=== PATIENT | male | born 1960 | race Caucasian/White ===

== ENCOUNTER 2021-10-07 14:17 | Emergency (ER) | payer OTHER, SELFPAY ==
--- NOTE | ~2021-10-07 | CT_ITS ---
EXAMINATION: CT chest abdomen pelvis wo con DATE: 10/07/2021 16:18 INDICATION: Left chest and right arm pain after a large cabinet fell and pin the patient 3 days prior . TECHNIQUE: Computed tomography (CT) of the chest, abdomen, and pelvis was performed without intraveno us contrast. Automated exposure control and iterative reconstruction technique were employed. The dos e-length product was 500.90 mGy-cm. COMPARISON: None FINDINGS: CHEST CT: Mild emphysema. Linear atelectasis/scarring in the dependent aspect of the bilateral lower lobes. No pneumonia, pulmonary edema, pleural effusion or pneumothorax. Heart size is normal. No pericardial ef fusion. Thoracic aorta is normal in caliber with no periaortic stranding to suggest an acute traumati c aortic injury. No pathologically enlarged thoracic lymphadenopathy. Chronic appearing mild anterior wedging at T7 and T8. Mild thoracic spondylosis. No acute fractures identified. ABDOMEN/PELVIS CT: Liver, gallbladder, spleen, pancreas, bilateral adrenal glands and right kidney are normal. 2-3 mm no nobstructing stone at a lower pole calyx of the left kidney. There is moderate colonic diverticulosis with a sigmoid and descending colon predominance without adjacent inflammatory change to suggest div erticulitis. Small bowel and appendix are normal. Bladder is normal. Prostatomegaly measuring 4.6 x 3 .5 cm. No free intraperitoneal gas or fluid. There is calcified atherosclerosis of the normal calibe r abdominal aorta and bilateral iliac arteries. arteries. Additional chronic appearing mild anterior wedging at L1. No acute fractures identified. IMPRESSION: 1. No acute fracture or evident vascular or visceral organ injury in the chest, abdomen or pelvis. 2. Nonobstructing 2-3 mm left renal stone. 3. Diverticulosis. 4. Prostatomegaly. Reviewed, dictated and finalized at location B.
[2021-10-07 14:18] VITALS: BP 143/65; PULSE 76; RESP 18; TEMP 36.8; O2SAT 100
--- NOTE | 2021-10-07 14:21 | ECG_ITS ---
Measurements Intervals [place] Rate: 69 P: 72 [place]: 168 QRS: -68 QRSD: 138 T: 38 QT: 352 QTc: 377 Interpretive Statements SINUS RHYTHM RIGHT BUNDLE BRANCH BLOCK LEFT ANTERIOR FASCICULAR BLOCK BASELINE ARTIFACT- I, II, III, AVF, V3-V6 ABNORMAL ECG Electronically Signed On 10-07-2021 14:44:00 CDT by Chu Yo D.O.
--- NOTE | 2021-10-07 14:31 | ED.GENADULT ---
HPI - General Adult General Chief complaint: Unspecified Stated complaint: cabinet fell on pt. Time Seen by Provider: 10/07/21 14:31 Source: patient Mode of arrival: ambulatory Limitations: no limitations History of Present Illness HPI narrative: Patient drove himself to the emergency room complaining of diffuse chest pain across the chest and right upper quadrant started 4 days ago, after a wood cabinet about 100 pounds fell 4 feet height on his chest. He denies other injuries. Pain is getting worse. He denies any fever, chills, nausea, vomiting, shortness of breath, back pain or other injuries. Related Data Allergies Allergy/AdvReac Type Severity Reaction Status Date / Time amoxicillin Allergy Severe Swelling Verified 10/07/21 15:38 of Lip/Tongue/Throat Iodinated Contrast Media Allergy Swelling Verified 10/07/21 16:19 of Lip/Tongue/Throat Review of Systems Review of Systems: All systems reviewed & are unremarkable except as noted in HPI and below Exam Narrative: General appearance: Well-developed, well-nourished Skin: Normal color Head: Normocephalic, nontraumatic Eyes: Clear conjunctiva ENT: Oropharynx normal, ears normal, nose normal Neck: Supple, nontender Chest and respiratory: Airway patent, no respiratory distress, no accessory muscle use, bruises of left chest, diffuse tenderness Heart: Regular rate/rhythm Abdomen: Soft, nontender, no organomegaly, quiet bowel sounds Vascular: Normal peripheral pulses, normal capillary refill. 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, no gross motor deficit Course Vital Signs Vital signs: Vital Signs Temperature 36.8 C 10/07/21 14:18 Pulse Rate 76 10/07/21 14:18 Respiratory Rate 18 10/07/21 14:18 Blood Pressure 143/65 H 10/07/21 14:18 Pulse Oximetry 100 10/07/21 14:18 Oxygen Delivery Room Air 10/07/21 14:18 Temperature 36.8 C 10/07/21 14:18 Pulse Rate 76 10/07/21 14:18 Respiratory Rate 18 10/07/21 14:18 Blood Pressure 143/65 H 10/07/21 14:18 Pulse Oximetry 100 10/07/21 14:18 Oxygen Delivery Room Air 10/07/21 14:18 Medical Decision Making Differential Diagnosis Differential Diagnosis: rib fracture, pulmonary contusion, pneumothorax, hemothorax, liver injury. Vital Signs Vital Signs: Vital Signs Temperature 36.8 C 10/07/21 14:18 Pulse Rate 76 10/07/21 14:18 Respiratory Rate 18 10/07/21 14:18 Blood Pressure 143/65 H 10/07/21 14:18 Pulse Oximetry 100 10/07/21 14:18 Oxygen Delivery Room Air 10/07/21 14:18 Temperature 36.8 C 10/07/21 14:18 Pulse Rate 76 10/07/21 14:18 Respiratory Rate 18 10/07/21 14:18 Blood Pressure 143/65 H 10/07/21 14:18 Pulse Oximetry 100 10/07/21 14:18 Oxygen Delivery Room Air 10/07/21 14:18 Lab Data Result diagrams: 10/07/21 15:21 10/07/21 15:21 Labs: Lab Results 10/07/21 10/07/21 Range/Units 15:21 15:21 WBC 11.8 H (4.5-10.0) K/mm3 RBC 4.51 L (4.6-6.20) M/mm3 Hgb 14.9 (14.0-18.0) g/dL Hct 43.5 (42.0-52.0) % MCV 96.5 (80-100) fl MCH 33.0 (26-34) pg MCHC 34.3 (32-36) g/dl RDW 13.2 (11.5-14.5) % Plt Count 211 (150-375) k/mm3 MPV 9.7 (7.4-10.4) fl Immature Gran % (Auto) 0.3 (0-0.5) % Neut % (Auto) 78.2 H (45.5-73.1) % Lymph % (Auto) 13.8 L (18.3-44.2) % [place] % (Auto) 5.5 (2.6-8.5) % Eos % (Auto) 1.9 (0-4.4) % Baso % (Auto) 0.3 (0.2-1.2) % Lymph # (Auto) 1.63 (0.9-3.2) K/mm3 [place] # (Auto) 0.7 H (0.1-0.6) K/mm3 Eos # (Auto) 0.2 (0-0.3) K/mm3 Baso # (Auto) 0.0 (0.
[2021-10-07 14:46] VITALS: BP 122/72; PULSE 70; RESP 18; O2SAT 98
[2021-10-07 15:30] LABS: Basophils Percent Auto 0.3 % (0.2-1.2); Eosinophils Absolute Auto 0.2 K/mm3 (0-0.3); Eosinophils Percent Auto 1.9 % (0-4.4); Hematocrit 43.5 % (42.0-52.0); Hemoglobin 14.9 g/dL (14.0-18.0); Immature Granulocyte Absolute 0.04 K/mm3 (0.00-0.031); Immature Granulocyte Percent A 0.3 % (0-0.5); Lymphocytes Absolute Auto 1.63 K/mm3 (0.9-3.2); Lymphocytes Percent Auto 13.8 % (18.3-44.2); Mean Corpuscular HGB Conc 34.3 g/dl (32-36); Mean Corpuscular Volume 96.5 fl (80-100); Mean Platelet Volume 9.7 fl (7.4-10.4); Monocytes Absolute Auto 0.7 K/mm3 (0.1-0.6); Monocytes Percent Auto 5.5 % (2.6-8.5); Neutrophils Absolute Auto 9.2 K/mm3 (1.3-6.7); Neutrophils Percent Auto 78.2 % (45.5-73.1); Platelet Count Result 211 k/mm3 (150-375); Red Blood Count 4.51 M/mm3 (4.6-6.20); Red Cell Distribution Width 13.2 % (11.5-14.5); White Blood Count 11.8 K/mm3 (4.5-10.0)
[2021-10-07 15:38] LABS: Alanine Aminotransferase 20 U/L (6-50); Albumin Level 4.4 g/dL (3.5-5.1); Alkaline Phosphatase 70 U/L (38-126); Anion Gap 5 mmol/L (8-16); Aspartate Amino Transferase 24 U/L (17-59); Bilirubin,Total 0.3 mg/dL (0.2-1.3); Blood Urea Nitrogen 6 mg/dL (9-20); Carbon Dioxide 28 mmol/L (22-30); Chloride 107 mmol/L (98-107); Estimated CRCL calculation 90 ml/min; Estimated Glomerular Filt Rate > 60; Glucose 93 mg/dL (65-110); Lipase 344 U/L (23-300); Potassium 4.3 mmol/L (3.4-5.0); Sodium 140 mmol/L (137-145)
[2021-10-07] MEDS: HYDROcodone/acetaminophen (*CRX) 5-325 MG TABLET 1 TAB PO (15:43)
--- NOTE | 2021-10-07 15:43 | PC.NURSE ---
pt states that motrin and tylenol tears up his stomach. pt refusing motrin. states will take narcotic.
[2021-10-07 15:49] LABS: Troponin I < 0.012 ng/mL (0.000-0.034)
[2021-10-07 16:02] VITALS: BP 127/68; PULSE 65; RESP 17; O2SAT 98
--- NOTE | 2021-10-07 16:04 | PC.NURSE ---
at bedside for iv line placement and pt stating that he had dye one time that almost killed me . unsure of what dye or what test it was. when asked if he has an iodine allergy pt responds with a little
[2021-10-07 17:30] VITALS: BP 118/65; PULSE 67; RESP 18; O2SAT 100
== END 2021-10-07 17:31 | disposition home or self-care (01) ==
PROVIDERS: Emergency Provider Emergency Medicine; PCP Internal Medicine
DX: S20.212A Contusion of left front wall of thorax, initial encounter (principal); N20.0 Calculus of kidney; K57.90 Diverticulosis of intestine, part unspecified, without perforation or abscess without bleeding; N40.0 Benign prostatic hyperplasia without lower urinary tract symptoms; I45.2 Bifascicular block; W20.8XXA Other cause of strike by thrown, projected or falling object, initial encounter
CPT/HCPCS: 36415; 71250; 74176; 80053; 83690; 84484; 85025; 93005; 99284; A9270

== ENCOUNTER 2022-01-21 14:00 | Outpatient (CLI) | payer OTHER, SELFPAY ==
[2022-01-21 15:54] LABS: Basophils Percent Auto 0.5 % (0.2-1.2); Eosinophils Absolute Auto 0.2 K/mm3 (0-0.3); Eosinophils Percent Auto 2.4 % (0-4.4); Hemoglobin 14.4 g/dL (14.0-18.0); Immature Granulocyte Absolute 0.05 K/mm3 (0.00-0.031); Immature Granulocyte Percent A 0.6 % (0-0.5); Lymphocytes Absolute Auto 1.77 K/mm3 (0.9-3.2); Lymphocytes Percent Auto 21.6 % (18.3-44.2); Mean Corpuscular HGB Conc 33.5 g/dl (32-36); Mean Corpuscular Volume 98.6 fl (80-100); Mean Platelet Volume 10.7 fl (7.4-10.4); Monocytes Absolute Auto 0.6 K/mm3 (0.1-0.6); Monocytes Percent Auto 7.6 % (2.6-8.5); Neutrophils Absolute Auto 5.5 K/mm3 (1.3-6.7); Neutrophils Percent Auto 67.3 % (45.5-73.1); Platelet Count Result 180 k/mm3 (150-375); Red Blood Count 4.36 M/mm3 (4.6-6.20); Red Cell Distribution Width 13.7 % (11.5-14.5); White Blood Count 8.2 K/mm3 (4.5-10.0)
[2022-01-21 16:08] LABS: Add Urine Microscopic? NO; Appearance Urine Clear (Clear); Bilirubin Urine Negative (Negative); Blood Urine Negative (Negative); Color Urine Yellow (Yellow); Glucose Urine UA Negative (Negative); Ketones Urine Negative (Negative); Leukocyte Esterase Ur Negative LEU/UL (NEGATIVE); Nitrate Urine Negative (Negative); Protein Urine Negative (Negative); Specific Grav Ur <= 1.005 (1.001-1.035); Urobilinogen Urine 0.2 mg/dL (<2.0)
[2022-01-21 16:24] LABS: Vitamin D 25 Hydroxy 18.2 ng/mL
[2022-01-21 16:53] LABS: Alanine Aminotransferase 19 U/L (6-50); Albumin Level 4.5 g/dL (3.5-5.1); Alkaline Phosphatase 70 U/L (38-126); Anion Gap 9 mmol/L (8-16); Aspartate Amino Transferase 24 U/L (17-59); Bilirubin,Total 0.5 mg/dL (0.2-1.3); Blood Urea Nitrogen 8 mg/dL (9-20); Calcium 9.1 mg/dL (8.4-10.2); Carbon Dioxide 21 mmol/L (22-30); Chloride 107 mmol/L (98-107); Cholesterol 214 mg/dL (0-200); Estimated Glomerular Filt Rate > 60; Glucose 116 mg/dL (65-110); HDL Direct 38 mg/dL; Potassium 3.8 mmol/L (3.4-5.0); Sodium 137 mmol/L (137-145); Triglycerides 180 mg/dL (<150); Uric Acid 5.6 mg/dL (3.5-8.5)
[2022-01-21 17:13] LABS: LDL Cholesterol Direct 126 mg/dL
[2022-01-21 17:27] LABS: Prostate Specific Antigen 0.3 ng/mL (< OR = 4.0)
== END 2022-01-21 14:01 | disposition home or self-care (01) ==
PROVIDERS: PCP Internal Medicine; Visit Provider Internal Medicine
DX: Z00.00 Encounter for general adult medical examination without abnormal findings (principal); K21.9 Gastro-esophageal reflux disease without esophagitis; E11.9 Type 2 diabetes mellitus without complications
CPT/HCPCS: 36415; 80053; 80061; 81003; 82306; 82607; 84153; 84443; 84550; 85025

== ENCOUNTER 2024-02-13 09:13 | Observation (INO) | payer OTHER, SELFPAY ==
[2024-02-13] VITALS (24 sets, daily range): BP systolic 107–140; BP diastolic 57–98; PULSE 54–175; RESP 12–28; TEMP 36.4–36.7; O2SAT 91–98; BMI 23.6
--- NOTE | ~2024-02-13 | XR_ITS ---
EXAMINATION: XR chest 2V 02/13/2024 10:02 INDICATION: Chest pain and shortness of breath PROCEDURE: 2 view chest COMPARISON: No prior studies for comparison. FINDINGS: The lungs are clear. The lungs are hyperinflated which is consistent with, but not diagnost ic of chronic obstructive pulmonary disease. The cardiomediastinal silhouette is within normal limit s. There are no pleural effusions. There is no pneumothorax suspected. IMPRESSION: 1: NO ACUTE CARDIOPULMONARY DISEASE. Reviewed, dictated and finalized at location B.
--- NOTE | 2024-02-13 09:14 | ECG_ITS ---
Test Date: 2024-02-13 09:21:32 Measurements Intervals [place] Rate: 151 P: 0 [place]: 0 QRS: -77 QRSD: 137 T: 87 QT: 309 QTc: 491 Interpretive Statements ATRIAL FIBRILLATION WITH RAPID VENTRICULAR RESPONSE RIGHT BUNDLE BRANCH BLOCK LEFT ANTERIOR FASCICULAR BLOCK LEFT VENTRICULAR HYPERTROPHY WITH ST-T CHANGE BASELINE ARTIFACT- I, II, AVR ABNORMAL ECG No previous ECG available for comparison Electronically Signed On 02-13-2024 15:32:11 CDT by Chu Yo D.O.
--- NOTE | 2024-02-13 09:23 | ED.CHESTPAIN ---
HPI - Chest Pain General Chief Complaint: Chest Pain Stated Complaint: I think I'm having a heart attack Time Seen by Provider: 02/13/24 09:23 Source: patient Limitations: no limitations History of Present Illness HPI narrative: 63 YEARS OLD WHITE MALE DROVE HIMSELF TO THE EMERGENCY ROOM COMPLAINING OF INTERMITTENT SHORTNESS OF BREATH, DIZZINESS, HEADACHE, POUNDING HEARTBEAT FOR OVER 1 MONTH. GETTING WORSE LATELY AND MORE PROLONGED THAN BEFORE. PATIENT HAVE TREMENDOUS AMOUNT OF STRESS LATELY, ABOUT TO LOSE HIS HOUSE AND BE HOMELESS. HE SMOKES MORE THAN 2 PACKS OF CIGARETTES A DAY, DENIES ALCOHOL OR DRUG USE. PATIENT IS HEALTHY OTHERWISE, DOES NOT TAKE MEDICINE AT HOME. Related Data Allergies Allergy/AdvReac Type Severity Reaction Status Date / Time amoxicillin Allergy Severe Swelling Verified 02/13/24 09:18 of Lip/Tongue/Throat Iodinated Contrast Media Allergy Swelling Verified 02/13/24 09:18 of Lip/Tongue/Throat Review of Systems Review of Systems: All systems reviewed & are unremarkable except as noted in HPI and below Exam Narrative: GENERAL APPEARANCE: WELL-DEVELOPED, WELL-NOURISHED, RESTLESS, ANXIOUS SKIN: NORMAL COLOR HEAD: NORMOCEPHALIC, NONTRAUMATIC EYES: CLEAR CONJUNCTIVA ENT: OROPHARYNX NORMAL, EARS NORMAL, NOSE NORMAL NECK: SUPPLE, NONTENDER CHEST AND RESPIRATORY: AIRWAY PATENT, NO RESPIRATORY DISTRESS, NO ACCESSORY MUSCLE USE HEART: TACHYCARDIA, IRREGULAR IRREGULARITY ABDOMEN: SOFT, NONTENDER, NO ORGANOMEGALY, QUIET BOWEL SOUNDS VASCULAR: NORMAL PERIPHERAL PULSES, NORMAL CAPILLARY REFILL. MUSCULOSKELETAL: NORMAL RANGE OF MOTION, NONTENDER BACK NEUROLOGIC: ALERT AND ORIENTED ?3, CONE MARKER IS NORMAL TESTED, NO GROSS MOTOR DEFICIT Course Consultations Consultation #1: DR COSTELLO TEXT EKG, AGREED THE EKG SHOWING FINDING SECONDARY TO RIGHT BUNDLE-BRANCH BLOCK. PATIENT DENIED ANY CHEST PAIN. ADMIT TO HOSPITALIST, ACCEPTED CONSULT. Date: 02/13/24 Time: 11:49 Vital Signs Vital signs: Vital Signs Temperature 36.7 C 02/13/24 09:16 Pulse Rate 161 H 02/13/24 09:16 Respiratory Rate 27 H 02/13/24 09:16 Blood Pressure 112/98 H 02/13/24 09:16 Pulse Oximetry 98 02/13/24 09:16 Oxygen Delivery Room Air 02/13/24 09:16 Temperature 36.7 C 02/13/24 09:16 Pulse Rate 137 H 02/13/24 10:31 Respiratory Rate 18 02/13/24 10:31 Blood Pressure 109/69 02/13/24 10:31 Pulse Oximetry 95 02/13/24 10:31 Oxygen Delivery Room Air 02/13/24 09:26 MDM - Chest Pain MDM Narrative Medical decision making narrative: PATIENT PRESENTS WITH INTERMITTENT SHORTNESS OF BREATH, BOUNDING HER BEATS AND A LOT OF STRESS VITAL SIGNS SHOWED HEART RATE OF 161 BEATS PER MINUTE, IRREGULAR IRREGULARITY, RESPIRATIONS 27 PER MINUTE PHYSICAL EXAMINATION SHOWED ANXIOUS, RESTLESS PATIENT WITH TACHYCARDIA, IRREGULAR IRREGULARITY, MONITOR SHOWING AFIB WITH RVR DIFFERENTIAL DIAGNOSE AFIB WITH RVR SECONDARY TO STRESS, LACK OF SLEEP, HYPERTHYROIDISM, CORONARY ARTERY DISEASE, CARDIAC VALVE ABNORMALITIES. BLOOD WORKUP TODAY SHOWED CARBON DIOXIDE OF 20, CHLORIDE OF 108, PATIENT WAS HYPERVENTILATING ON ARRIVAL TO THE ED CHEST X-RAY SHOWED NO ACUTE ABNORMALITIES EKG ON ARRIVAL SHOWED AFIB WITH RVR CARDIZEM BOLUS AND DRIP STARTED, IV ATIVAN GIVEN PATIENT HEART RATE IS IMPROVING CURRENTLY LESS THAN 100 BEATS PER MINUTE, STILL AFIB. ADMIT TO HOSPITALIST, WITH NEW ONSET OF AFIB WITH RVR, ANXIETY LIKE SYMPTOMS. REPEATED EKG SHOWED THAT THE PATIENT HAVE NORMAL SINUS RHYTHM AT 65 BEATS PER MINUTE, ST ELEVATION IN V2 AND POSSIBLE V3 HIGH LIKELY SECONDARY TO RIGHT BUNDLE-BRANCH BLOCK, CURRENTLY PATIENT FEELING MUCH BETTER, DENYING ANY SYMPT
[2024-02-13] MEDS: dilTIAZem HCl INJ 25 MG/5 ML VIAL 10 MG IV PUSH (09:31)
[2024-02-13] MEDS: dilTIAZem 100 MG/100 ML 100 MG/100 ML BAG IV CONT (09:32)
[2024-02-13] MEDS: ENOXAPARIN 80 MG/0.8 ML SYRINGE SUB-Q (09:34)
[2024-02-13] MEDS: LORazepam INJ (*CRX) 2 MG/ML VIAL 1 MG IV PUSH ×2 (09:35→10:40)
[2024-02-13 09:38] LABS: Basophils Percent Auto 0.2 % (0.2-1.2); Eosinophils Absolute Auto 0.1 K/mm3 (0-0.3); Eosinophils Percent Auto 1.4 % (0-4.4); Hemoglobin 16.2 g/dL (14.0-18.0); Immature Granulocyte Absolute 0.04 K/mm3 (0.00-0.031); Immature Granulocyte Percent A 0.4 % (0-0.5); Lymphocytes Absolute Auto 1.64 K/mm3 (0.9-3.2); Lymphocytes Percent Auto 17.6 % (18.3-44.2); Mean Corpuscular HGB Conc 34.5 g/dl (32-36); Mean Corpuscular Hemoglobin 32.7 pg (26-34); Mean Corpuscular Volume 94.8 fl (80-100); Mean Platelet Volume 9.6 fl (7.4-10.4); Monocytes Absolute Auto 0.8 K/mm3 (0.1-0.6); Monocytes Percent Auto 8.9 % (2.6-8.5); Neutrophils Absolute Auto 6.7 K/mm3 (1.3-6.7); Neutrophils Percent Auto 71.5 % (45.5-73.1); Platelet Count Result 211 k/mm3 (150-375); Red Blood Count 4.96 M/mm3 (4.6-6.20); Red Cell Distribution Width 13.2 % (11.5-14.5); White Blood Count 9.3 K/mm3 (4.5-10.0)
[2024-02-13 09:48] LABS: Alanine Aminotransferase 17 U/L (6-50); Albumin Level 4.6 g/dL (3.5-5.1); Alkaline Phosphatase 105 U/L (38-126); Anion Gap 11 mmol/L (4-12); Aspartate Amino Transferase 23 U/L (17-59); Bilirubin,Total 0.6 mg/dL (0.2-1.3); Blood Urea Nitrogen 5 mg/dL (9-20); Calcium 9.1 mg/dL (8.4-10.2); Carbon Dioxide 20 mmol/L (22-30); Chloride 108 mmol/L (98-107); Estimated CRCL calculation 78 ml/min; Estimated Glomerular Filt Rate > 60; Glucose 113 mg/dL (65-110); Lipase 61 U/L (23-300); Potassium 3.7 mmol/L (3.4-5.0); Sodium 139 mmol/L (137-145)
[2024-02-13 09:54] LABS: INR 0.9; Prothrombin Time 13.1 Seconds (11.1-14.7)
[2024-02-13 10:00] LABS: Troponin I < 0.012 ng/mL (0.000-0.034)
--- NOTE | 2024-02-13 10:35 | PC.NURSE ---
pt requesting more Ativan due to anxiety. pt on monitor with VS stable. Verbal order by
--- NOTE | 2024-02-13 10:55 | ECG_ITS ---
Test Date: 2024-02-13 11:12:56 Measurements Intervals [place] Rate: 68 P: 163 [place]: 260 QRS: -80 QRSD: 130 T: 120 QT: 402 QTc: 430 Interpretive Statements SINUS RHYTHM RIGHT BUNDLE BRANCH BLOCK LEFT ANTERIOR FASCICULAR BLOCK LEFT VENTRICULAR HYPERTROPHY WITH ST-T CHANGE T WAVE ABNORMALITY IN ANTEROLATERAL LEADS- CONSIDER ISCHEMIA BASELINE ARTIFACT- I, III, AVR, AVL, AVF, V1-V6 ABNORMAL ECG Compared to ECG 02/13/2024 09:21:32 Atrial fibrillation no longer present T WAVE ABNORMALITY, CONSIDER ISCHEMIA NOW PRESENT Electronically Signed On 02-13-2024 15:34:48 CDT by Chu Yo D.O.
--- NOTE | 2024-02-13 11:24 | ECG_ITS ---
Test Date: 2024-02-13 11:26:18 Measurements Intervals [place] Rate: 65 P: 58 [place]: 171 QRS: -73 QRSD: 140 T: 95 QT: 414 QTc: 430 Interpretive Statements SINUS RHYTHM RIGHT BUNDLE BRANCH BLOCK LEFT ANTERIOR FASCICULAR BLOCK LEFT VENTRICULAR HYPERTROPHY AND ST-T CHANGE T WAVE ABNORMALITY IN ANTEROLATERAL LEADS- CONSIDER ISCHEMIA BASELINE ARTIFACT- I, III, AVL ABNORMAL ECG Compared to ECG 02/13/2024 11:12:56 NO SIGNIFICANT CHANGE Electronically Signed On 02-13-2024 15:35:53 CDT by Chu Yo D.O.
[2024-02-13 12:51] LABS: Troponin I 0.014 ng/mL (0.000-0.034)
--- NOTE | 2024-02-13 13:15 | ADMGEN ---
This patient, Terrance Chauhan, was admitted to IMU Room 206-01. Patient/family oriented to hospital policies and general routines including ID bracelet, bed and alarms, visiting hours, pain management, procedures, bathroom and other care routines, personal items, smoking policy, room service/diet, and visiting hours. Information on how to activate the Rapid Response Team has been discussed. Patient/Family are encouraged to report perceived risks to care and to ask questions if they do not understand what they are told or what they should do.
--- NOTE | 2024-02-13 13:15 | PM.IMHP ---
H&P: HPI History of Present Illness Date/Time: 02/13/24 14:00 Chief Complaint: Chest pain and shortness of breath. Narrative: This is a 63-year-old male smoker with anxiety who presented to the emergency department via private vehicle for evaluation of chest pain and shortness of breath. The patient provides the following history. He has had intermittent chest chest pain, shortness of breath, and dizziness over the past month or so. With further questioning he denies overt chest pain and instead reports that his heart feels as though it is pounding. He does not see a pattern as to when these symptoms occur but they are becoming increasingly more frequent. Additionally the patient states he has had a lot of stressors lately and is to the point where he is probably going to lose his home. This of course is causing him a lot of anxiety. He denies syncope, near syncope, pleuritic pain, orthopnea, paroxysmal nocturnal dyspnea, lower extremity edema, calf pain, nausea, vomiting, and sweats. In the ED: Pulse was as high as 175 on arrival with stable blood pressures. EKG showed rapid atrial fibrillation with right bundle-branch block; no significant ST segment depressions or elevations. CMP and CBC were without significant findings. Troponins have been negative x2. Chest x-ray showed no acute cardiopulmonary findings but did note hyperinflated lungs. He was given diltiazem 10 mg IV push and was started on a diltiazem drip. He was also given aspirin 324 mg and lorazepam 1 mg IV. Is being admitted in this setting for further treatment and evaluation. Review of Systems Review of Systems: 12 systems were reviewed and are negative except for as per HPI. [facility] Past Medical History Medical History (Updated 02/13/24 @ 13:24 by Hali Gonzalez PA-C) Tobacco abuse Family History Family History Father Cerebrovascular accident Acute myocardial infarction Mother Diabetes mellitus Hypertension Congestive heart failure History of blood clots Cerebrovascular accident Other Acute myocardial infarction Afib Social History Social History (Updated 02/13/24 @ 13:20 by Hali Gonzalez PA-C) Social History: Surrogate medical decision maker: Hannah Chauhan, mother. Code status: Full code. Smoking packs per day: 1 Smoking cigarettes per day: 20.0 Years smoked: 50 Smoking pack-years: 50.00 Smoking status: Current every day smoker Tobacco type: cigarettes Alcohol intake: never Substance use: never Do You Feel Safe in your Home?: Yes Lack of Transportation: No Lack of Food: Never True Current Housing: I Have Housing Concerned About Future Housing: YES Difficulty Paying Gas/Electric Bills: YES Difficulty Paying for Meds: No Currently Unemployed: No Education: Grade School Difficulty w/ Childcare or Family Care: No Spiritual care concerns: No Meds Home Medications and Allergies Home Medications Medication Instructions Recorded Confirmed Type No Home Medications 02/13/24 02/13/24 History Allergies Allergy/AdvReac Type Severity Reaction Status Date / Time amoxicillin Allergy Severe Swelling Verified 02/13/24 09:18 of Lip/Tongue/Throat Iodinated Contrast Media Allergy Swelling Verified 02/13/24 09:18 of Lip/Tongue/Throat Vital Signs Vital Signs - 24 hr 02/13/24 09:16 02/13/24 09:24 02/13/24 09:26 Temperature 98.0 F Pulse Rate 161 H 159 H Respiratory Rate 27 H Blood Pressure 112/98 H Pulse Oximetry 98 98 Oxygen Delivery Room Air Room Air 02/13/24 09:32 02/13/24 09:40 02/13/24 09:41 Temperature Pulse Rate 175 H 103 H 152 H Respiratory Rate 12 Blood Pressure 112/98 H 140/81 140/81 Pulse Oximetry 98 Oxygen Delivery 02/13/24 09:50 02/13/24 10:17 02/13/24 10:29 Temperature Pulse Rate 90 66 144 H Respiratory Rate 16 14 Blood Pressure 140/81 127/92 H 127
[2024-02-13] MEDS: METOPROLOL TARTRATE 12.5 MG TABLET PO (13:59)
--- NOTE | 2024-02-13 14:25 | ECG_ITS ---
Test Date: 2024-02-13 12:09:42 Measurements Intervals [place] Rate: 65 P: 50 [place]: 172 QRS: -74 QRSD: 140 T: 109 QT: 417 QTc: 434 Interpretive Statements SINUS RHYTHM RIGHT BUNDLE BRANCH BLOCK LEFT ANTERIOR FASCICULAR BLOCK LEFT VENTRICULAR HYPERTROPHY WITH ST-T CHANGE T WAVE ABNORMALITY IN ANTEROLATERAL LEADS- CONSIDER ISCHEMIA BASELINE ARTIFACT- I, III ABNORMAL ECG Compared to ECG 02/13/2024 11:26:18 NO SIGNIFICANT CHANGE Electronically Signed On 02-13-2024 15:38:05 CDT by Chu Yo D.O.
--- NOTE | 2024-02-13 15:40 | PC.NURSE ---
Reviewed and acknowledge charting Leonora Veliz [facility]
[2024-02-13 15:44] LABS: Troponin I 0.013 ng/mL (0.000-0.034)
--- NOTE | 2024-02-13 15:44 | ECG_ITS ---
Test Date: 2024-02-13 16:26:20 Measurements Intervals [place] Rate: 56 P: 62 SD: 166 QRS: -62 QRSD: 142 T: 111 QT: 446 QTc: 433 Interpretive Statements SINUS BRADYCARDIA RIGHT BUNDLE BRANCH BLOCK LEFT ANTERIOR FASCICULAR BLOCK LEFT VENTRICULAR HYPERTROPHY AND ST-T CHANGE T WAVE ABNORMALITY IN ANTEROLATERAL LEADS- CONSIDER ISCHEMIA ABNORMAL ECG Compared to ECG 02/13/2024 12:09:42 HEART RATE HAS DECREASED Electronically Signed On 02-13-2024 20:16:38 CDT by Chu Yo D.O.
[2024-02-13] MEDS: MIRTAZAPINE 15 MG TABLET 45 MG PO (20:59)
[2024-02-14] VITALS (10 sets, daily range): BP systolic 117–155; BP diastolic 64–82; PULSE 53–86; RESP 16–20; TEMP 36.2–36.8; O2SAT 93–98
--- NOTE | 2024-02-14 | ECHO_ITS ---
Patient Info Name: Terrance Chauhan Age: 63 years : 1960 Gender: Male Ht: 72 in Wt: 189 lbs BSA: 2.10 m2 Exam Date: 02/14/2024 9:37 AM Exam Location: Echo Lab Patient Status: Outpatient Admit Date: 02/13/2024 Staff Ordering Physician: Hali Gonzalez PA-C Attending Provider: Tarik Ch MD Referring Physician: Carlos BLAIR; Exam Type: CA echo doppler color flow Summary 1. The left ventricle size and systolic function is normal. 2. LVEF visually appears 60-65%. Left Ventricle The left ventricle size and systolic function is normal. LVEF visually appears 60-65%. Right Ventricle The right ventricle size and systolic function is. Left Atria The left atrium is normal size. Right Atria The right atrium is normal size. Aortic Valve Aortic valve is trileaflet. It opens well. There is no aortic regurgitation. Pulmonic Valve The pulmonic valve is not well visualized. There is no color Doppler evidence of pulmonary regurgitation. Mitral Valve The mitral valve leaflets are thin and pliable. There is no mitral regurgitation. Tricuspid Valve The tricuspid valve leaflets are thin and pliable. There is trivial tricuspid regurgitation. Inferior Vena Cava Normal inferior vena cava with >50% collapse upon inspiration consistent with normal right atrial pressure, 3 mmHg. Normal inferior vena cava with >50% collapse upon inspiration consistent with normal right atrial pressure, 3 mmHg. Aorta The aortic root at the level of the sinus of Valsalva is normal in diameter measuring 3.2 cm. Left Ventricular Outflow Tract Name Value Normal LVOT 2D LVOT Diameter 1.9 cm LVOT Doppler LVOT Peak Gradient 7 mmHg LVOT Mean Gradient 4 mmHg LVOT VTI 32 cm LVOT VTI/AV VTI Ratio 0.9 LVOT Stroke Volume 90 ml LVOT CO 5.0 l/min LVOT CI 2.4 l/min/m2 Pulmonic Valve Name Value Normal PV Doppler PV Peak Gradient 2 mmHg Mitral Valve Name Value Normal MV Doppler MV Decel [place] 284 cm/s2 MV PHT 70 ms MV Area (PHT) 3.1 cm2 4.0-5.0 MV Diastolic Function MV E Peak Velocity 69 cm/s MV A Peak Velocity 65 cm/s MV E/A 1.1 MV Decel Time 242 ms MV Annular TDI
[2024-02-14 08:08] LABS: Anion Gap 3 mmol/L (4-12); Blood Urea Nitrogen 7 mg/dL (9-20); Calcium 8.7 mg/dL (8.4-10.2); Carbon Dioxide 30 mmol/L (22-30); Chloride 106 mmol/L (98-107); Cholesterol 183 mg/dL (0-200); Estimated CRCL calculation 86 ml/min; Estimated Glomerular Filt Rate > 60; Glucose 87 mg/dL (65-110); HDL Direct 36 mg/dL; Potassium 3.8 mmol/L (3.4-5.0); Sodium 139 mmol/L (137-145); Triglycerides 104 mg/dL (<150)
[2024-02-14 08:21] LABS: LDL Cholesterol Direct 119 mg/dL
[2024-02-14] MEDS: SERTRALINE HCL 50 MG TABLET 200 MG PO (09:19)
[2024-02-14] MEDS: METOPROLOL TARTRATE 12.5 MG TABLET PO (09:21)
--- NOTE | 2024-02-14 14:41 | PM.CNCAR ---
Assessment and Plan Assessment and plan (1) Atrial fibrillation with rapid ventricular response: Code(s): I48.91 - Unspecified atrial fibrillation Status: Acute Plan 63 yo man with HTN, active smoker, and anxiety presented with palpitations found to have atrial fibrillation with rapid ventricular rate. pAF - has since converted to sinus - CHADsVASc score of 1 - continue metoprolol at home dose - can follow up outpatient History of Present Illness History of Present Illness Consult date/time: 02/14/24 14:41 Requesting physician: Hali Gonzalez PA-C Consult reason: atrial fibrillation Reason For Visit: New Onset Afib w RVR/Anxiety Like Symptoms Narrative: 63 yo man with HTN, active smoker, and anxiety presented with palpitations. Associated sharp substernal chest pain and shortness of breath. Denies syncope. Typically physically active and can walk up to 1/2 mi and carry heavy materials. Have not noticed any decline in functional status. However he does endorse feeling significant stress. He states that this happened 1 other time last year. Review of Systems Review of Systems: All systems reviewed & are unremarkable except as noted in HPI and below PMFSH Past Medical History Medical History (Updated 02/13/24 @ 13:24 by Hali Gonzalez PA-C) Tobacco abuse Family History Family History Father Cerebrovascular accident Acute myocardial infarction Mother Diabetes mellitus Hypertension Congestive heart failure History of blood clots Cerebrovascular accident Other Acute myocardial infarction Afib Social History Social History (Updated 02/13/24 @ 13:20 by Hali Gonzalez PA-C) Social History: Surrogate medical decision maker: Hannah Perezley, mother. Code status: Full code. Smoking packs per day: 1 Smoking cigarettes per day: 20.0 Years smoked: 50 Smoking pack-years: 50.00 Smoking status: Current every day smoker Tobacco type: cigarettes Alcohol intake: never Substance use: never Do You Feel Safe in your Home?: Yes Lack of Transportation: No Lack of Food: Never True Current Housing: I Have Housing Concerned About Future Housing: YES Difficulty Paying Gas/Electric Bills: YES Difficulty Paying for Meds: No Currently Unemployed: No Education: Grade School Difficulty w/ Childcare or Family Care: No Spiritual care concerns: No Meds Home Medications and Allergies Home Medications Medication Instructions Recorded Confirmed Type No Home Medications 02/13/24 02/13/24 History Allergies Allergy/AdvReac Type Severity Reaction Status Date / Time amoxicillin Allergy Severe Swelling Verified 02/13/24 09:18 of Lip/Tongue/Throat Iodinated Contrast Media Allergy Swelling Verified 02/13/24 09:18 of Lip/Tongue/Throat Vital Signs Vital Signs - 24 hr 02/13/24 16:00 02/13/24 16:00 02/13/24 18:00 Temperature Pulse Rate 60 62 Respiratory Rate Blood Pressure Pulse Oximetry Oxygen Delivery Room Air 02/13/24 16:00 02/13/24 20:00 02/13/24 20:00 Temperature 36.7 C 36.4 C Pulse Rate 54 L 71 59 L Respiratory Rate 28 H 20 Blood Pressure 110/57 L 126/59 L Pulse Oximetry 91 94 Oxygen Delivery 02/13/24 22:00 02/13/24 20:00 02/13/24 23:28 Temperature Pulse Rate 54 L Respiratory Rate 18 Blood Pressure Pulse Oximetry 97 Oxygen Delivery Room Air Room Air 02/14/24 00:00 02/14/24 00:00 02/14/24 00:00 Temperature 36.7 C Pulse Rate 64 57 L Respiratory Rate 18 Blood Pressure 117/69 Pulse Oximetry 94 Oxygen Delivery Room Air 02/14/24 02:00 02/14/24 04:00 02/14/24 04:00 Temperature Pulse Rate 53 L 63 Respiratory Rate Blood Pressure Pulse Oximetry Oxygen Delivery Room Air 02/14/24 04:00 02/14/24 06:00 02/14/24 08:00 Temperature 36.2 C L 36.8 C Pulse Rate 55 L 54
--- NOTE | 2024-02-14 14:58 | PM.DS ---
DS: Admitting Diagnosis Discharge Date 02/14/24 Admitting Diagnosis Chest pain and shortness of breath DS: Discharge Diagnosis Discharge Diagnosis (1) Chest pain: Code(s): R07.9 - Chest pain, unspecified Status: Acute (2) Atrial fibrillation with rapid ventricular response: Code(s): I48.91 - Unspecified atrial fibrillation Status: Acute (3) Suspected chronic obstructive pulmonary disease based on initial evaluation: Code(s): J44.9 - Chronic obstructive pulmonary disease, unspecified Status: Acute (4) Tobacco abuse: Code(s): Z72.0 - Tobacco use Status: Acute (5) Anxiety: Code(s): F41.9 - Anxiety disorder, unspecified Status: Acute DS: Summary Hospital Course Reason for hospitalization: 63yo male smoker with anxiety who presented to the emergency department via private vehicle for evaluation of chest pain and shortness of breath. Please see H&P for details. Hospital Course: In the ED, patient had a pulse rate was as high as 175 with stable blood pressures. EKG showed rapid atrial fibrillation with right bundle-branch block; no significant ST segment depressions or elevations. CMP and CBC were without significant findings. Troponins were negative x3. Chest x-ray showed no acute cardiopulmonary findings but did note hyperinflated lungs. He was given diltiazem 10 mg IV push and was started on a diltiazem drip. He was also given aspirin 324 mg and lorazepam 1 mg IV. He converted to a sinus rhythm on a diltiazem drip. He was started on lower dose of metoprolol. He received enoxaparin 1 mg/kg in the ED though his [id number] is only 1 and so further anticoagulation was held. Echo showing EF 60-65% and overall normal appearing echocardiogram. Cardiology was consulted who recommended continuing metoprolol but no anticoagulation. He has been out of sertraline, hydroxyzine, and mirtazapine for nearly a month which was restarted here. Apnea link showed normal AHI and RI but 29minutes with SpO2<88%. He was educated about the benefits of smoking cessation. He overall did well and was able to be discharged home on 02/14/24. Noted to have low B12 level a few years ago so recommend he follow up with repeat testing by his PCP. Status at Discharge Cognitive/behavioral status at discharge: stable Time Spent with Patient Time attestation: Total time spent providing and/or coordinating discharge services: 35 minutes Time spent: Greater than 30 minutes Exam Narrative: AF 98.1 155/78 60 20 98% ra Gen - NARD Chest - CTA bilaterally, nml RR CV - RRR S1/S2. Tele showing PVCs Abd - Soft, NT/ND, Positive BS Ext - No pedal edema Neuro - Alert and oriented. Nonfocal exam. Psych - Nml mood and affect Skin - Warm and dry DS: Data Data Completed and Pending Labs on day of discharge: Labs from last 24 hours 02/14/24 02/13/24 07:51 14:55 Sodium 139 Potassium 3.8 Chloride 106 Carbon Dioxide 30 Anion Gap 3 L BUN 7 L Creatinine 0.80 Estim Creat Clear Calc 86 Estimated GFR > 60 Glucose 87 Calcium 8.7 Magnesium 2.0 Troponin I 0.013 Triglycerides 104 Cholesterol 183 LDL Cholesterol Direct 119 HDL Direct 36 Discharge Plan Discharge Attending physician on discharge: Leonel Ramírez Consulting providers: Jaret Boggs; Harshil Mireles Discharging Clinician: Leonel Ramírez Anticipated Discharge Date/Time: 02/14/24 15:13 Patient Disposition: Home, Self-Care Activity: as tolerated Diet: heart healthy Discharge Instructions: Stop using all products that contain tobacco or nicotine. Contact your doctor or call 911 and come to the Emergency Room if you have palpitations, lightheadedness with standing or other worrisome symptoms. Avoid NSAIDs (ibuprofen, naproxen, Aleve). Tylenol is safe to take. Follow-up with your primary care provider in 1-2 weeks. Please call for appointment. B-12
== END 2024-02-14 16:08 | disposition home or self-care (01) ==
LOC: ANHED 10:56 → ANHIMU 13:50 → ANH2MED 02-15 08:06 → ANHIMU 02-15 08:06
PROVIDERS: Physician Assistant; Admitting Provider General Practice; Emergency Provider Emergency Medicine; Visit Provider Internal Medicine
DX: I48.91 Unspecified atrial fibrillation (principal); R07.9 Chest pain, unspecified; R06.02 Shortness of breath; I45.10 Unspecified right bundle-branch block; R51.9 Headache, unspecified; J44.9 Chronic obstructive pulmonary disease, unspecified; F41.9 Anxiety disorder, unspecified; F17.210 Nicotine dependence, cigarettes, uncomplicated
CPT/HCPCS: 36415; 71046; 80048; 80053; 80061; 83690; 83735; 84443; 84484; 85025; 85610; 85730; 93005; 93306; 94762; 96365; 96366; 96372; 96375; 96376; 99285; A9270; G0378; J1650; J2060

== ENCOUNTER 2024-06-01 16:28 | Inpatient (IN) | payer OTHER, SELFPAY ==
[2024-06-01] VITALS (8 sets, daily range): BP systolic 111–131; BP diastolic 82–92; PULSE 70–81; RESP 12–20; TEMP 36.6–36.7; O2SAT 95–99; BMI 22.8
--- NOTE | ~2024-06-01 | XR_ITS ---
EXAMINATION: XR chest 1V 06/01/2024 18:01 INDICATION: Shortness of breath PROCEDURE: PA view of the chest COMPARISON: 02/13/2024 FINDINGS: The lungs are clear. The cardiomediastinal silhouette is within normal limits. There are no pleural effusions. There is no pneumothorax suspected. The lungs are hyperinflated which is consistent with, but not diagnostic of chronic obstructive pulmo nary disease. IMPRESSION: 1: NO ACUTE CARDIOPULMONARY DISEASE. Reviewed, dictated and finalized at location A. [employer]
--- NOTE | ~2024-06-01 | NM_ITS ---
EXAMINATION: NM lung vent and perfusion DATE: 06/02/2024 12:34 INDICATION: Shortness of breath. Elevated d-dimer. TECHNIQUE: 13.4 mCi xenon-133 by inhalation and 5.4 mCi Tc-99m MAA by intravenous route. Scintigraph ic images of the chest were obtained. COMPARISON: FINDINGS: There is homogeneous radiotracer activity throughout the lungs on the single breath ventilation seque nce. There are couple foci of intense activity in the right upper lobe and lingula on the perfusion i mages likely related to some clumping of the perfusion radiotracer. There is a small perfusion defect involving the mid left lower lung on the PASCUAL projection in the region of the caudal aspect of the fi ssure. There is otherwise relatively homogeneous perfusion throughout the lungs. No discrete ventila tion and perfusion mismatch is identified on the posterior scintigrams. IMPRESSION: 1. Low probability for pulmonary embolism. Reviewed, dictated and finalized at location B. [employer] MANAGER
--- NOTE | 2024-06-01 17:05 | ECG_ITS ---
Test Date: 2024-06-01 17:25:37 Measurements Intervals [place] Rate: 77 P: 76 NE: 152 QRS: -69 QRSD: 149 T: 81 QT: 424 QTc: 481 Interpretive Statements SINUS RHYTHM MARKED LEFT AXIS DEVIATION [QRS AXIS < -30] RIGHT BUNDLE BRANCH BLOCK [120+ ms QRS DURATION, UPRIGHT V1, 40+ ms S IN I/aVL/V4/V5/V6] MODERATE VOLTAGE CRITERIA FOR LVH, CONSIDER NORMAL VARIANT [MEETS CRITERIA IN ONE OF: R(aVL), S(V1), R(V5), R(V5/V6)+S(V1)] POSSIBLE SEPTAL MYOCARDIAL INFARCTION , OF INDETERMINATE AGE [30 ms Q WAVE IN V1/V2] Compared to ECG 02/13/2024 16:26:20 T-wave abnormality in the lateral leads no longer present Electronically Signed On 06-02-2024 14:28:24 CHIROPRACTIC NEUROLOGIST by Za Lopez M.D.
--- NOTE | 2024-06-01 17:07 | ED.SOB ---
HPI - SOB/Dyspnea General Chief Complaint: Shortness of Breath/Dyspnea <Elidia Laura APRN - Last Filed: 06/01/24 17:11> Stated Complaint: RESP SYMPTOMS FOR WEEKS <Elidia Laura APRN - Last Filed: 06/01/24 17:11> Time Seen by Provider: 06/01/24 17:00 <Elidia Laura APRN - Last Filed: 06/01/24 17:11> Focused HPI: Patient is a 63-year-old male who presents to the ER with shortness of breath, increased weakness, decreased appetite. He reports his symptoms started May 17, 2024. Patient reports he has a history of AFib, but does not take any medication to treat it. He reports he stays at home most of the time and has not been to the doctor in a while. Patient denies any recent fevers, chest pain, other signs/symptoms of infection. GENERAL: Ill-appearing, poorly-nourished, and in no acute distress. HEAD: Normocephalic, atraumatic. CHEST: Clear to auscultation (tight). ?Mild respiratory distress. HEART: Regular rate and rhythm.? NEURO: ?Alert and oriented x3. Patient screened in triage and initial orders placed.? ?Additional care and disposition to be based upon?diagnostic testing and treatment. <Elidia Laura APRN - Last Filed: 06/01/24 17:11> Source: patient <Josafat Jamison MD - Last Filed: 06/01/24 19:30> Mode of arrival: ambulatory <Josafat Jamison MD - Last Filed: 06/01/24 19:30> Limitations: no limitations <Josafat Jamison MD - Last Filed: 06/01/24 19:30> History of Present Illness HPI Narrative: 63-year-old with a history of COPD presents to the ER with a complains of 2 week history of shortness of breath, lack of energy. He states that he is unable to get good breath. He denies having any chest pain. Patient is states that he has not been using any inhalers for COPD. He denies any fever or chills. <Josafat Jamison MD - Last Filed: 06/01/24 19:30> MD elicited complaint: shortness of breath <Josafat Jamison MD - Last Filed: 06/01/24 19:30> Pertinent past history: COPD <Josafat Jamison MD - Last Filed: 06/01/24 19:30> Timing: intermittent <Josafat Jamison MD - Last Filed: 06/01/24 19:30> Severity: moderate <Josafat Jamison MD - Last Filed: 06/01/24 19:30> Exacerbating factors: exertion <Josafat Jamison MD - Last Filed: 06/01/24 19:30> Relieving factors: nothing <Josafat Jamison MD - Last Filed: 06/01/24 19:30> Known history of: COPD <Josafat Jamison MD - Last Filed: 06/01/24 19:30> Treatment prior to arrival: none <Josafat Jamison MD - Last Filed: 06/01/24 19:30> Related Data Allergies/Adverse Reactions: Allergies Allergy/AdvReac Type Severity Reaction Status Date / Time amoxicillin Allergy Severe Swelling Verified 06/01/24 16:29 of Lip/Tongue/Throat Iodinated Contrast Media Allergy Swelling Verified 06/01/24 16:29 of Lip/Tongue/Throat <Elidia Laura APRN - Last Filed: 06/01/24 17:11> Review of Systems Review of Systems: All systems reviewed & are unremarkable except as noted in HPI and below <Josafat Jamison MD - Last Filed: 06/01/24 19:30> Constitutional: Constitutional: Reports no additional constitutional complaints <Josafat Jamison MD - Last Filed: 06/01/24 19:30> Eyes: Eyes: Reports no additional eye complaints <Josafat Jamison MD - Last Filed: 06/01/24 19:30> ENT: Reports system reviewed and no additional complaints, except as documented <Josafat Jamison MD - Last Filed: 06/01/24 19:30> Cardiovascular: Cardiovascular: Reports no additional cardiovascular complaints <Josafat Jamison MD - Last Filed: 06/01/24 19:30> Respiratory: Respiratory: Reports as per HPI <Josafat Jamison MD - Last Filed: 06/01/24 19:30> Musculoskeletal: Musculoskeletal: Reports no additional musculoskeletal complaints <Josafat Jamison MD - Last Filed: 06/01/24 19:30> Neurologic: Reports system reviewed and no additional complaints, except as documented <Josafat Jamison MD - Last Filed: 06/01/24 19:30> PMFSH Past Medical History Medical History: Medical History Tobacco abuse <Elidia Laura APRN - Last Filed: 06/01/24 17:11> Family History Family History: Family History Father Cerebrovascular accident Acute myocardial infarction Mother Diabetes mellitus Hypertension Congestive heart failure History of blood clots Cerebrovascular accident Other Acute myocardial infarction Afib <Elidia Laura APRN - Last Filed: 06/01/24 17:11> Social History Social History: Social History Social History: Surrogate medical decision maker: Hannah Chauhan, mother. Code status: Full code. Smoking packs per day: 1 Smoking cigarettes per day: 20.0 Years smoked: 50 Smoking pack-years: 50.00 Smoking status: Current every day smoker Tobacco type: cigarettes Alcohol intake: never Substance use: never Do You Feel Safe in your Home?: Yes Lack of Transportation: No Lack of Food: Never True Current Housing: I Have Housing Concerned About Future Housing: YES Difficulty Paying Gas/Electric Bills: YES Difficulty Paying for Meds: No Currently Unemployed: No Education: Grade School Difficulty w/ Childcare or Family Care: No Spiritual care concerns: No <Elidia Laura APRN - Last Filed: 06/01/24 17:11> Exam Narrative: GENERAL: Well-appearing, well-nourished, and in no acute distress. HEAD: Normocephalic, atraumatic. EYES: PERRLA and EOMI. ENT: Nares clear, no rhinorrhea or epistaxis. Mucous membranes moist. NECK: Supple. CHEST: Clear to auscultation. No respiratory distress. HEART: Regular rate and rhythm. No murmur heard. Normal peripheral pulses. ABDOMEN: Soft, nontender, nondistended, normal active bowel sounds. EXTREMITIES: Normal range of motion. No edema. SKIN: Warm, dry, no rash. NEURO: No focal deficits. Alert and oriented x3. PSYCH: Normal mood and affect. <Josafat Jamison MD - Last Filed: 06/01/24 19:30> Course Course Emergency Course: Patient comfortably resting his SpO2 on room air is 98% I did inform him about his lab work and chest x-ray findings. Will admit him to the hospital for V/Q scan in the morning as is D-dimer is 3.86. Discussed with the hospitalist accepted the patient <Josafat Jamison MD - Last Filed: 06/01/24 19:30> Vital Signs Vital signs: Vital Signs Temperature 36.6 C 06/01/24 16:46 Pulse Rate 81 06/01/24 16:46 Respiratory Rate 20 06/01/24 16:46 Blood Pressure 131/82 06/01/24 16:46 Pulse Oximetry 97 06/01/24 16:46 Oxygen Delivery Room Air 06/01/24 16:46 Temperature 36.6 C 06/01/24 16:46 Pulse Rate 71 06/01/24 18:35 Respiratory Rate 20 06/01/24 18:35 Blood Pressure 131/82 06/01/24 16:46 Pulse Oximetry 97 06/01/24 16:46 Oxygen Delivery Room Air 06/01/24 16:46 <Elidia Laura, EDY - Last Filed: 06/01/24 17:11> Vital Signs Temperature 36.6 C 06/01/24 16:46 Pulse Rate 81 06/01/24 16:46 Respiratory Rate 20 06/01/24 16:46 Blood Pressure 131/82 06/01/24 16:46 Pulse Oximetry 97 06/01/24 16:46 Oxygen Delivery Room Air 06/01/24 16:46 Temperature 36.6 C 06/01/24 16:46 Pulse Rate 71 06/01/24 18:35 Respiratory Rate 20 06/01/24 18:35 Blood Pressure 131/82 06/01/24 16:46 Pulse Oximetry 97 06/01/24 16:46 Oxygen Delivery Room Air 06/01/24 16:46 <Josafat Jamison MD - Last Filed: 06/01/24 19:30> MDM - SOB/Dyspnea Differential Diagnosis Differential diagnosis: Likely acute exacerbation of chronic obstructive airways disease, community acquired pneumonia and pulmonary embolism <Josafat Jamison MD - Last Filed: 06/01/24 19:30> Medical Records Attestation: I reviewed the patient's medical records. <Josafat Jamison MD - Last Filed: 06/01/24 19:30> Lab Data Attestation: I reviewed the patient's lab results. <Josafat Jamison MD - Last Filed: 06/01/24 19:30> Result diagrams: 06/01/24 17:19 06/01/24 17:19 <Elidia Laura APRN - Last Filed: 06/01/24 17:11> Labs: Lab Results 06/01/24 06/01/24 Range/Units 17:19 18:02 WBC 5.6 (4.5-10.0) K/mm3 RBC 4.49 L (4.6-6.20) M/mm3 Hgb 14.4 (14.0-18.0) g/dL Hct 41.1 L (42.0-52.0) % MCV 91.5 (80-100) fl MCH 32.1 (26-34) pg MCHC 35.0 (32-36) g/dl RDW 12.6 (11.5-14.5) % Plt Count 253 (150-375) k/mm3 MPV 10.3 (7.4-10.4) fl Immature Gran % (Auto) 0.5 (0-0.5) % Neut % (Auto) 70.3 (45.5-73.1) % Lymph % (Auto) 21.7 (18.3-44.2) % [place] % (Auto) 6.9 (2.6-8.5) % Eos % (Auto) 0.4 (0-4.4) % Baso % (Auto) 0.2 (0.2-1.2) % Lymph # (Auto) 1.22 (0.9-3.2) K/mm3 [place] # (Auto) 0.4 (0.1-0.6) K/mm3 Eos # (Auto) 0.0 (0-0.3) K/mm3 Baso # (Auto) 0.0 (0.0-0.1) K/mm3 Abs Immat Gran (auto) 0.03 (0.00-0.031) K/mm3 Absolute Neuts (auto) 4.0 (1.3-6.7) K/mm3 Absolute Nucleated RBC 0.000 (0.0-0.012) K/mm3 Nucleated RBC % 0.0 (0.0-0.2) % PT 14.2 (11.1-14.7) Seconds INR 1.1 APTT 34.2 (22.3-36.8) Seconds D-Dimer 3.86 H (<0.48) ug/mL Sodium 134 L (137-145) mmol/L Potassium 3.7 (3.4-5.0) mmol/L Chloride 103 (98-107) mmol/L Carbon Dioxide 23 (22-30) mmol/L Anion Gap 8 (4-12) mmol/L BUN 12 D (9-20) mg/dL Creatinine 0.63 L (0.7-1.3) mg/dL Estim Creat Clear Calc 108 ml/min Estimated GFR > 60 (59 - ) Glucose 130 H (65-110) mg/dL Calcium 8.7 (8.4-10.2) mg/dL Total Bilirubin 1.0 (0.2-1.3) mg/dL AST 27 (17-59) U/L ALT 19 (6-50) U/L Alkaline Phosphatase 64 (38-126) U/L Troponin I < 0.012 (0.000-0.034) ng/mL NT-Pro-B Natriuret Pep 187 H (19.9-100) pg/mL Total Protein 7.0 (6.3-8.2) g/dL Albumin 3.8 (3.5-5.1) g/dL Urine Color Dark yellow (Yellow) Urine Appearance Clear (Clear) Urine pH 6.0 (5.0-9.0) Ur Specific [place] 1.017 (1.001-1.035) Urine Protein Trace (Negative) mg/dL Urine Glucose (UA) Negative (Negative) mg/dL Urine Ketones Negative (Negative) mg/dL Ur Blood (Man) Negative (Negative) Urine Nitrate Negative (Negative) Urine Bilirubin 1+ H (Negative) Urine Urobilinogen 2.0 H (<2.0) mg/dL Leukocyte Esterase Rfl Negative (Negative) LADI/UL Urine RBC 0-2 (0-2) /hpf Urine WBC 0-5 (0-3) /hpf Ur Squamous Epith Cells None seen (Few) /hpf Urine Bacteria None seen /hpf Urine Casts 0-2 <Elidia Laura, GARAGE SUPERVISOR - Last Filed: 06/01/24 17:11> Lab Results 06/01/24 06/01/24 Range/Units 17:19 18:02 WBC 5.6 (4.5-10.0) K/mm3 RBC 4.49 L (4.6-6.20) M/mm3 Hgb 14.4 (14.0-18.0) g/dL Hct 41.1 L (42.0-52.0) % MCV 91.5 (80-100) fl MCH 32.1 (26-34) pg MCHC 35.0 (32-36) g/dl RDW 12.6 (11.5-14.5) % Plt Count 253 (150-375) k/mm3 MPV 10.3 (7.4-10.4) fl Immature Gran % (Auto) 0.5 (0-0.5) % Neut % (Auto) 70.3 (45.5-73.1) % Lymph % (Auto) 21.7 (18.3-44.2) % [place] % (Auto) 6.9 (2.6-8.5) % Eos % (Auto) 0.4 (0-4.4) % Baso % (Auto) 0.2 (0.2-1.2) % Lymph # (Auto) 1.22 (0.9-3.2) K/mm3 [place] # (Auto) 0.4 (0.1-0.6) K/mm3 Eos # (Auto) 0.0 (0-0.3) K/mm3 Baso # (Auto) 0.0 (0.0-0.1) K/mm3 Abs Immat Gran (auto) 0.03 (0.00-0.031) K/mm3 Absolute Neuts (auto) 4.0 (1.3-6.7) K/mm3 Absolute Nucleated RBC 0.000 (0.0-0.012) K/mm3 Nucleated RBC % 0.0 (0.0-0.2) % PT 14.2 (11.1-14.7) Seconds INR 1.1 APTT 34.2 (22.3-36.8) Seconds D-Dimer 3.86 H (<0.48) ug/mL Sodium 134 L (137-145) mmol/L Potassium 3.7 (3.4-5.0) mmol/L Chloride 103 (98-107) mmol/L Carbon Dioxide 23 (22-30) mmol/L Anion Gap 8 (4-12) mmol/L BUN 12 D (9-20) mg/dL Creatinine 0.63 L (0.7-1.3) mg/dL Estim Creat Clear Calc 108 ml/min Estimated GFR > 60 (59 - ) Glucose 130 H (65-110) mg/dL Calcium 8.7 (8.4-10.2) mg/dL Total Bilirubin 1.0 (0.2-1.3) mg/dL AST 27 (17-59) U/L ALT 19 (6-50) U/L Alkaline Phosphatase 64 (38-126) U/L Troponin I < 0.012 (0.000-0.034) ng/mL NT-Pro-B Natriuret Pep 187 H (19.9-100) pg/mL Total Protein 7.0 (6.3-8.2) g/dL Albumin 3.8 (3.5-5.1) g/dL Urine Color Dark yellow (Yellow) Urine Appearance Clear (Clear) Urine pH 6.0 (5.0-9.0) Ur Specific [place] 1.017 (1.001-1.035) Urine Protein Trace (Negative) mg/dL Urine Glucose (UA) Negative (Negative) mg/dL Urine Ketones Negative (Negative) mg/dL Ur Blood (Man) Negative (Negative) Urine Nitrate Negative (Negative) Urine Bilirubin 1+ H (Negative) Urine Urobilinogen 2.0 H (<2.0) mg/dL Leukocyte Esterase Rfl Negative (Negative) LADI/UL Urine RBC 0-2 (0-2) /hpf Urine WBC 0-5 (0-3) /hpf Ur Squamous Epith Cells None seen (Few) /hpf Urine Bacteria None seen /hpf Urine Casts 0-2 <Josafat Jamison MD - Last Filed: 06/01/24 19:30> Imaging Data Radiologist's impression: ITS Impressions Chest X-Ray 06/01/24 18:06 IMPRESSION: 1: NO ACUTE CARDIOPULMONARY DISEASE. <Josafat Jamison MD - Last Filed: 06/01/24 19:30> ECG Data EKG #1: ECG completion date: 06/01/24 <Josafat Jamison MD - Last Filed: 06/01/24 19:30> ECG completion time: 17:25 <Josafat Jamison MD - Last Filed: 06/01/24 19:30> EKG Interpretation: normal rate (77), sinus rhythm, no ectopy, normal QT and NL axis <Josafat Jamison MD - Last Filed: 06/01/24 19:30> Discharge Plan Discharge Clinical Impression: COPD exacerbation, Elevated d-dimer <Elidia Laura APRN - Last Filed: 06/01/24 17:11> Patient Disposition: Still a Patient <Elidia Laura APRN - Last Filed: 06/01/24 17:11> Condition: Stable <Elidia Laura APRN - Last Filed: 06/01/24 17:11> Instructions: Antibiotic Form <Elidia Laura APRN - Last Filed: 06/01/24 17:11> Patient Language: Telugu <Elidia Laura APRN - Last Filed: 06/01/24 17:11> Prescriptions: No Action mirtazapine [Remeron] 15 mg Tablet 30 mg PO HS Qty: 60 0RF sertraline [Zoloft] 50 mg Tablet 100 mg PO QAM Qty: 60 0RF metoprolol succinate 25 mg tablet extended release 24 hr 25 mg PO DAILY Qty: 30 1RF <Elidia Laura APRN - Last Filed: 06/01/24 17:11> Follow-up/Referrals: UNKNOWN,DOCTOR [Primary Care Provider] - <Elidia Laura APRN - Last Filed: 06/01/24 17:11> Time of Disposition: 19:30 <Elidia Laura APRN - Last Filed: 06/01/24 17:11> 19:30 <Josafat Jamison MD - Last Filed: 06/01/24 19:30>
[2024-06-01 17:27] LABS: Basophils Percent Auto 0.2 % (0.2-1.2); Eosinophils Percent Auto 0.4 % (0-4.4); Hematocrit 41.1 % (42.0-52.0); Hemoglobin 14.4 g/dL (14.0-18.0); Immature Granulocyte Absolute 0.03 K/mm3 (0.00-0.031); Immature Granulocyte Percent A 0.5 % (0-0.5); Lymphocytes Absolute Auto 1.22 K/mm3 (0.9-3.2); Lymphocytes Percent Auto 21.7 % (18.3-44.2); Mean Corpuscular Hemoglobin 32.1 pg (26-34); Mean Corpuscular Volume 91.5 fl (80-100); Mean Platelet Volume 10.3 fl (7.4-10.4); Monocytes Absolute Auto 0.4 K/mm3 (0.1-0.6); Monocytes Percent Auto 6.9 % (2.6-8.5); Neutrophils Percent Auto 70.3 % (45.5-73.1); Platelet Count Result 253 k/mm3 (150-375); Red Blood Count 4.49 M/mm3 (4.6-6.20); Red Cell Distribution Width 12.6 % (11.5-14.5); White Blood Count 5.6 K/mm3 (4.5-10.0)
[2024-06-01 17:37] LABS: Alanine Aminotransferase 19 U/L (6-50); Albumin Level 3.8 g/dL (3.5-5.1); Alkaline Phosphatase 64 U/L (38-126); Anion Gap 8 mmol/L (4-12); Aspartate Amino Transferase 27 U/L (17-59); Blood Urea Nitrogen 12 mg/dL (9-20); Calcium 8.7 mg/dL (8.4-10.2); Carbon Dioxide 23 mmol/L (22-30); Chloride 103 mmol/L (98-107); Estimated CRCL calculation 108 ml/min; Estimated Glomerular Filt Rate > 60; Glucose 130 mg/dL (65-110); Potassium 3.7 mmol/L (3.4-5.0); Sodium 134 mmol/L (137-145)
[2024-06-01 17:40] LABS: INR 1.1; Prothrombin Time 14.2 Seconds (11.1-14.7)
[2024-06-01 17:41] LABS: Partial Thromboplastin Time 34.2 Seconds (22.3-36.8)
[2024-06-01 17:46] LABS: D Dimer 3.86 ug/mL (<0.48)
[2024-06-01 17:49] LABS: NT Pro B Type Natriuretic Pept 187 pg/mL (19.9-100); Troponin I < 0.012 ng/mL (0.000-0.034)
[2024-06-01 18:15] LABS: Add Urine Microscopic? YES; Appearance Urine Clear (Clear); Bacteria Urine None Seen /hpf; Bilirubin Urine 1+ (Negative); Blood Urine Negative (Negative); Color Urine Dark Yellow (Yellow); Glucose Urine UA Negative (Negative); Ketones Urine Negative (Negative); Leukocyte Esterase Ur Negative LEU/UL (Negative); Nitrate Urine Negative (Negative); Non Pathogenic Casts 0-2; Protein Urine Trace mg/dL (Negative); RBC Urine 0-2 /hpf (0-2); Specific Grav Ur 1.017 (1.001-1.035); Squamous Epithelial Cell Urine None Seen /hpf (Few); WBC Urine 0-5 /hpf (0-3)
[2024-06-01] MEDS: IPRATROPIUM 0.5 MG/ALBUTEROL SULFATE 2.5 MG AMPUL.NEB 3 ML INHALATION (18:25)
[2024-06-01] MEDS: SODIUM CHLORIDE 0.9% IV 1,000 ML 999 ML IV CONT (19:24)
[2024-06-01] MEDS: ENOXAPARIN 80 MG/0.8 ML SYRINGE SUB-Q (20:45)
[2024-06-01] MEDS: SODIUM CHLORIDE 0.9% IV 1,000 ML 125 ML IV CONT (20:47)
--- NOTE | 2024-06-01 20:48 | P.HP_ITS ---
H&P: HPI History of Present Illness Date/Time: 06/01/24 20:48 Chief Complaint: sob Narrative: This is a 63-year-old male with past medical history significant for tobacco dependence, patient smokes 1 pack of cigarettes daily, presents to the emergency room with worsening shortness of breath, poor per orally intake, nighttime shortness of breath, patient has had some weight loss as well of roughly 20 lb, according to patient he had been placed on breathing treatments by his primary care physician however he felt that he was not benefitting from it and stopped taking them. Preliminary workup was significant for an elevated D-dimer however patient has contrast allergy has been placed on Lovenox awaiting V/Q scan in the morning. Patient has been placed in observation for further evaluation management and treatment. EXAMINATION: XR chest 1V 06/01/2024 18:01 INDICATION: Shortness of breath PROCEDURE: PA view of the chest COMPARISON: 02/13/2024 FINDINGS: The lungs are clear. The cardiomediastinal silhouette is within normal limits. There are no pleural effusions. There is no pneumothorax suspected. The lungs are hyperinflated which is consistent with, but not diagnostic of chronic obstructive pulmonary disease. IMPRESSION: 1: NO ACUTE CARDIOPULMONARY DISEASE. Review of Systems Review of Systems: Shortness of breath, weight loss, poor per orally intake. [facility] Past Medical History Medical History Tobacco abuse Family History Family History Father Cerebrovascular accident Acute myocardial infarction Mother Diabetes mellitus Hypertension Congestive heart failure History of blood clots Cerebrovascular accident Other Acute myocardial infarction Afib Social History Social History Social History: Surrogate medical decision maker: Hannah Chauhan, mother. Code status: Full code. Smoking packs per day: 1 Smoking cigarettes per day: 20.0 Years smoked: 50 Smoking pack-years: 50.00 Smoking status: Current every day smoker Tobacco type: cigarettes Alcohol intake: never Substance use: never Substance use type: does not use Do You Feel Safe in your Home?: Yes Lack of Transportation: No Lack of Food: Never True Current Housing: I Have Housing Concerned About Future Housing: No Difficulty Paying Gas/Electric Bills: No Difficulty Paying for Meds: No Currently Unemployed: No Education: Grade School Difficulty w/ Childcare or Family Care: No Spiritual care concerns: No Meds Home Medications and Allergies Home Medications ?Medication ?Instructions ?Recorded ?Confirmed ?Type metoprolol succinate 25 mg 25 mg PO DAILY #30 tabs 02/14/24 06/01/24 Rx tablet,extended release 24 hr hydroxyzine HCl 50 mg tablet 50 mg PO BID PRN anxiety 06/01/24 06/01/24 History mirtazapine 45 mg tablet 45 mg PO HS PRN sleep 06/01/24 06/01/24 History sertraline 100 mg tablet 200 mg PO DAILY 06/01/24 06/01/24 History Allergies Allergy/AdvReac Type Severity Reaction Status Date / Time amoxicillin Allergy Severe Swelling Verified 06/01/24 16:29 of Lip/Tongue/Throat Iodinated Contrast Media Allergy Swelling Verified 06/01/24 16:29 of Lip/Tongue/Throat Vital Signs Vital Signs - 24 hr 06/01/24 16:46 06/01/24 18:25 06/01/24 18:35 Temperature 97.9 F Pulse Rate 81 70 71 Respiratory Rate 20 20 20 Blood Pressure 131/82 Pulse Oximetry 97 Oxygen Delivery Room Air 06/01/24 19:10 06/01/24 19:45 Temperature Pulse Rate 73 Respiratory Rate 20 Blood Pressure 111/92 H Pulse Oximetry 95 95 Oxygen Delivery Room Air Exam Narrative: Laying in a stretcher Const: General: comfortable, no acute distress, well developed, alert, awake and thin Nutritional Appearance: thin Orientation/consciousness: patient oriented x3 HENMT: Head: normal to inspection, normocephalic and atraumatic Ears: hearing grossly normal bilaterally Face/Nose/Sinus: normal facial exam Face and sinus: normal facial exam Eyes: General: appearance normal, both eyes and all related structures Pupils: Equal, round and reactive pupils present EOM: EOMs intact bilaterally Neck: Neck: full ROM, no lymphadenopathy and no JVD Thyroid: thyroid normal Lymphatic: no lymphadenopathy noted Resp: Effort & Inspection: normal respiratory effort and able to speak in complete sentences Auscultation: clear to auscultation bilaterally, wheezes and diminished lung sounds Cardio: Jugular venous distension: no JVD Rate: regular rate Rhythm: regular rhythm Heart sounds: S1 normal heart sound present and S2 normal heart sound present GI: GI Palp: Yes Soft to palpation and Yes No hepatosplenomegaly present : General: Yes deferred Skin: Rashes: no rashes Wounds: no wounds Neuro: General: patient oriented x3 and CN's II-XI intact bilaterally Cranial nerves: Yes CN's II-XII intact bilaterally and Yes Equal, round and reactive pupils present Cognition (Neuro): normal cognition Speech: normal speech Gait exam (Neuro): Normal gait present Motor exam (neuro): 5/5 motor strength present throughout Extrem: General: normal to inspection, full ROM, no joint enlargement and no pedal edema H&P: Results Labs Labs: Short CBC 06/01/24 Range/Units 17:19 WBC 5.6 (4.5-10.0) K/mm3 Hgb 14.4 (14.0-18.0) g/dL Hct 41.1 L (42.0-52.0) % Plt Count 253 (150-375) k/mm3 BMP 06/01/24 17:19 Sodium 134 L Potassium 3.7 Chloride 103 Carbon Dioxide 23 BUN 12 D Creatinine 0.63 L Glucose 130 H Calcium 8.7 Cardiac Enzymes 06/01/24 Range/Units 17:19 Troponin I < 0.012 (0.000-0.034) ng/mL Liver Function 06/01/24 Range/Units 17:19 Total Bilirubin 1.0 (0.2-1.3) mg/dL AST 27 (17-59) U/L ALT 19 (6-50) U/L Alkaline Phosphatase 64 (38-126) U/L Albumin 3.8 (3.5-5.1) g/dL Urine 06/01/24 Range/Units 18:02 Urine Color Dark yellow (Yellow) Urine Appearance Clear (Clear) Urine pH 6.0 (5.0-9.0) Ur Specific [place] 1.017 (1.001-1.035) Urine Protein Trace (Negative) mg/dL Urine Glucose (UA) Negative (Negative) mg/dL Assessment and Plan Assessment and plan (1) COPD exacerbation: Code(s): J44.1 - Chronic obstructive pulmonary disease with (acute) exacerbation Status: Acute Assessment and Plan: Admit to regular medical floor Breathing treatments Patient started on levofloxacin (2) Tobacco dependence: Code(s): F17.200 - Nicotine dependence, unspecified, uncomplicated Status: Acute Assessment and Plan: Nicotine patch as needed Hospitalist MIPS Advance Care Plan I have confirmed that the patient's Advanced Care Plan is present, code status is documented, or surrogate decision maker is listed in patient medical record.: Yes Medication Reconciliation I have utilized all available resources to obtain, update and review the patients current medications (includes all prescriptions, OTC, herbals, cannabis, and nutritional supplements).: Yes
[2024-06-01] MEDS: IPRATROPIUM BR 0.02% INH SOLN 0.5 MG/2.5 ML VIAL INHALATION (21:30)
[2024-06-01] MEDS: ALBUTEROL SULFATE NEB 2.5 MG/3 ML INH INHALATION (21:30)
--- NOTE | 2024-06-01 22:25 | ADMGEN ---
This patient, Terrance Chauhan, was admitted to Medical Room 348-01. Patient/family oriented to hospital policies and general routines including ID bracelet, bed and alarms, visiting hours, pain management, procedures, bathroom and other care routines, personal items, smoking policy, room service/diet, and visiting hours. Information on how to activate the Rapid Response Team has been discussed. Patient/Family are encouraged to report perceived risks to care and to ask questions if they do not understand what they are told or what they should do.
[2024-06-02] VITALS (17 sets, daily range): BP systolic 121–132; BP diastolic 59–69; PULSE 51–90; RESP 16–18; TEMP 36.7–36.9; O2SAT 95–96; BMI 22.8
[2024-06-02] MEDS: ALBUTEROL SULFATE NEB 2.5 MG/3 ML INH INHALATION (01:07)
[2024-06-02] MEDS: IPRATROPIUM BR 0.02% INH SOLN 0.5 MG/2.5 ML VIAL INHALATION (01:07)
[2024-06-02] MEDS: levoFLOXacin 500 MG/D5W 100 ML 500 MG/100 ML BAG 100 MG IVPB (04:10)
[2024-06-02] MEDS: SODIUM CHLORIDE 0.9% IV 1,000 ML 125 ML IV CONT ×2 (04:15→16:26)
[2024-06-02] MEDS: IPRATROPIUM 0.5 MG/ALBUTEROL SULFATE 2.5 MG AMPUL.NEB 3 ML 2.5 ML INHALATION ×3 (08:45→20:19)
[2024-06-02] MEDS: ENOXAPARIN 80 MG/0.8 ML SYRINGE SUB-Q (09:11)
--- NOTE | 2024-06-02 14:02 | P.PNIM_ITS ---
Progress Note: A&P Assessment and Plan (1) Anxiety: Code(s): F41.9 - Anxiety disorder, unspecified Status: Acute (2) Chest pain: Code(s): R07.9 - Chest pain, unspecified Status: Acute (3) Atrial fibrillation with rapid ventricular response: Code(s): I48.91 - Unspecified atrial fibrillation Status: Acute (4) Elevated d-dimer: Code(s): R79.89 - Other specified abnormal findings of blood chemistry Status: Acute (5) Suspected chronic obstructive pulmonary disease based on initial evaluation: Code(s): J44.9 - Chronic obstructive pulmonary disease, unspecified Status: Acute (6) COPD exacerbation: Code(s): J44.1 - Chronic obstructive pulmonary disease with (acute) exacerbation Status: Acute (7) Tobacco abuse: Code(s): Z72.0 - Tobacco use Status: Acute Plan This is a 63-year-old male with past medical history significant for tobacco dependence, patient smokes 1 pack of cigarettes daily, presents to the emergency room with worsening shortness of breath, poor per orally intake, nighttime shortness of breath, patient has had some weight loss as well of roughly 20 lb, according to patient he had been placed on breathing treatments by his primary care physician however he felt that he was not benefitting from it and stopped taking them. Preliminary workup was significant for an elevated D-dimer however patient has contrast allergy has been placed on Lovenox awaiting V/Q scan in the morning. Patient has been placed in observation for further evaluation management and treatment. COPD exacerbation: Code(s): J44.1 - Chronic obstructive pulmonary disease with (acute) exacerbation Status: Acute Assessment and Plan: Admit to regular medical floor Breathing treatments Patient started on levofloxacin V/Q scan: Low probability for pulmonary embolism. Continue DuoNeb scheduled, albuterol nebulizer p.r.n., Switch from therapeutic dose of Lovenox to 40 mg subQ for DVT prophylaxis Pending respiratory pathogen test Acute bacterial bronchitis Patient has been having worsening cough with phlegm. Patient started on levofloxacin Tobacco dependence: Code(s): F17.200 - Nicotine dependence, unspecified, uncomplicated Status: Acute Assessment and Plan: Nicotine patch as needed Subjective Date/time seen: 06/02/24 14:02 Interval history: I saw and examined patient today, patient is afebrile, blood pressure stable, pulse ox 96 on room air. Patient still has cough, shortness of breath Exam Narrative: GENERAL: Pleasant, in no acute distress. Well-nourished. - EYES: EOMI. Anicteric. - HENT: Moist mucous membranes. - LUNGS: Clear to auscultation bilateral ly, no wheezing, rhonchi, or rales. - CARDIOVASCULAR: Regular rate and rhyth m. No murmur. No JVD. - ABDOMEN: Soft, non-tender and non-dist ended. No palpable masses. - EXTREMITIES: No edema. Peripheral puls es 2+. Non-tender. - NEUROLOGIC: No focal neurological defi cits. CN II-XII grossly intact. - PSYCHIATRIC: Awake, Alert and oriented x 3. Appropriate mood and affect. - SKIN: No rashes or lesions. Warm. - LYMPH: No cervical lymphadenopathy. Objective Data Vital Signs Vital Signs: Vital Signs - 24 hr 06/01/24 16:46 06/01/24 18:25 06/01/24 18:35 Temperature 97.9 F Pulse Rate 81 70 71 Respiratory Rate 20 20 20 Blood Pressure 131/82 Pulse Oximetry 97 Oxygen Delivery Room Air Fraction of Inspired Oxygen 06/01/24 19:10 06/01/24 19:45 06/01/24 21:31 Temperature Pulse Rate 73 70 Respiratory Rate 20 15 Blood Pressure 111/92 H Pulse Oximetry 95 95 Oxygen Delivery Room Air Fraction of Inspired Oxygen 06/01/24 21:37 06/01/24 22:30 06/02/24 00:00 Temperature 98.1 F Pulse Rate 78 81 76 Respiratory Rate 12 16 Blood Pressure 124/87 Pulse Oximetry 99 Oxygen Delivery Fraction of Inspired Oxygen 06/02/24 01:07 06/02/24 01:07 06/02/24 01:15 Temperature Pulse Rate 76 73 Respiratory Rate 16 16 Blood Pressure Pulse Oximetry 96 Oxygen Delivery Autopap Fraction of Inspired Oxygen 21 06/02/24 04:00 06/02/24 05:13 06/02/24 08:45 Temperature 98.4 F Pulse Rate 61 73 Respiratory Rate 16 Blood Pressure 121/61 Pulse Oximetry 95 96 Oxygen Delivery Room Air Fraction of Inspired Oxygen 06/02/24 08:45 06/02/24 08:51 06/02/24 09:11 Temperature Pulse Rate 55 L 60 Respiratory Rate 16 16 Blood Pressure Pulse Oximetry Oxygen Delivery Room Air Fraction of Inspired Oxygen Intake/Output Intake/Output: Intake & Output 05/30/24 05/31/24 06/01/24 06/02/24 23:59 23:59 23:59 23:59 Intake Total 1000 1033.3 Balance 1000 1033.3 Meds/Results Medications: Active Medications Generic Name Dose Route Start Last Admin Trade Name Freq PRN Reason Stop Dose Admin Acetaminophen 650 mg 06/01/24 19:39 Acetaminophen 325 Mg Tablet PO Q4H PRN Mild Pain (1-3) or Fever Al Hydrox/Mg Hydrox/Simethicone 30 ml 06/02/24 00:43 Mag Hydrox/Al Hydrox/Simeth 30 Ml Udc PO Q6H PRN Indigestion Albuterol/Ipratropium 2.5 ml 06/02/24 08:00 06/02/24 08:45 Ipratropium 0.5 Mg/Albuterol Sulfate 2.5 Mg Ampul.Neb 3 Ml INHALATION 2.5 ml Q6HRT KATTY Administration Enoxaparin Sodium 80 mg 06/02/24 09:00 06/02/24 09:11 Enoxaparin 80 Mg/0.8 Ml Syringe SUB-Q 80 mg Q12H KATTY Administration Hydroxyzine HCl 50 mg 06/02/24 00:40 Hydroxyzine Hcl 25 Mg Tablet PO BID PRN anxiety Sodium Chloride 1,000 mls @ 125 mls/hr 06/01/24 19:40 06/02/24 04:15 Normal Saline Iv IV CONT 125 mls/hr .Q8H AKTTY Administration Levofloxacin/Dextrose 500 mg in 100 mls @ 100 mls/hr 06/03/24 04:00 Levaquin 500 Mg/D5w 100 Ml IVPB Q24H KATTY Metoprolol Succinate 25 mg 06/02/24 09:00 06/02/24 09:12 Metoprolol Succinate Ext Rel 25 Mg Tabcr PO Not Given DAILY [facility] Mirtazapine 45 mg 06/02/24 00:40 Mirtazapine 15 Mg Tablet PO HS PRN sleep Ondansetron HCl 4 mg 06/02/24 00:43 Ondansetron Inj 4 Mg/2 Ml Vial IV PUSH Q4H PRN Nausea And Vomiting Polyethylene Glycol 17 gm 06/02/24 00:43 Polyethylene Glycol 3350 17 Gm Powd.Pack PO QAM PRN Constipation Sertraline HCl 200 mg 06/02/24 09:00 06/02/24 09:13 Sertraline Hcl 50 Mg Tablet PO Not Given DAILY [facility] Radiology Results: ITS Impressions Chest X-Ray 06/01/24 18:06 IMPRESSION: 1: NO ACUTE CARDIOPULMONARY DISEASE. Pulmonary Perfusion Imaging 06/02/24 13:07 IMPRESSION: 1. Low probability for pulmonary embolism. Labs Labs: Laboratory Results - last 24 hr 06/01/24 06/01/24 17:19 18:02 WBC 5.6 RBC 4.49 L Hgb 14.4 Hct 41.1 L MCV 91.5 MCH 32.1 MCHC 35.0 RDW 12.6 Plt Count 253 MPV 10.3 Immature Gran % (Auto) 0.5 Neut % (Auto) 70.3 Lymph % (Auto) 21.7 [place] % (Auto) 6.9 Eos % (Auto) 0.4 Baso % (Auto) 0.2 Lymph # (Auto) 1.22 [place] # (Auto) 0.4 Eos # (Auto) 0.0 Baso # (Auto) 0.0 Abs Immat Gran (auto) 0.03 Absolute Neuts (auto) 4.0 Absolute Nucleated RBC 0.000 Nucleated RBC % 0.0 PT 14.2 INR 1.1 APTT 34.2 D-Dimer 3.86 H Sodium 134 L Potassium 3.7 Chloride 103 Carbon Dioxide 23 Anion Gap 8 BUN 12 D Creatinine 0.63 L Estim Creat Clear Calc 108 Estimated GFR > 60 Glucose 130 H Calcium 8.7 Total Bilirubin 1.0 AST 27 ALT 19 Alkaline Phosphatase 64 Troponin I < 0.012 NT-Pro-B Natriuret Pep 187 H Total Protein 7.0 Albumin 3.8 Urine Color Dark yellow Urine Appearance Clear Urine pH 6.0 Ur Specific [place] 1.017 Urine Protein Trace Urine Glucose (UA) Negative Urine Ketones Negative Ur Blood (Man) Negative Urine Nitrate Negative Urine Bilirubin 1+ H Urine Urobilinogen 2.0 H Leukocyte Esterase Rfl Negative Urine RBC 0-2 Urine WBC 0-5 Ur Squamous Epith Cells None seen Urine Bacteria None seen Urine Casts 0-2
[2024-06-02 17:53] LABS: Influenza A QL RT-PCR Negative (Negative); Influenza B QL RT-PCR Negative (Negative); RSV RNA, RT-PCR Negative (Negative); SARS-CoV-2 RNA PCR Positive (Negative)
[2024-06-03] VITALS (16 sets, daily range): BP systolic 130–145; BP diastolic 60–74; PULSE 56–80; RESP 16–18; TEMP 36.3–37; O2SAT 93–99
[2024-06-03] MEDS: SODIUM CHLORIDE 0.9% IV 1,000 ML 125 ML IV CONT ×3 (00:02→22:00)
[2024-06-03] MEDS: IPRATROPIUM 0.5 MG/ALBUTEROL SULFATE 2.5 MG AMPUL.NEB 3 ML 2.5 ML INHALATION ×4 (02:11→19:46)
[2024-06-03] MEDS: levoFLOXacin 500 MG/D5W 100 ML 500 MG/100 ML BAG 100 MG IVPB (04:25)
--- NOTE | 2024-06-03 09:42 | PM.IMPN ---
Progress Note: A&P Assessment and Plan (1) Anxiety: Code(s): F41.9 - Anxiety disorder, unspecified Status: Acute (2) Chest pain: Code(s): R07.9 - Chest pain, unspecified Status: Acute (3) Atrial fibrillation with rapid ventricular response: Code(s): I48.91 - Unspecified atrial fibrillation Status: Acute (4) Elevated d-dimer: Code(s): R79.89 - Other specified abnormal findings of blood chemistry Status: Acute (5) Suspected chronic obstructive pulmonary disease based on initial evaluation: Code(s): J44.9 - Chronic obstructive pulmonary disease, unspecified Status: Acute (6) COPD exacerbation: Code(s): J44.1 - Chronic obstructive pulmonary disease with (acute) exacerbation Status: Acute (7) Tobacco abuse: Code(s): Z72.0 - Tobacco use Status: Acute Plan This is a 63-year-old male with past medical history significant for tobacco dependence, patient smokes 1 pack of cigarettes daily, presents to the emergency room with worsening shortness of breath, poor per orally intake, nighttime shortness of breath, patient has had some weight loss as well of roughly 20 lb, according to patient he had been placed on breathing treatments by his primary care physician however he felt that he was not benefitting from it and stopped taking them. Preliminary workup was significant for an elevated D-dimer however patient has contrast allergy has been placed on Lovenox awaiting V/Q scan in the morning. Patient has been placed in observation for further evaluation management and treatment. COPD exacerbation: Code(s): J44.1 - Chronic obstructive pulmonary disease with (acute) exacerbation Status: Acute Assessment and Plan: Admit to regular medical floor Breathing treatments Patient started on levofloxacin V/Q scan: Low probability for pulmonary embolism. Continue DuoNeb scheduled, albuterol nebulizer p.r.n., Switch from therapeutic dose of Lovenox to 40 mg subQ for DVT prophylaxis COVID positive from respiratory pathogen test. has worse cough and sob start remdesivir and Symbicort Acute bacterial bronchitis Patient has been having worsening cough with phlegm. Patient started on levofloxacin Tobacco dependence: Code(s): F17.200 - Nicotine dependence, unspecified, uncomplicated Status: Acute Assessment and Plan: Nicotine patch as needed Subjective Date/time seen: 06/03/24 09:42 Interval history: Patient is afebrile, blood pressure stable, patient is on room air, pulse ox 93-96 patient still has shortness breath is getting worse today, patient also chest tightness bilateral breath with cough. Cough is worse today.. Patient also has scant phlegm. COVID positive, Exam Narrative: GENERAL: Pleasant, in no acute distress. Well-nourished. - EYES: EOMI. Anicteric. - HENT: Moist mucous membranes. - LUNGS: Distant breath sound bilateral, tachypnea scattered received - CARDIOVASCULAR: Regular rate and rhythm. No murmur. No JVD. - ABDOMEN: Soft, non-tender and non-distended. No palpable masses. - EXTREMITIES: No edema. Peripheral pulses 2+. Non-tender. - NEUROLOGIC: No focal neurological deficits. CN II-XII grossly intact. - PSYCHIATRIC: Awake, Alert and oriented x 3. Appropriate mood and affect. - SKIN: No rashes or lesions. Warm. - LYMPH: No cervical lymphadenopathy. Objective Data Vital Signs Vital Signs: Vital Signs - 24 hr 06/02/24 12:00 06/02/24 14:00 06/02/24 15:08 Temperature 98.2 F Pulse Rate 82 63 59 L Respiratory Rate 18 16 Blood Pressure 124/59 L Pulse Oximetry 96 Oxygen Delivery Fraction of Inspired Oxygen 06/02/24 15:15 06/02/24 16:00 06/02/24 20:00 Temperature Pulse Rate 60 90 70 Respiratory Rate 16 Blood Pressure Pulse Oximetry Oxygen Delivery Fraction of Inspired Oxygen 06/02/24 20:18 06/02/24 20:18 06/02/24 20:27 Temperature Pulse Rate 70 74 Respiratory Rate 18 18 Blood Pressure Pulse Oximetry 96 Oxygen Delivery Room Air Fraction of Inspired Oxygen 21 06/02/24 20:30 06/03/24 00:00 06/03/24 02:11 Temperature 98.1 F Pulse Rate 74 66 63 Respiratory Rate 18 18 Blood Pressure 132/69 Pulse Oximetry 96 Oxygen Delivery Fraction of Inspired Oxygen 06/03/24 02:20 06/03/24 04:00 06/03/24 06:00 Temperature 98.4 F Pulse Rate 71 64 68 Respiratory Rate 18 16 Blood Pressure 138/74 Pulse Oximetry 97 Oxygen Delivery Fraction of Inspired Oxygen 06/03/24 08:40 06/03/24 08:45 06/03/24 08:50 Temperature 97.3 F L Pulse Rate 56 L Respiratory Rate 18 Blood Pressure 139/69 Pulse Oximetry 96 93 Oxygen Delivery Room Air Room Air Fraction of Inspired Oxygen 06/03/24 08:50 06/03/24 08:58 Temperature Pulse Rate 68 70 Respiratory Rate 18 18 Blood Pressure Pulse Oximetry Oxygen Delivery Fraction of Inspired Oxygen Intake/Output Intake/Output: Intake & Output 05/31/24 06/01/24 06/02/24 06/03/24 23:59 23:59 23:59 23:59 Intake Total 1000 3268.3 1450 Balance 1000 3268.3 1450 Meds/Results Medications: Active Medications Generic Name Dose Route Start Last Admin Trade Name Freq PRN Reason Stop Dose Admin Acetaminophen 650 mg 06/01/24 19:39 Acetaminophen 325 Mg Tablet PO Q4H PRN Mild Pain (1-3) or Fever Al Hydrox/Mg Hydrox/Simethicone 30 ml 06/02/24 00:43 Mag Hydrox/Al Hydrox/Simeth 30 Ml Udc PO Q6H PRN Indigestion Albuterol/Ipratropium 2.5 ml 06/02/24 08:00 06/03/24 08:50 Ipratropium 0.5 Mg/Albuterol Sulfate 2.5 Mg Ampul.Neb 3 Ml INHALATION 2.5 ml Q6HRT COUNTS INCLUDE 234 BEDS AT THE [facility] Administration Enoxaparin Sodium 40 mg 06/03/24 09:00 06/03/24 08:37 Enoxaparin 40 Mg/0.4 Ml Syringe SUB-Q Not Given DAILY COUNTS INCLUDE 234 BEDS AT THE [facility] Hydroxyzine HCl 50 mg 06/02/24 00:40 Hydroxyzine Hcl 25 Mg Tablet PO BID PRN anxiety Sodium Chloride 1,000 mls @ 125 mls/hr 06/01/24 19:40 06/03/24 07:56 Normal Saline Iv IV CONT Not Given .Q8H COUNTS INCLUDE 234 BEDS AT THE [facility] Levofloxacin/Dextrose 500 mg in 100 mls @ 100 mls/hr 06/03/24 04:00 06/03/24 05:25 Levaquin 500 Mg/D5w 100 Ml IVPB Infused Q24H KATTY Infusion Metoprolol Succinate 25 mg 06/02/24 09:00 06/02/24 09:12 Metoprolol Succinate Ext Rel 25 Mg Tabcr PO Not Given DAILY COUNTS INCLUDE 234 BEDS AT [facility] Mirtazapine 45 mg 06/02/24 00:40 Mirtazapine 15 Mg Tablet PO HS PRN sleep Ondansetron HCl 4 mg 06/02/24 00:43 Ondansetron Inj 4 Mg/2 Ml Vial IV PUSH Q4H PRN Nausea And Vomiting Polyethylene Glycol 17 gm 06/02/24 00:43 Polyethylene Glycol 3350 17 Gm Powd.Pack PO QAM PRN Constipation Radiology Results: ITS Impressions Chest X-Ray 06/01/24 18:06 IMPRESSION: 1: NO ACUTE CARDIOPULMONARY DISEASE. Pulmonary Perfusion Imaging 06/02/24 13:07 IMPRESSION: 1. Low probability for pulmonary embolism. Labs Labs: Laboratory Results - last 24 hr 06/02/24 17:07 Influenza A (RT-PCR) Negative Influenza B (RT-PCR) Negative RSV (RT-PCR) Negative SARS-CoV-2 RNA (RT-PCR) Positive A
[2024-06-03 10:03] LABS: Basophils Percent Auto 0.2 % (0.2-1.2); Eosinophils Percent Auto 0.2 % (0-4.4); Hematocrit 34.8 % (42.0-52.0); Immature Granulocyte Absolute 0.03 K/mm3 (0.00-0.031); Immature Granulocyte Percent A 0.6 % (0-0.5); Lymphocytes Absolute Auto 1.23 K/mm3 (0.9-3.2); Lymphocytes Percent Auto 22.6 % (18.3-44.2); Mean Corpuscular HGB Conc 34.5 g/dl (32-36); Mean Corpuscular Hemoglobin 32.3 pg (26-34); Mean Corpuscular Volume 93.5 fl (80-100); Mean Platelet Volume 9.5 fl (7.4-10.4); Monocytes Absolute Auto 0.4 K/mm3 (0.1-0.6); Monocytes Percent Auto 8.1 % (2.6-8.5); Neutrophils Absolute Auto 3.7 K/mm3 (1.3-6.7); Neutrophils Percent Auto 68.3 % (45.5-73.1); Platelet Count Result 282 k/mm3 (150-375); Red Blood Count 3.72 M/mm3 (4.6-6.20); White Blood Count 5.5 K/mm3 (4.5-10.0)
[2024-06-03 10:22] LABS: Anion Gap 8 mmol/L (4-12); Blood Urea Nitrogen 3 mg/dL (9-20); Calcium 7.9 mg/dL (8.4-10.2); Carbon Dioxide 21 mmol/L (22-30); Chloride 109 mmol/L (98-107); Estimated CRCL calculation 115 ml/min; Estimated Glomerular Filt Rate > 60; Glucose 114 mg/dL (65-110); Potassium 3.1 mmol/L (3.4-5.0); Sodium 138 mmol/L (137-145)
[2024-06-03] MEDS: REMDESIVIR 200 MG/NS 250 ML 200 MG/250 ML BAG 250 MG IVPB (17:13)
[2024-06-03] MEDS: FLUTICASONE/SALMETEROL 45-21 MCG INHALER 1 PUFF 2 PUFF INHALATION (19:46)
[2024-06-04] VITALS (7 sets, daily range): BP systolic 109–134; BP diastolic 71–86; PULSE 54–95; RESP 16–20; TEMP 36.2–37; O2SAT 95–99
[2024-06-04] MEDS: IPRATROPIUM 0.5 MG/ALBUTEROL SULFATE 2.5 MG AMPUL.NEB 3 ML 2.5 ML INHALATION (01:36)
--- NOTE | 2024-06-04 04:41 | PC.NURSE ---
Patient request we do not wake up him up throughout the night. [employer] Operations Superintendent will cluster care and administer 0400 levaquin with morning vitals
[2024-06-04] MEDS: levoFLOXacin 500 MG/D5W 100 ML 500 MG/100 ML BAG 100 MG IVPB (05:36)
[2024-06-04 05:57] LABS: Basophils Percent Auto 0.5 % (0.2-1.2); Eosinophils Absolute Auto 0.1 K/mm3 (0-0.3); Eosinophils Percent Auto 2.1 % (0-4.4); Hematocrit 36.7 % (42.0-52.0); Hemoglobin 12.4 g/dL (14.0-18.0); Immature Granulocyte Absolute 0.04 K/mm3 (0.00-0.031); Immature Granulocyte Percent A 0.6 % (0-0.5); Lymphocytes Absolute Auto 1.67 K/mm3 (0.9-3.2); Lymphocytes Percent Auto 25.2 % (18.3-44.2); Mean Corpuscular HGB Conc 33.8 g/dl (32-36); Mean Corpuscular Hemoglobin 31.6 pg (26-34); Mean Corpuscular Volume 93.6 fl (80-100); Mean Platelet Volume 10.3 fl (7.4-10.4); Monocytes Absolute Auto 0.6 K/mm3 (0.1-0.6); Monocytes Percent Auto 9.3 % (2.6-8.5); Neutrophils Absolute Auto 4.1 K/mm3 (1.3-6.7); Neutrophils Percent Auto 62.3 % (45.5-73.1); Platelet Count Result 291 k/mm3 (150-375); Red Blood Count 3.92 M/mm3 (4.6-6.20); Red Cell Distribution Width 13.1 % (11.5-14.5); White Blood Count 6.6 K/mm3 (4.5-10.0)
[2024-06-04 06:06] LABS: Anion Gap 8 mmol/L (4-12); Blood Urea Nitrogen 4 mg/dL (9-20); Calcium 8.8 mg/dL (8.4-10.2); Carbon Dioxide 24 mmol/L (22-30); Chloride 108 mmol/L (98-107); Estimated CRCL calculation 122 ml/min; Estimated Glomerular Filt Rate > 60; Glucose 84 mg/dL (65-110); Potassium 3.3 mmol/L (3.4-5.0); Sodium 140 mmol/L (137-145)
[2024-06-04] MEDS: FLUTICASONE/SALMETEROL 45-21 MCG INHALER 1 PUFF 2 PUFF INHALATION ×2 (07:33→21:15)
[2024-06-04] MEDS: REMDESIVIR 100 MG/NS 250 ML 100 MG/250 ML BAG 250 MG IVPB (09:37)
--- NOTE | 2024-06-04 09:54 | P.PNIM_ITS ---
Progress Note: A&P Assessment and Plan (1) Anxiety: Code(s): F41.9 - Anxiety disorder, unspecified Status: Acute (2) Chest pain: Code(s): R07.9 - Chest pain, unspecified Status: Acute (3) Atrial fibrillation with rapid ventricular response: Code(s): I48.91 - Unspecified atrial fibrillation Status: Acute (4) Elevated d-dimer: Code(s): R79.89 - Other specified abnormal findings of blood chemistry Status: Acute (5) Suspected chronic obstructive pulmonary disease based on initial evaluation: Code(s): J44.9 - Chronic obstructive pulmonary disease, unspecified Status: Acute (6) COPD exacerbation: Code(s): J44.1 - Chronic obstructive pulmonary disease with (acute) exacerbation Status: Acute (7) Tobacco abuse: Code(s): Z72.0 - Tobacco use Status: Acute Plan This is a 63-year-old male with past medical history significant for tobacco dependence, patient smokes 1 pack of cigarettes daily, presents to the emergency room with worsening shortness of breath, poor per orally intake, nighttime shortness of breath, patient has had some weight loss as well of roughly 20 lb, according to patient he had been placed on breathing treatments by his primary care physician however he felt that he was not benefitting from it and stopped taking them. Preliminary workup was significant for an elevated D-dimer however patient has contrast allergy has been placed on Lovenox awaiting V/Q scan in the morning. Patient has been placed in observation for further evaluation management and treatment. COPD exacerbation: Code(s): J44.1 - Chronic obstructive pulmonary disease with (acute) exacerbation Status: Acute Assessment and Plan: Admit to regular medical floor Breathing treatments Patient started on levofloxacin V/Q scan: Low probability for pulmonary embolism. Continue DuoNeb scheduled, albuterol nebulizer p.r.n., Switch from therapeutic dose of Lovenox to 40 mg subQ for DVT prophylaxis COVID positive from respiratory pathogen test. has worse cough and sob start remdesivir and Symbicort Discontinue nebulizer, start albuterol inhaler p.r.n. Acute bacterial bronchitis Patient has been having worsening cough with phlegm. Patient started on levofloxacin COVID infection Start remdesivir because of COPD exacerbation Start Decadron 6 mg iv daily Tobacco dependence: Code(s): F17.200 - Nicotine dependence, unspecified, uncomplicated Status: Acute Assessment and Plan: Nicotine patch as needed Subjective Date/time seen: 06/04/24 09:54 Interval history: Patient is afebrile, blood pressure stable, patient is on room air, pulse ox 93-96 patient still has shortness breath that is improving today, patient feels nauseous after receiving nebulizer. Patient also has scant phlegm. COVID positive, Exam Narrative: GENERAL: Pleasant, in no acute distress. Well-nourished. - EYES: EOMI. Anicteric. - HENT: Moist mucous membranes. - LUNGS: Distant breath sound bilateral , tachypnea scattered received - CARDIOVASCULAR: Regular rate and rhyth m. No murmur. No JVD. - ABDOMEN: Soft, non-tender and non-dist ended. No palpable masses. - EXTREMITIES: No edema. Peripheral puls es 2+. Non-tender. - NEUROLOGIC: No focal neurological defi cits. CN II-XII grossly intact. - PSYCHIATRIC: Awake, Alert and oriented x 3. Appropriate mood and affect. - SKIN: No rashes or lesions. Warm. - LYMPH: No cervical lymphadenopathy. Objective Data Vital Signs Vital Signs: Vital Signs - 24 hr 06/03/24 13:46 06/03/24 14:22 06/03/24 14:35 Temperature 97.3 F L Pulse Rate 72 58 L 64 Respiratory Rate 16 18 18 Blood Pressure 132/60 Pulse Oximetry 98 Oxygen Delivery Fraction of Inspired Oxygen 06/03/24 16:55 06/03/24 19:46 06/03/24 19:46 Temperature 97.4 F L Pulse Rate 60 64 Respiratory Rate 16 18 Blood Pressure 130/73 Pulse Oximetry 97 94 Oxygen Delivery Room Air Fraction of Inspired Oxygen 06/03/24 19:58 06/03/24 20:49 06/04/24 01:38 Temperature 98.6 F Pulse Rate 71 80 66 Respiratory Rate 18 18 18 Blood Pressure 145/74 H Pulse Oximetry 99 Oxygen Delivery Fraction of Inspired Oxygen 06/04/24 01:44 06/04/24 05:34 06/04/24 07:33 Temperature 98.6 F Pulse Rate 68 76 Respiratory Rate 18 18 Blood Pressure 120/86 Pulse Oximetry 96 95 Oxygen Delivery Room Air Fraction of Inspired Oxygen 06/04/24 07:33 Temperature Pulse Rate 95 Respiratory Rate 16 Blood Pressure Pulse Oximetry Oxygen Delivery Fraction of Inspired Oxygen Intake/Output Intake/Output: Intake & Output 06/01/24 06/02/24 06/03/24 06/04/24 23:59 23:59 23:59 23:59 Intake Total 1000 3268.3 4730 670 Balance 1000 3268.3 4730 670 Meds/Results Medications: Active Medications Generic Name Dose Route Start Last Admin Trade Name Freq PRN Reason Stop Dose Admin Acetaminophen 650 mg 06/01/24 19:39 Acetaminophen 325 Mg Tablet PO Q4H PRN Mild Pain (1-3) or Fever Al Hydrox/Mg Hydrox/Simethicone 30 ml 06/02/24 00:43 Mag Hydrox/Al Hydrox/Simeth 30 Ml Udc PO Q6H PRN Indigestion Albuterol/Ipratropium 2.5 ml 06/02/24 08:00 06/04/24 07:33 Ipratropium 0.5 Mg/Albuterol Sulfate 2.5 Mg Ampul.Neb 3 Ml INHALATION Not Given Q6HRT KATTY Enoxaparin Sodium 40 mg 06/03/24 09:00 06/04/24 09:33 Enoxaparin 40 Mg/0.4 Ml Syringe SUB-Q Not Given DAILY KATTY Hydroxyzine HCl 50 mg 06/02/24 00:40 Hydroxyzine Hcl 25 Mg Tablet PO BID PRN anxiety Sodium Chloride 1,000 mls @ 125 mls/hr 06/01/24 19:40 06/03/24 22:00 Normal Saline Iv IV CONT 125 mls/hr .Q8H KATTY Administration Levofloxacin/Dextrose 500 mg in 100 mls @ 100 mls/hr 06/03/24 04:00 06/04/24 06:36 Levaquin 500 Mg/D5w 100 Ml IVPB Infused Q24H KATTY Infusion Remdesivir 100 mg in 250 mls @ 250 mls/hr 06/04/24 10:00 06/04/24 09:37 IVPB 06/07/24 10:59 250 mls/hr Q24H KATTY Administration Metoprolol Succinate 25 mg 06/02/24 09:00 06/02/24 09:12 Metoprolol Succinate Ext Rel 25 Mg Tabcr PO Not Given DAILY KATTY Mirtazapine 45 mg 06/02/24 00:40 Mirtazapine 15 Mg Tablet PO HS PRN sleep Ondansetron HCl 4 mg 06/02/24 00:43 Ondansetron Inj 4 Mg/2 Ml Vial IV PUSH Q4H PRN Nausea And Vomiting Polyethylene Glycol 17 gm 06/02/24 00:43 Polyethylene Glycol 3350 17 Gm Powd.Pack PO QAM PRN Constipation Fluticasone/Salmeterol 2 puff 06/03/24 20:00 06/04/24 07:33 Fluticasone/Salmeterol 45-21 Mcg Inhaler 1 Puff INHALATION 2 puff Q12HRT KATTY Administration Radiology Results: ITS Impressions Chest X-Ray 06/01/24 18:06 IMPRESSION: 1: NO ACUTE CARDIOPULMONARY DISEASE. Pulmonary Perfusion Imaging 06/02/24 13:07 IMPRESSION: 1. Low probability for pulmonary embolism. Labs Labs: Laboratory Results - last 24 hr 06/03/24 06/04/24 09:57 05:29 WBC 5.5 6.6 RBC 3.72 L 3.92 L Hgb 12.0 L 12.4 L Hct 34.8 L 36.7 L MCV 93.5 93.6 MCH 32.3 31.6 MCHC 34.5 33.8 RDW 13.0 13.1 Plt Count 282 291 MPV 9.5 10.3 Immature Gran % (Auto) 0.6 H 0.6 H Neut % (Auto) 68.3 62.3 Lymph % (Auto) 22.6 25.2 [place] % (Auto) 8.1 9.3 H Eos % (Auto) 0.2 2.1 Baso % (Auto) 0.2 0.5 Lymph # (Auto) 1.23 1.67 [place] # (Auto) 0.4 0.6 Eos # (Auto) 0.0 0.1 Baso # (Auto) 0.0 0.0 Abs Immat Gran (auto) 0.03 0.04 H Absolute Neuts (auto) 3.7 4.1 Absolute Nucleated RBC 0.000 0.000 Nucleated RBC % 0.0 0.0 Sodium 138 140 Potassium 3.1 L 3.3 L Chloride 109 H 108 H Carbon Dioxide 21 L 24 Anion Gap 8 8 BUN 3 L D 4 L Creatinine 0.58 L 0.54 L Estim Creat Clear Calc 115 122 Estimated GFR > 60 > 60 Glucose 114 H 84 Calcium 7.9 L 8.8
[2024-06-04] MEDS: dexAMETHasone SOD PHOS INJ 10 MG/ML 1 ML VIAL 6 MG IV PUSH (17:10)
--- NOTE | 2024-06-05 05:53 | PC.NURSE ---
Patient ask that care in the morning is bundle. Abx to be Administered with lab draw
[2024-06-05] MEDS: levoFLOXacin 500 MG/D5W 100 ML 500 MG/100 ML BAG 100 MG IVPB (05:58)
[2024-06-05 06:00] VITALS: BP 130/70; PULSE 60; RESP 20; TEMP 36.1; O2SAT 98
[2024-06-05 06:24] LABS: Basophils Percent Auto 0.2 % (0.2-1.2); Hematocrit 35.9 % (42.0-52.0); Hemoglobin 12.2 g/dL (14.0-18.0); Immature Granulocyte Absolute 0.05 K/mm3 (0.00-0.031); Immature Granulocyte Percent A 0.8 % (0-0.5); Lymphocytes Absolute Auto 1.15 K/mm3 (0.9-3.2); Lymphocytes Percent Auto 17.4 % (18.3-44.2); Mean Corpuscular Hemoglobin 31.8 pg (26-34); Mean Corpuscular Volume 93.5 fl (80-100); Mean Platelet Volume 9.9 fl (7.4-10.4); Monocytes Absolute Auto 0.5 K/mm3 (0.1-0.6); Monocytes Percent Auto 7.1 % (2.6-8.5); Neutrophils Absolute Auto 4.9 K/mm3 (1.3-6.7); Neutrophils Percent Auto 74.5 % (45.5-73.1); Platelet Count Result 288 k/mm3 (150-375); Red Blood Count 3.84 M/mm3 (4.6-6.20); White Blood Count 6.6 K/mm3 (4.5-10.0)
[2024-06-05 06:35] LABS: Chloride 105 mmol/L (98-107)
[2024-06-05 06:37] LABS: Anion Gap 9 mmol/L (4-12); Blood Urea Nitrogen 11 mg/dL (9-20); Calcium 8.6 mg/dL (8.4-10.2); Carbon Dioxide 23 mmol/L (22-30); Estimated CRCL calculation 122 ml/min; Estimated Glomerular Filt Rate > 60; Glucose 110 mg/dL (65-110); Potassium 3.9 mmol/L (3.4-5.0); Sodium 137 mmol/L (137-145)
[2024-06-05 06:38] LABS: Alanine Aminotransferase 30 U/L (6-50); Albumin Level 3.2 g/dL (3.5-5.1); Alkaline Phosphatase 83 U/L (38-126); Anion Gap 8 mmol/L (4-12); Aspartate Amino Transferase 33 U/L (17-59); Bilirubin,Total 0.6 mg/dL (0.2-1.3); Blood Urea Nitrogen 12 mg/dL (9-20); Calcium 8.5 mg/dL (8.4-10.2); Carbon Dioxide 24 mmol/L (22-30); Chloride 105 mmol/L (98-107); Estimated CRCL calculation 122 ml/min; Estimated Glomerular Filt Rate > 60; Glucose 111 mg/dL (65-110); Potassium 3.9 mmol/L (3.4-5.0); Sodium 137 mmol/L (137-145)
[2024-06-05] MEDS: FLUTICASONE/SALMETEROL 45-21 MCG INHALER 1 PUFF 2 PUFF INHALATION (07:34)
[2024-06-05 07:35] VITALS: PULSE 74; RESP 18; O2SAT 96
[2024-06-05] MEDS: IPRATROPIUM 0.5 MG/ALBUTEROL SULFATE 2.5 MG AMPUL.NEB 3 ML 2.5 ML INHALATION (07:36)
[2024-06-05 08:06] LABS: INR 1.1; Prothrombin Time 14.5 Seconds (11.1-14.7)
--- NOTE | 2024-06-05 09:15 | PM.IMPN ---
Progress Note: A&P Assessment and Plan (1) Anxiety: Code(s): F41.9 - Anxiety disorder, unspecified Status: Acute (2) Chest pain: Code(s): R07.9 - Chest pain, unspecified Status: Acute (3) Atrial fibrillation with rapid ventricular response: Code(s): I48.91 - Unspecified atrial fibrillation Status: Acute (4) Elevated d-dimer: Code(s): R79.89 - Other specified abnormal findings of blood chemistry Status: Acute (5) Suspected chronic obstructive pulmonary disease based on initial evaluation: Code(s): J44.9 - Chronic obstructive pulmonary disease, unspecified Status: Acute (6) COPD exacerbation: Code(s): J44.1 - Chronic obstructive pulmonary disease with (acute) exacerbation Status: Acute (7) Tobacco abuse: Code(s): Z72.0 - Tobacco use Status: Acute Plan This is a 63-year-old male with past medical history significant for tobacco dependence, patient smokes 1 pack of cigarettes daily, presents to the emergency room with worsening shortness of breath, poor per orally intake, nighttime shortness of breath, patient has had some weight loss as well of roughly 20 lb, according to patient he had been placed on breathing treatments by his primary care physician however he felt that he was not benefitting from it and stopped taking them. Preliminary workup was significant for an elevated D-dimer however patient has contrast allergy has been placed on Lovenox awaiting V/Q scan in the morning. Patient has been placed in observation for further evaluation management and treatment. COPD exacerbation: Code(s): J44.1 - Chronic obstructive pulmonary disease with (acute) exacerbation Status: Acute Assessment and Plan: Admit to regular medical floor Breathing treatments Patient started on levofloxacin V/Q scan: Low probability for pulmonary embolism. Continue DuoNeb scheduled, albuterol nebulizer p.r.n., Switch from therapeutic dose of Lovenox to 40 mg subQ for DVT prophylaxis COVID positive from respiratory pathogen test. has worse cough and sob start remdesivir and Symbicort Discontinue nebulizer, start albuterol inhaler p.r.n. 06/05: Resolved, dyspnea resolved, patient is on room air, continue dexamethasone 6 mg p.o. daily, continue Symbicort 2 puff b.i.d., albuterol nebulizer inhaler 2 puff Q 4 p.r.n. Acute bacterial bronchitis Patient has been having worsening cough with phlegm. Patient started on levofloxacin COVID infection Start remdesivir because of COPD exacerbation Start Decadron 6 mg iv daily, continue Decadron p.o. on discharge Tobacco dependence: Code(s): F17.200 - Nicotine dependence, unspecified, uncomplicated Status: Acute Assessment and Plan: Nicotine patch as needed Subjective Date/time seen: 06/05/24 09:15 Interval history: Patient is afebrile, blood pressure stable, patient is on room air, pulse ox 96-99% on room air patient denies shortness breath, still has a cough, denies chest pain abdomen pain nausea vomiting diarrhea. Exam Narrative: GENERAL: Pleasant, in no acute distress. Well-nourished. - EYES: EOMI. Anicteric. - HENT: Moist mucous membranes. - LUNGS: Clear to auscultation bilaterally, no wheezing, rhonchi, or rales. - CARDIOVASCULAR: Regular rate and rhythm. No murmur. No JVD. - ABDOMEN: Soft, non-tender and non-distended. No palpable masses. - EXTREMITIES: No edema. Peripheral pulses 2+. Non-tender. - NEUROLOGIC: No focal neurological deficits. CN II-XII grossly intact. - PSYCHIATRIC: Awake, Alert and oriented x 3. Appropriate mood and affect. - SKIN: No rashes or lesions. Warm. - LYMPH: No cervical lymphadenopathy. Objective Data Vital Signs Vital Signs: Vital Signs - 24 hr 06/04/24 09:30 06/04/24 13:45 06/04/24 21:34 Temperature 97.2 F L Pulse Rate 54 L Respiratory Rate 18 Blood Pressure 109/71 Pulse Oximetry 97 96 Oxygen Delivery Room Air Room Air Fraction of Inspired Oxygen 21 06/04/24 22:00 06/05/24 06:00 06/05/24 07:35 Temperature 97.1 F L 97.0 F L Pulse Rate 73 60 74 Respiratory Rate 20 20 18 Blood Pressure 134/76 130/70 Pulse Oximetry 99 98 96 Oxygen Delivery Room Air Fraction of Inspired Oxygen 06/05/24 07:35 Temperature Pulse Rate 74 Respiratory Rate 18 Blood Pressure Pulse Oximetry Oxygen Delivery Fraction of Inspired Oxygen Intake/Output Intake/Output: Intake & Output 06/02/24 06/03/24 06/04/2425 23:59 23:59 23:59 23:59 Intake Total 3268.3 4730 2550 400 Balance 3268.3 4730 2550 400 Meds/Results Medications: Active Medications Generic Name Dose Route Start Last Admin Trade Name Freq PRN Reason Stop Dose Admin Acetaminophen 650 mg 06/01/24 19:39 Acetaminophen 325 Mg Tablet PO Q4H PRN Mild Pain (1-3) or Fever Al Hydrox/Mg Hydrox/Simethicone 30 ml 06/02/24 00:43 Mag Hydrox/Al Hydrox/Simeth 30 Ml Udc PO Q6H PRN Indigestion Albuterol/Ipratropium 2.5 ml 06/02/24 08:00 06/05/24 07:36 Ipratropium 0.5 Mg/Albuterol Sulfate 2.5 Mg Ampul.Neb 3 Ml INHALATION 2.5 ml Q6HRT KATTY Administration Dexamethasone Sodium Phosphate 6 mg 06/04/24 14:55 06/04/24 17:10 Dexamethasone Sod Phos Inj 10 Mg/Ml 1 Ml Vial IV PUSH 06/13/24 09:01 6 mg DAILY KATTY Administration Enoxaparin Sodium 40 mg 06/03/24 09:00 06/04/24 09:33 Enoxaparin 40 Mg/0.4 Ml Syringe SUB-Q Not Given DAILY KATTY Hydroxyzine HCl 50 mg 06/02/24 00:40 Hydroxyzine Hcl 25 Mg Tablet PO BID PRN anxiety Levofloxacin/Dextrose 500 mg in 100 mls @ 100 mls/hr 06/03/24 04:00 06/05/24 05:58 Levaquin 500 Mg/D5w 100 Ml IVPB 100 mls/hr Q24H KATTY Administration Remdesivir 100 mg in 250 mls @ 250 mls/hr 06/04/24 10:00 06/04/24 10:37 IVPB 06/07/24 10:59 Infused Q24H KATTY Infusion Metoprolol Succinate 25 mg 06/02/24 09:00 06/02/24 09:12 Metoprolol Succinate Ext Rel 25 Mg Tabcr PO Not Given DAILY KATTY Mirtazapine 45 mg 06/02/24 00:40 Mirtazapine 15 Mg Tablet PO HS PRN sleep Ondansetron HCl 4 mg 06/02/24 00:43 Ondansetron Inj 4 Mg/2 Ml Vial IV PUSH Q4H PRN Nausea And Vomiting Polyethylene Glycol 17 gm 06/02/24 00:43 Polyethylene Glycol 3350 17 Gm Powd.Pack PO QAM PRN Constipation Fluticasone/Salmeterol 2 puff 06/03/24 20:00 06/05/24 07:34 Fluticasone/Salmeterol 45-21 Mcg Inhaler 1 Puff INHALATION 2 puff Q12HRT KATTY Administration Radiology Results: ITS Impressions Chest X-Ray 06/01/24 18:06 IMPRESSION: 1: NO ACUTE CARDIOPULMONARY DISEASE. Pulmonary Perfusion Imaging 06/02/24 13:07 IMPRESSION: 1. Low probability for pulmonary embolism. Labs Labs: Laboratory Results - last 24 hr 06/05/24 06/05/24 06/05/24 06:02 06:02 06:02 WBC 6.6 RBC 3.84 L Hgb 12.2 L Hct 35.9 L MCV 93.5 MCH 31.8 MCHC 34.0 RDW 13.0 Plt Count 288 MPV 9.9 Immature Gran % (Auto) 0.8 H Neut % (Auto) 74.5 H Lymph % (Auto) 17.4 L [place] % (Auto) 7.1 Eos % (Auto) 0.0 Baso % (Auto) 0.2 Lymph # (Auto) 1.15 [place] # (Auto) 0.5 Eos # (Auto) 0.0 Baso # (Auto) 0.0 Abs Immat Gran (auto) 0.05 H Absolute Neuts (auto) 4.9 Absolute Nucleated RBC 0.000 Nucleated RBC % 0.0 PT INR Sodium 137 137 Potassium 3.9 3.9 Chloride 105 Carbon Dioxide Anion Gap BUN Creatinine Estim Creat Clear Calc Estimated GFR Glucose Calcium Total Bilirubin AST ALT Alkaline Phosphatase Total Protein Albumin 06/05/24 06/05/24 06/05/24 06:02 06:02 06:02 WBC RBC Hgb Hct MCV MCH MCHC RDW Plt Count MPV Immature Gran % (Auto) Neut % (Auto) Lymph % (Auto) [place] % (Auto) Eos % (Auto) Baso % (Auto) Lymph # (Auto) [place] # (Auto) Eos # (Auto) Baso # (Auto) Abs Immat Gran (auto) Absolute Neuts (auto) Absolute Nucleated RBC Nucleated RBC % PT INR Sodium Potassium Chloride 105 Carbon Dioxide 24 23 Anion Gap 8 9 BUN 12 D Creatinine Estim Creat Clear Calc Estimated GFR Glucose Calcium Total Bilirubin AST ALT Alkaline Phosphatase Total Protein Albumin 06/05/24 06/05/24 06/05/24 06:02 06:02 06:02 WBC RBC Hgb Hct MCV MCH MCHC RDW Plt Count MPV Immature Gran % (Auto) Neut % (Auto) Lymph % (Auto) [place] % (Auto) Eos % (Auto) Baso % (Auto) Lymph # (Auto) [place] # (Auto) Eos # (Auto) Baso # (Auto) Abs Immat Gran (auto) Absolute Neuts (auto) Absolute Nucleated RBC Nucleated RBC % PT INR Sodium Potassium Chloride Carbon Dioxide Anion Gap BUN 11 Creatinine 0.54 L 0.54 L Estim Creat Clear Calc 122 122 Estimated GFR > 60 Glucose Calcium Total Bilirubin AST ALT Alkaline Phosphatase Total Protein Albumin 06/05/24 06/05/24 06/05/24 06:02 06:02 06:02 WBC RBC Hgb Hct MCV MCH MCHC RDW Plt Count MPV Immature Gran % (Auto) Neut % (Auto) Lymph % (Auto) [place] % (Auto) Eos % (Auto) Baso % (Auto) Lymph # (Auto) [place] # (Auto) Eos # (Auto) Baso # (Auto) Abs Immat Gran (auto) Absolute Neuts (auto) Absolute Nucleated RBC Nucleated RBC % PT INR Sodium Potassium Chloride Carbon Dioxide Anion Gap BUN Creatinine Estim Creat Clear Calc Estimated GFR > 60 Glucose 111 H 110 Calcium 8.5 8.6 Total Bilirubin 0.6 AST 33 ALT 30 Alkaline Phosphatase 83 Total Protein 6.0 L Albumin 3.2 L 06/05/24 07:49 WBC RBC Hgb Hct MCV MCH MCHC RDW Plt Count MPV Immature Gran % (Auto) Neut % (Auto) Lymph % (Auto) [place] % (Auto) Eos % (Auto) Baso % (Auto) Lymph # (Auto) [place] # (Auto) Eos # (Auto) Baso # (Auto) Abs Immat Gran (auto) Absolute Neuts (auto) Absolute Nucleated RBC Nucleated RBC % PT 14.5 INR 1.1 Sodium Potassium Chloride Carbon Dioxide Anion Gap BUN Creatinine Estim Creat Clear Calc Estimated GFR Glucose Calcium Total Bilirubin AST ALT Alkaline Phosphatase Total Protein Albumin
[2024-06-05] MEDS: REMDESIVIR 100 MG/NS 250 ML 100 MG/250 ML BAG 250 MG IVPB (10:05)
[2024-06-05] MEDS: dexAMETHasone SOD PHOS INJ 10 MG/ML 1 ML VIAL 6 MG IV PUSH (10:15)
--- NOTE | 2024-06-05 13:06 | P.DS_ITS ---
DS: Admitting Diagnosis Discharge Date 06/05/24 Admitting Diagnosis (1) Anxiety: Code(s): F41.9 - Anxiety disorder, unspecified Status: Acute (2) Chest pain: Code(s): R07.9 - Chest pain, unspecified Status: Acute (3) Atrial fibrillation with rapid ventricular response: Code(s): I48.91 - Unspecified atrial fibrillation Status: Acute (4) Elevated d-dimer: Code(s): R79.89 - Other specified abnormal findings of blood chemistry Status: Acute (5) Suspected chronic obstructive pulmonary disease based on initial evaluation: Code(s): J44.9 - Chronic obstructive pulmonary disease, unspecified Status: Acute (6) COPD exacerbation: Code(s): J44.1 - Chronic obstructive pulmonary disease with (acute) exacerbation Status: Acute (7) Tobacco abuse: Code(s): Z72.0 - Tobacco use Status: Acute DS: Discharge Diagnosis Discharge Diagnosis (1) Anxiety: Code(s): F41.9 - Anxiety disorder, unspecified Status: Acute (2) Chest pain: Code(s): R07.9 - Chest pain, unspecified Status: Acute (3) Atrial fibrillation with rapid ventricular response: Code(s): I48.91 - Unspecified atrial fibrillation Status: Acute (4) Elevated d-dimer: Code(s): R79.89 - Other specified abnormal findings of blood chemistry Status: Acute (5) Suspected chronic obstructive pulmonary disease based on initial evaluation: Code(s): J44.9 - Chronic obstructive pulmonary disease, unspecified Status: Acute (6) COPD exacerbation: Code(s): J44.1 - Chronic obstructive pulmonary disease with (acute) exacerbation Status: Acute (7) Tobacco abuse: Code(s): Z72.0 - Tobacco use Status: Acute DS: Summary Hospital Course Hospital Course: This is a 63-year-old male with past medical history significant for tobacco dependence, patient smokes 1 pack of cigarettes daily, presents to the emergency room with worsening shortness of breath, poor per orally intake, nighttime shortness of breath, patient has had some weight loss as well of roughly 20 lb, according to patient he had been placed on breathing treatments by his primary care physician however he felt that he was not benefitting from it and stopped taking them. Preliminary workup was significant for an elevated D-dimer however patient has contrast allergy has been placed on Lovenox awaiting V/Q scan in the morning. Patient has been placed in observation for further evaluation management and treatment. The following med issues have been addressed during hospitalization COPD exacerbation: Code(s): J44.1 - Chronic obstructive pulmonary disease with (acute) exacerbation Status: Acute Assessment and Plan: Admit to regular medical floor Breathing treatments Patient started on levofloxacin V/Q scan: Low probability for pulmonary embolism. Continue DuoNeb scheduled, albuterol nebulizer p.r.n., Switch from therapeutic dose of Lovenox to 40 mg subQ for DVT prophylaxis COVID positive from respiratory pathogen test. has worse cough and sob start remdesivir and Symbicort Discontinue nebulizer, start albuterol inhaler p.r.n. 06/05: Resolved, dyspnea resolved, patient is on room air, continue dexamethasone 6 mg p.o. daily, continue Symbicort 2 puff b.i.d., albuterol nebulizer inhaler 2 puff Q 4 p.r.n. Acute bacterial bronchitis Patient has been having worsening cough with phlegm. Patient started on levofloxacin COVID infection received remdesivir because of COPD exacerbation StartedDecadron 6 mg iv daily, continue Decadron p.o. on discharge Tobacco dependence: Code(s): F17.200 - Nicotine dependence, unspecified, uncomplicated Status: Acute Assessment and Plan: Nicotine patch as needed Patient declines nicotine patch Time Spent with Patient Time attestation: Total time spent providing and/or coordinating discharge services: Exam Narrative: GENERAL: Pleasant, in no acute distress. Well-nourished. - EYES: EOMI. Anicteric. - HENT: Moist mucous membranes. - LUNGS: Clear to auscultation bilateral ly, no wheezing, rhonchi, or rales. - CARDIOVASCULAR: Regular rate and rhyth m. No murmur. No JVD. - ABDOMEN: Soft, non-tender and non-dist ended. No palpable masses. - EXTREMITIES: No edema. Peripheral puls es 2+. Non-tender. - NEUROLOGIC: No focal neurological defi cits. CN II-XII grossly intact. - PSYCHIATRIC: Awake, Alert and oriented x 3. Appropriate mood and affect. - SKIN: No rashes or lesions. Warm. - LYMPH: No cervical lymphadenopathy. DS: Data Data Completed and Pending Labs on day of discharge: Labs from last 24 hours 06/05/24 06/05/24 06/05/24 07:49 06:02 06:02 WBC RBC Hgb Hct MCV MCH MCHC RDW Plt Count MPV Immature Gran % (Auto) Neut % (Auto) Lymph % (Auto) Mcmullen % (Auto) Eos % (Auto) Baso % (Auto) Lymph # (Auto) Mcmullen # (Auto) Eos # (Auto) Baso # (Auto) Abs Immat Gran (auto) Absolute Neuts (auto) Absolute Nucleated RBC Nucleated RBC % PT 14.5 INR 1.1 Sodium Potassium Chloride Carbon Dioxide Anion Gap BUN Creatinine Estim Creat Clear Calc Estimated GFR Glucose 110 Calcium 8.6 8.5 Total Bilirubin 0.6 AST 33 ALT 30 Alkaline Phosphatase 83 Total Protein 6.0 L Albumin 3.2 L 06/05/24 06/05/24 06/05/24 06:02 06:02 06:02 WBC RBC Hgb Hct MCV MCH MCHC RDW Plt Count MPV Immature Gran % (Auto) Neut % (Auto) Lymph % (Auto) Mcmullen % (Auto) Eos % (Auto) Baso % (Auto) Lymph # (Auto) Mcmullen # (Auto) Eos # (Auto) Baso # (Auto) Abs Immat Gran (auto) Absolute Neuts (auto) Absolute Nucleated RBC Nucleated RBC % PT INR Sodium Potassium Chloride Carbon Dioxide Anion Gap BUN Creatinine 0.54 L Estim Creat Clear Calc 122 122 Estimated GFR > 60 > 60 Glucose 111 H Calcium Total Bilirubin AST ALT Alkaline Phosphatase Total Protein Albumin 06/05/24 06/05/24 06/05/24 06:02 06:02 06:02 WBC RBC Hgb Hct MCV MCH MCHC RDW Plt Count MPV Immature Gran % (Auto) Neut % (Auto) Lymph % (Auto) Mcmullen % (Auto) Eos % (Auto) Baso % (Auto) Lymph # (Auto) Mcmullen # (Auto) Eos # (Auto) Baso # (Auto) Abs Immat Gran (auto) Absolute Neuts (auto) Absolute Nucleated RBC Nucleated RBC % PT INR Sodium Potassium Chloride Carbon Dioxide 23 Anion Gap 9 8 BUN 11 12 D Creatinine 0.54 L Estim Creat Clear Calc Estimated GFR Glucose Calcium Total Bilirubin AST ALT Alkaline Phosphatase Total Protein Albumin 06/05/24 06/05/24 06/05/24 06:02 06:02 06:02 WBC RBC Hgb Hct MCV MCH MCHC RDW Plt Count MPV Immature Gran % (Auto) Neut % (Auto) Lymph % (Auto) Mcmullen % (Auto) Eos % (Auto) Baso % (Auto) Lymph # (Auto) Mcmullen # (Auto) Eos # (Auto) Baso # (Auto) Abs Immat Gran (auto) Absolute Neuts (auto) Absolute Nucleated RBC Nucleated RBC % PT INR Sodium 137 Potassium 3.9 3.9 Chloride 105 105 Carbon Dioxide 24 Anion Gap BUN Creatinine Estim Creat Clear Calc Estimated GFR Glucose Calcium Total Bilirubin AST ALT Alkaline Phosphatase Total Protein Albumin 06/05/24 06:02 WBC 6.6 RBC 3.84 L Hgb 12.2 L Hct 35.9 L MCV 93.5 MCH 31.8 MCHC 34.0 RDW 13.0 Plt Count 288 MPV 9.9 Immature Gran % (Auto) 0.8 H Neut % (Auto) 74.5 H Lymph % (Auto) 17.4 L Mcmullen % (Auto) 7.1 Eos % (Auto) 0.0 Baso % (Auto) 0.2 Lymph # (Auto) 1.15 Mcmullen # (Auto) 0.5 Eos # (Auto) 0.0 Baso # (Auto) 0.0 Abs Immat Gran (auto) 0.05 H Absolute Neuts (auto) 4.9 Absolute Nucleated RBC 0.000 Nucleated RBC % 0.0 PT INR Sodium 137 Potassium Chloride Carbon Dioxide Anion Gap BUN Creatinine Estim Creat Clear Calc Estimated GFR Glucose Calcium Total Bilirubin AST ALT Alkaline Phosphatase Total Protein Albumin Discharge Plan Discharge Attending physician on discharge: Monica Trivedi Discharging Clinician: Monica Trivedi Anticipated Discharge Date/Time: 06/05/24 12:58 Activity: as tolerated Diet: as tolerated and heart healthy Patient Language: Slovak Follow-up/Referrals: UNKNOWN,DOCTOR [Primary Care Provider] - (Patient needs to see primary care doctor in 1 week) Discharge Medications: New fluticasone propion-salmeterol [Advair HFA] 45-21 mcg/actuation Hfa Aerosol Inhaler 2 puff inhalation Q12HRT Qty: 1 0RF albuterol sulfate [Ventolin HFA] 90 mcg/actuation HFA aerosol inhaler 2 puff inhalation QID PRN (Reason: shortness of breath or wheezing) Qty: 8.5 1RF levofloxacin 750 mg tablet 750 mg PO DAILY Qty: 2 0RF dexamethasone 6 mg tablet 6 mg PO DAILY Qty: 7 0RF Continued metoprolol succinate 25 mg tablet extended release 24 hr 25 mg PO DAILY Qty: 30 1RF mirtazapine 45 mg tablet 45 mg PO HS PRN (Reason: sleep) sertraline 100 mg tablet 200 mg PO DAILY Discontinued hydroxyzine HCl 50 mg tablet 50 mg PO BID PRN (Reason: anxiety) Date of admission: 06/03/24 16:18 Primary Care Provider: UNKNOWN,DOCTOR Admitting Provider: Louise Han V. Attending physician on admission: Louise Han V. Condition: Stable
--- OUTSIDE RECORDS SUMMARY | 2024-06-08 04:20 | XMS_ITS | Clinical Summary ---
Author Organization [facility] Address [address] [place] [id number] Care Team Providers Care Pediatric Lpn Name Role Phone Jian Iverson MD Primary Care Provider [phone] Allergies Active Allergy Reactions Criticality Noted Date Comments Amoxicillin Angioedema High 03/07/2015 legs draw up Iodine Palpitations Low 03/11/2015 HEART RACING Medications hydrOXYzine (ATARAX) 50 mg tablet Take 1 tablet (50 mg total) by mouth 2 (two) times a day as needed 07/19/2023 Active mirtazapine (REMERON) 45 mg tablet Take 1 tablet (45 mg total) by mouth nightly at bedtime. 07/19/2023 Active sertraline (ZOLOFT) 100 mg tablet TAKE 2 TABLETS BY MOUTH ONCE DAILY IN THE MORNING 07/20/2023 Active Active Problems Problem Noted Date Diagnosed Date Non-rheumatic tricuspid valve insufficiency 07/16 Precordial pain 08/10/2023 PANIAGUA (dyspnea on exertion) 08/10/2023 Palpitations 08/10/2023 Dizziness 08/10/2023 Abnormal EKG 08/10/2023 Family History Medical History Relation Name Comments Stroke Father Stroke Mother Relation Name Status Comments Father Mother Social History Tobacco Use Types Packs/Day Years Used Date Smoking Tobacco: Every Day Cigarettes 1 52.1 Started: 1972 Tobacco Cessation:Ready to Q uit: Not Asked; Counseling Given: Not Answered Personal Safety Answer Date Recorded Getting School Help Needed Not on file 04/30 Sex and Gender Information Value Date Recorded Sex Assigned at Not on file Legal Sex Male 2:25 AM CONTESTANT COORDINATOR Gender Identity Not on file Sexual Orientation Not on file Obstetrics History Last Filed Vital Signs Vital Sign Reading Time Taken Comments Blood Pressure 120/70 08/10/2023 10:52 AM CDT Pulse 60 08/10/2023 10:52 AM CDT Temperature 36.7 ??C (98 ??F) 08/28/2015 3:14 PM CDT Respiratory Rate - - Oxygen Saturation 97% 08/10/2023 10:52 AM CDT Inhaled Oxygen Concentration - - Weight 77.6 kg (171 lb) 08/10/2023 10:52 AM CDT Height 180.3 cm (5' 11 ) 08/28/2015 3:14 PM CDT Body Mass Index 23.85 08/28/2015 3:14 PM CDT Plan of Treatment Health Maintenance Due Date Last Done Comments Colon Cancer Screening-Colonoscopy 1959 Depression Screening 1960 Pneumococcal vaccine <65 (1 of 2 - PCV) 12/10/1965 DTaP/Tdap/Td Vaccine (1 - Tdap) 12/10/1970 Hepatitis B Screening 12/10/1977 Regular Well Visit/Exam 18-64 12/10/1977 Lung Cancer Screening 12/10/2009 Zoster Vaccine (1 of 2) 12/10/2009 Influenza Vaccine (#1) 2024 Prostate Cancer Screening-PSA 08/24/2024 08/24/2022, 06/18/2014 Hepatitis C Screening Completed 07/07/2018 , 05/25/2017, 05/25/2017, Additional history exists Procedures Procedure Name Priority Date/Time Associated Diagnosis Comments PSA, TOTAL AND FREE Routine 08/24/2022 1 1:41 AM CDT HEPATITIS C RNA, QUANTITATIVE, PCR Routine 07/07/2018 11:43 AM CONTESTANT COORDINATOR from Last 3 Months or Most Recently Relevant to Health Maintenance Results * PSA, total and free (08/24/2022 11:41 AM CDT) PSA-free 0.2 ng/mL [facility] PSA-Total 0.99 <=4.5 ng/mL BOB[facility] PSA-Free/Total Ratio See Footnote BOBBI Comment: Ratio not calculated because clinical usefulness is not ?? defined except in range of total PSA 4.0-10.0 ng/mL. ADDITIONAL INFORMATION The testing method is an electrochemiluminescence assay manufactured by [employer] and performed on the Modular or Howard system. Values obtained with different assay methods or kits may be different and cannot be used interchangeably. Test results cannot be interpreted as absolute evidence for the presence or absence of malignant disease. Test Performed by: [facility] [address] [id number] Loom Fixer Apprentice: Isidro Saxena M.D. Ph.D.; CLIA# [id number] Blood 08/24/2022 11:4 1 AM CDT 08/24/2022 11:55 AM CDT Jian Iverson MD LAB BLOOD ORDERABLES Final Resu lt [facility] [address] [facility] Department [place] [address] * Hepatitis C (HCV) RNA PCR, quantitative (07/07/2018 11:43 AM CONTESTANT COORDINATOR) HCV RNA IU/mL Not Detected IU/mL HCV RNA log IU/mL Not Detected log IU/mL HCV quant by NAAT interp Not Detected Not Detected Comment: INTERPRETIVE INFORMATION: HCV by Quantitative NAAT ?? Normal range for this assay is Not Detected . ?? The quantitative range of this assay is 10 - 100,000,000 ?? IU/mL (1.0 - 8.0 log IU/mL). ?? Lower limit of quantitation (LLoQ): ?? 10 IU/mL (1.0 log IU/mL) ?? LLoQ values do not apply to diluted specimens. ?? A result of Not Detected does not rule out the presence ?? of inhibitors in the patient specimen or hepatitis C virus ?? RNA concentrations below the level of detection of the ?? test. Care should be taken when interpreting any single ?? viral load determination. ?? This test should not be used for blood donor screening, ?? associated re-entry protocols, or for screening Human Cell, ?? Tissues and Cellular Tissue-Based Products (HCT/P). ?? Performed by [facility], ?? [address] [facility] [place] [address] ?? [email or web address], Kristian Farley MD, Lab. Director ?? 07/07/2018 11:4 3 AM CONTESTANT COORDINATOR 07/07/2018 12:24 PM CONTESTANT COORDINATOR us Nishant Evans MD LAB MICROBIOLOGY - GENERAL ORDERABLES Final Result [facility] HISTORICAL RESULTS from Last 3 Months or Most Recently Relevant to Health Maintenance Insurance [facility] Care Teams Pediatric Lpn Relationship Specialty Start Date End Date Jian Iverson MD PCP - General Family Medicine 08/24/22
--- OUTSIDE RECORDS SUMMARY | 2024-06-08 04:20 | XMS_ITS | Referral Summary ---
Author Organization [facility] Address [address] [place] [id number] Care Team Providers Care Clinical Psychiatrist Name Role Phone Jian Iverson MD Primary Care Provider [phone] Allergies Active Allergy Reactions Criticality Noted Date [...] Palpitations 08/10/2023 Dizziness 08/10/2023 Abnormal EKG 08/10/2023 Social History Tobacco Use Types Packs/Day Years Used Date Smoking Tobacco: Every Day Cigarettes 1 52.1 Started: 1972 Tobacco Cessation:Ready to Q uit: Not Asked; Counseling Given: Not Answered Personal Safety Answer Date Recorded Getting School Help Needed Not on file 04/30 Sex and Gender Information Value Date Recorded Sex Assigned at Not on file Legal Sex Male 2:25 AM PRIVATE WEALTH ADVISOR Gender Identity Not on file Sexual Orientation Not on file Last Filed Vital Signs Vital Sign Reading [...] 08/28/2015 3:14 PM CDT Plan of Treatment Not on file Procedures Procedure Name Priority Date/Time Associated Diagnosis Comments PSA, TOTAL AND FREE Routine 08/24/2022 1 1:41 AM CDT HEPATITIS C RNA, QUANTITATIVE, PCR Routine 07/07/2018 11:43 AM PRIVATE WEALTH ADVISOR from Last 3 Months or Most Recently Relevant to Health Maintenance Results * PSA, total and free (08/24/2022 11:41 AM CDT) Pathologist [facility] PSA-free 0.2 ng/mL [facility] PSA-Total 0.99 <=4.5 ng/mL O[facility] PSA-Free/Total Ratio See Footnote BOBBI Comment: Ratio [...] absence of malignant disease. Test Performed by: [address] [place] [address] Computer Operations Analyst: Isidro Saxena M.D. Ph.D.; CLIA# [id number] Blood 08/24/2022 11:4 1 AM CDT 08/24/2022 11:55 AM CDT us Jian Iverson MD LAB BLOOD ORDERABLES Final Resu lt Performing Organization Address [facility]/ZIP Co de Phone Number [facility] [address] [facility] Department [place] [address] * Hepatitis C (HCV) RNA PCR, quantitative (07/07/2018 11:43 AM PRIVATE WEALTH ADVISOR) Pathologist [facility] HCV RNA IU/mL Not Detected IU/mL 07/09/2018 4:08 PM PRIVATE WEALTH ADVISOR [facility] HISTORICAL RESULTS HCV RNA log IU/mL Not Detected log [...] Cellular Tissue-Based Products (HCT/P). ?? Performed by [facility], ?? [address] [place] [address] ?? [email or web address], Kristian Farley MD, Lab. Director ?? 07/07/2018 11:4 3 AM PRIVATE WEALTH ADVISOR 07/07/2018 12:24 PM PRIVATE WEALTH ADVISOR us Nishant Evans MD LAB MICROBIOLOGY - GENERAL ORDERABLES Final Result Performing Organization Address [facility]/ZIP Co de Phone Number [facility] HISTORICAL RESULTS from Last 3 Months or Most Recently Relevant to Health Maintenance Insurance [facility] Care Teams Clinical Psychiatrist Relationship Specialty Start Date End Date Jian Iverson MD PCP - General Family Medicine 08/24/22
== END 2024-06-05 15:00 | disposition home or self-care (01) | DRG 137 ==
LOC: ANHED 19:37 → ANH3MED 21:40
PROVIDERS: Registered Nurse; Admitting Provider Internal Medicine; Emergency Provider Family Medicine; Visit Provider Hospitalist
DX: U07.1 COVID-19 (principal); F17.210 Nicotine dependence, cigarettes, uncomplicated; J44.1 Chronic obstructive pulmonary disease with (acute) exacerbation; J44.0 Chronic obstructive pulmonary disease with (acute) lower respiratory infection; J20.8 Acute bronchitis due to other specified organisms; F41.9 Anxiety disorder, unspecified; I48.91 Unspecified atrial fibrillation; R79.89 Other specified abnormal findings of blood chemistry
CPT/HCPCS: 36415; 71045; 78582; 80048; 80053; 81001; 83880; 84484; 85025; 85380; 85610; 85730; 87637; 93005; 94640; 96361; 96372; 99285; A9270; A9540; A9558; G0378; G0379; J0248; J1100; J1650; J1956; J7030

== ENCOUNTER 2024-12-20 03:59 | Inpatient (IN) | payer OTHER, SELFPAY ==
[2024-12-20] VITALS (20 sets, daily range): BP systolic 110–131; BP diastolic 60–84; PULSE 53–83; RESP 13–21; TEMP 36.4–36.8; O2SAT 94–100; BMI 25.0
--- NOTE | ~2024-12-20 | XR_ITS ---
Clinical Indication: Chest pain PA and lateral views of the chest: Comparison: 06/01/2024 Findings: The lungs are clear, without evidence of focal consolidation or pleural effusion. Cardiome diastinal silhouette is within normal limits. Bones and soft tissues are unremarkable. Impression: Normal chest. Reviewed, dictated and finalized at location . Impression: Normal chest.
--- NOTE | ~2024-12-20 | XR_ITS ---
EXAMINATION: XR chest 1V portable DATE: 12/23/2024 08:26 INDICATION: Pneumonia TECHNIQUE: frontal view of the chest was obtained. COMPARISON: Chest radiograph dated 12/20/2024 FINDINGS: New airspace opacities at the lateral left lung base. No pulmonary edema, pleural effusion or pneumot horax. The cardiomediastinal silhouette is normal. IMPRESSION: 1. New opacities at the lateral left lung base which could represent atelectasis or pneumonia. Reviewed, dictated and finalized at location A. IMPRESSION: 1. New opacities at the lateral left lung base which could represent atelectasi s or pneumonia.
--- NOTE | 2024-12-20 04:01 | ECG_ITS ---
Test Date: 2024-12-20 04:14:44 Measurements Intervals [place] Rate: 62 P: 59 AL: 159 QRS: -72 QRSD: 141 T: 87 QT: 419 QTc: 429 Interpretive Statements SINUS RHYTHM RIGHT BUNDLE BRANCH BLOCK LEFT ANTERIOR FASCICULAR BLOCK LEFT VENTRICULAR HYPERTROPHY AND ST-T CHANGE CANNOT R/O SEPTAL INFARCT, AGE INDETERMINATE CONSIDER HIGH LATERAL INFARCT, AGE INDETERMINATE BASELINE ARTIFACT- I, II, AVR ABNORMAL ECG Compared to ECG 06/01/2024 17:25:37 NO SIGNIFICANT CHANGE Electronically Signed On 12-20-2024 06:13:08 CDT by Chu Yo D.O.
--- OUTSIDE RECORDS SUMMARY | 2024-12-20 04:01 | XMS_ITS | Clinical Summary ---
Author Organization [facility] Address [address] [place] [phone] Care Team Providers Care Social Worker Psychiatric Name Role Phone Jian Iverson MD Primary Care Provider [phone] Allergies Active Allergy Reactions Criticality Noted Date [...] Date Smoking Tobacco: Every Day Cigarettes 1 52.6 Started: 1972 Tobacco Cessation:Ready to Q uit: Not Asked; Counseling Given: Not Answered Personal Safety Answer Date Recorded Getting School Help Needed Not on file 04/30 Sex and Gender Information Value Date Recorded Sex Assigned at Not on file Legal Sex Male 2:25 AM COD CLERK Gender Identity Not on file Sexual Orientation Not on file Obstetrics History Last Filed Vital Signs Vital Sign Reading Time Taken Comments Blood Pressure 120/70 08/10/2023 10:52 AM CDT Pulse 60 08/10/2023 10:52 AM CDT Temperature 36.7 C (98 F) 08/28/2015 3:14 PM CDT Respiratory Rate - - Oxygen Saturation 97% 08/10/2023 10:52 AM CDT Inhaled Oxygen Concentration - - Weight 77.6 kg (171 lb) 08/10/2023 10:52 AM CDT Height 180.3 cm (5' 11) 08/28/2015 3:14 PM CDT Body Mass Index 23.85 08/28/2015 3:14 PM CDT Plan of Treatment Health Maintenance Due Date Last Done Comments Colon Cancer Screening-Colonoscopy 1959 Depression Screening 1959 Fall Risk Assessment 1959 DTaP/Tdap/Td Vaccine (1 - Tdap) 12/10/1970 Hepatitis B Screening 12/10/1977 Pneumococcal vaccine 65+ (1 of 2 - PCV) 12/10/1978 Zoster Vaccine (1 of 2) 12/10/2009 Prostate Cancer Screening-PSA 08/24/2024 08/24/2022, 06/18/2014 Abdominal Aortic Aneurysm (A AA) Screen 12/10/2024 02/02/2015 Well Visit 65+ 12/10/2024 Influenza Vaccine (#1) 2025 Hepatitis C Screening Completed 07/07/2018 , 05/25/2017, 05/25/2017, Additional history exists Procedures Procedure Name Priority Date/Time Associated Diagnosis Comments PSA, TOTAL AND FREE Routine 08/24/2022 1 1:41 AM CDT HEPATITIS C RNA, QUANTITATIVE, PCR Routine 07/07/2018 11:[address] ABDOMEN PELVIS WO CONTRAST Routine 02/02/2015 12:00 AM CDT from Last 3 Months or Most Recently Relevant to Health Maintenance Results * PSA, total and free (08/24/2022 11:41 AM CDT) PSA-free 0.2 ng/mL [facility] PSA-Total 0.99 <=4.5 ng/mL [facility] CHANEY PSA-Free/Total Ratio See Footnote BOBBI CHANEY Comment: Ratio not calculated because clinical usefulness is not defined except in range of total PSA [...] absence of malignant disease. Test Performed by: [facility] [address] [place] [address] Ampoule Sealer: Isidro Saxena M.D. Ph.D.; CLIA# [id number] Blood 08/24/2022 11:4 1 AM CDT 08/24/2022 11:55 AM CDT Jian Iverson MD LAB BLOOD ORDERABLES Final Resu lt [facility] [address] [facility] Department of Laboratories [place], [place] [id number] * Hepatitis C (HCV) RNA PCR, quantitative (07/07/2018 11:43 AM COD CLERK) HCV RNA IU/mL Not Detected IU/mL 07/09/2018 4:[address] [facility] HISTORICAL RESULTS HCV RNA log IU/mL Not Detected log IU/mL 07/09/2018 4:[address] [facility] HISTORICAL RESULTS HCV quant by NAAT interp Not Detected Not Detected 07/09/2018 4:[address] [facility] HISTORICAL RESULTS Comment: INTERPRETIVE INFORMATION: HCV by Quantitative NAAT Normal range for this assay is Not Detected. The quantitative range of this assay is 10 - 100,000,000 IU/mL (1.0 - 8.0 log IU/mL). Lower limit of quantitation (LLoQ): 10 IU/mL (1.0 log IU/mL) LLoQ values do not apply to diluted specimens. A result of Not Detected does not rule out the presence of inhibitors in the patient specimen or hepatitis C virus RNA concentrations below the level of detection of the test. Care should be taken when interpreting any single viral load determination. This test should not be used for blood donor screening, associated re-entry protocols, or for screening Human Cell, Tissues and Cellular Tissue-Based Products (HCT/P). Performed by [facility], [address] [place] [address], [facility] [place] [address] [email or web address], Kristian Farley MD, Lab. Director 07/07/2018 11:4 3 AM COD CLERK 07/07/2018 12:24 PM COD CLERK us Nishant Evans MD LAB MICROBIOLOGY - GENERAL ORDERABLES Final Result [facility] HISTORICAL RESULTS * CT Abdomen Pelvis WO Contrast (02/02/2015 12:00 AM CDT) Anatomical Region Laterality Modality Body N/A Computed Tomogra phy 02/02/2015 Narrative 02/02/2015 11:[address] scan the abdomen pelvis. HISTORY: Abdominal pain and diarrhea. Diverticulitis. Findings: Lung bases are clear. No concerning liver mass is present. Spleen is within normal limits. There is minimal nonobstructing right-side nephrolithiasis and there is also left-sided nephrolithiasis and no hydronephrosis noted. The pancreas is within normal limits. There is no retroperitoneal adenopathy present. No bowel obstruction.. Diverticulosis is present without diverticulitis. No pelvic mass present. No free air is present. There is prostate calcification noted. Images of the bones demonstrate a early osteoarthritic changes. There is no CT evidence of appendicitis. Impression: Diverticulosis without diverticulitis. No abscess or free fluid is present. Non-obstructing bilateral nephrolithiasis. THIS IS AN ELECTRONICALLY VERIFIED REPORT 02/02/2015 11:14 AM: Darwin Galvez M.D. Darwin Galvez M.D. NC:rusty 11:14 AM 11:14 AM [facility] [EOD] Procedure Note Provider, MD Cruzito - 10/01/[address] scan the abdomen pelvis. HISTORY: Abdominal pain and diarrhea. Diverticulitis. Findings: Lung bases are clear. No concerning liver mass is present. Spleen is within normal limits.There is minimal nonobstructing right-side nephrolithiasis and there is also left-sided nephrolithiasis and no hydronephrosis noted. The pancreas iswithin normal limits. There is no retroperitoneal adenopathy present. No bowel obstruction.. Diverticulosis is present without diverticulitis. No pelvic mass present.No free air is present. There is prostate calcification noted. Images ofthe bones demonstrate a early osteoarthritic changes. There is no CT evidenceof appendicitis. Impression: Diverticulosis without diverticulitis. No abscess or freefluid is present. Non-obstructing bilateral nephrolithiasis. THIS IS AN ELECTRONICALLY VERIFIED REPORT 02/02/2015 11:14 AM: Darwin Galvez M.D. Darwin Galvez M.D. NC:rusty 11:14 AM 11:14 AM [facility] [EOD] Historical Provider MD JIANG CT PROCEDURES Final R esult from Last 3 Months or Most Recently Relevant to Health Maintenance Insurance [facility] Care Teams Social Worker Psychiatric Relationship Specialty Start Date End Date Jian Iverson MD PCP - General Family Medicine 08/24/22
--- OUTSIDE RECORDS SUMMARY | 2024-12-20 04:01 | XMS_ITS | Referral Summary ---
Author Organization [facility] Address [address] [place] [id number] Care Team Providers Care First Assist Name Role Phone Jian Iverson MD Primary Care Provider [phone] Allergies Active Allergy Reactions Criticality Noted Date [...] on file Legal Sex Male 2:25 AM EMBEDDED PROCESSOR Gender Identity Not on file Sexual Orientation [...] RNA, QUANTITATIVE, PCR Routine 07/07/2018 11:[address] ABDOMEN PELVIS WO CONTRAST Routine 02/02/2015 [...] absence of malignant disease. Test Performed by: [id number] [place] [address] Anesthesia Tech: Isidro Saxena M.D. Ph.D.; CLIA# [id number] Blood 08/24/2022 11:4 1 AM CDT 08/24/2022 11:55 AM CDT us Jian Iverson MD LAB BLOOD ORDERABLES Final Resu lt BOBBI [address] [facility] Department [place] [address] * Hepatitis C (HCV) RNA PCR, quantitative (07/07/2018 11:43 AM EMBEDDED PROCESSOR) Pathologist [facility] HCV RNA IU/mL Not Detected IU/mL HCV [...] and Cellular Tissue-Based Products (HCT/P). Performed by [employer], [address] [place] [id number] [email or web address], Kristian Farley MD, Lab. Director 07/07/2018 11:4 3 AM EMBEDDED PROCESSOR 07/07/2018 12:24 PM EMBEDDED PROCESSOR us Nishatn Evans MD LAB MICROBIOLOGY - GENERAL ORDERABLES Final Result Performing Organization Address City/[facility]/ZIP Co de Phone Number [facility] HISTORICAL RESULTS * CT Abdomen Pelvis [...] Galvez M.D. NC:rusty 11:14 AM 11:14 AM [facility] [EOD] Procedure Note Provider, MD Cruzito - [...] Galvez M.D. NC:rusty 11:14 AM 11:14 AM [facility] [EOD] us Historical Provider MD JIANG CT PROCEDURES Final R esult from Last 3 Months or Most Recently Relevant to Health Maintenance Insurance [facility] Care Teams First Assist Relationship Specialty Start Date End Date Jian Iverson MD PCP - General Family Medicine 08/24/22
[2024-12-20 04:29] LABS: Hematocrit 45.5 % (42.0-52.0); Hemoglobin 15.3 g/dL (14.0-18.0); Immature Granulocyte Percent A 0.7 % (0-0.5); Lymphocytes Absolute Auto 2.09 K/mm3 (0.9-3.2); Mean Corpuscular HGB Conc 33.6 g/dl (32-36); Mean Corpuscular Hemoglobin 32.8 pg (26-34); Mean Corpuscular Volume 97.6 fl (80-100); Nucleated Red Blood Cells Absolute Auto 0.000 K/mm3 (0.0-0.012); Nucleated Red Blood Cells Perc 0.0 % (0.0-0.2); Platelet Count Result 188 k/mm3 (150-375); Red Blood Count 4.66 M/mm3 (4.6-6.20); White Blood Count 11.9 K/mm3 (4.5-10.0)
[2024-12-20 04:40] LABS: INR 1.0; Prothrombin Time 12.8 Seconds (11.1-14.7)
[2024-12-20 04:41] LABS: Partial Thromboplastin Time 33.9 Seconds (22.3-36.8)
[2024-12-20 05:15] LABS: Alanine Aminotransferase 17 U/L (6-50); Albumin Level 4.6 g/dL (3.5-5.1); Alkaline Phosphatase 82 U/L (38-126); Anion Gap 10 mmol/L (4-12); Aspartate Amino Transferase 26 U/L (17-59); Bilirubin,Total 0.3 mg/dL (0.2-1.3); Blood Urea Nitrogen 15 mg/dL (9-20); Calcium 9.9 mg/dL (8.4-10.2); Carbon Dioxide 24 mmol/L (22-30); Chloride 104 mmol/L (98-107); Estimated CRCL calculation 64 ml/min; Estimated Glomerular Filt Rate > 60; Glucose 103 mg/dL (65-110); Lipase 66 U/L (23-300); Potassium 4.1 mmol/L (3.4-5.0); Sodium 138 mmol/L (137-145); Total Protein 8.1 g/dL (6.3-8.2)
[2024-12-20 05:29] LABS: Troponin I 0.283 ng/mL (0.000-0.034)
--- NOTE | 2024-12-20 07:09 | PC.NURSE ---
assumed care of pt from LUIGI Herbert. pt resting on stretcher, requesting blanket at this time. pt in no distress, states he is in no pain. informed we are waiting on 3 hour troponin and for edp to review labs/imaging. pt verbalized understanding
--- NOTE | 2024-12-20 07:25 | ECG_ITS ---
Test Date: 2024-12-20 07:30:21 Measurements Intervals [place] Rate: 58 P: 62 DC: 157 QRS: -67 QRSD: 142 T: 86 QT: 428 QTc: 424 Interpretive Statements SINUS BRADYCARDIA RIGHT BUNDLE BRANCH BLOCK LEFT ANTERIOR FASCICULAR BLOCK VOLTAGE CRITERIA FOR LVH CANNOT R/O SEPTAL INFARCT, AGE INDETERMINATE MODERATE T-WAVE ABNORMALITY, CONSIDER ANTERIOR ISCHEMIA ABNORMAL ECG Compared to ECG 12/20/2024 04:14:44 T-wave abnormality now present Possible ischemia now present Electronically Signed On 12-20-2024 07:46:32 CDT by Chu Yo D.O.
--- NOTE | 2024-12-20 07:32 | ED.GENADULT ---
HPI - General Adult General Chief complaint: Chest Pain Stated complaint: chest pain, throbbing in right arm, sob Time Seen by Provider: 12/20/24 07:02 History of Present Illness HPI narrative: Patient is a 64-year-old male who presents ER with chest pain. Left-sided. Began at 5:00 p.m. yesterday. Reports that it is sharp and 7/10 in intensity. Radiates down the left arm where there is throbbing. Worse with physical exertion. Better with rest. No loss of consciousness. No history of GA in the past. Reports today earlier he had had some pain in his left jaw but thought it was from eating something wrong. Related Data Home Medications ?Medication ?Instructions ?Recorded ?Confirmed ?Last Taken ?Type mirtazapine 45 mg tablet 45 mg PO HS PRN sleep 06/01/24 06/01/24 Unknown History sertraline 100 mg tablet 200 mg PO DAILY 06/01/24 06/01/24 Unknown History Allergies Allergy/AdvReac Type Severity Reaction Status Date / Time amoxicillin Allergy Severe Swelling Verified 06/01/24 16:29 of Lip/Tongue/Throat Iodinated Contrast Media Allergy Swelling Verified 06/01/24 16:29 of Lip/Tongue/Throat PMFSH Past Medical History Medical History Tobacco abuse Family History Family History Father Cerebrovascular accident Acute myocardial infarction Mother Diabetes mellitus Hypertension Congestive heart failure History of blood clots Cerebrovascular accident Other Acute myocardial infarction Afib Social History Social History Social History: Surrogate medical decision maker: Hannah Chauhan, mother. Code status: Full code. Smoking packs per day: 1 Smoking cigarettes per day: 20.0 Years smoked: 50 Smoking pack-years: 50.00 Smoking status: Current every day smoker Tobacco type: cigarettes Alcohol intake: never Substance use: never Substance use type: does not use Do You Feel Safe in your Home?: Yes Lack of Transportation: No Lack of Food: Never True Current Housing: I Have Housing Concerned About Future Housing: No Difficulty Paying Gas/Electric Bills: No Difficulty Paying for Meds: No Currently Unemployed: No Education: Grade School Difficulty w/ Childcare or Family Care: No Spiritual care concerns: No Course Course Emergency Course: discussed with Dr. Solo. Heparin gtt started. Admit to hospitalist. Patient received ASA. He did have CP that resolved with nitro. Vital Signs Vital signs: Vital Signs Pulse Rate 69 12/20/24 04:18 Respiratory Rate 13 12/20/24 04:18 Blood Pressure 127/73 12/20/24 04:18 Pulse Oximetry 97 12/20/24 04:18 Temperature 97.9 F 12/20/24 07:55 Pulse Rate 68 12/20/24 07:55 Respiratory Rate 14 12/20/24 07:55 Blood Pressure 126/71 12/20/24 07:55 Pulse Oximetry 95 12/20/24 07:55 Oxygen Delivery Room Air 12/20/24 07:10 Medical Decision Making Vital Signs Vital Signs: Vital Signs Pulse Rate 69 12/20/24 04:18 Respiratory Rate 13 12/20/24 04:18 Blood Pressure 127/73 12/20/24 04:18 Pulse Oximetry 97 12/20/24 04:18 Temperature 97.9 F 12/20/24 07:55 Pulse Rate 68 12/20/24 07:55 Respiratory Rate 14 12/20/24 07:55 Blood Pressure 126/71 12/20/24 07:55 Pulse Oximetry 95 12/20/24 07:55 Oxygen Delivery Room Air 12/20/24 07:10 Lab Data 12/20/24 04:17 12/20/24 04:17 Labs: Lab Results 12/20/24 12/20/24 Range/Units 04:17 06:55 WBC 11.9 H (4.5-10.0) K/mm3 RBC 4.66 (4.6-6.20) M/mm3 Hgb 15.3 D (14.0-18.0) g/dL Hct 45.5 (42.0-52.0) % MCV 97.6 (80-100) fl MCH 32.8 (26-34) pg MCHC 33.6 (32-36) g/dl RDW 13.3 (11.5-14.5) % Plt Count 188 (150-375) k/mm3 MPV 9.8 (7.4-10.4) fl Immature Gran % (Auto) 0.7 H (0-0.5) % Neut % (Auto) 72.5 (45.5-73.1) % Lymph % (Auto) 17.6 L (18.3-44.2) % Maries % (Auto) 7.4 (2.6-8.5) % Eos % (Auto) 1.5 (0-4.4) % Baso % (Auto) 0.3 (0.2-1.2) % Lymph # (Auto) 2.09 (0.9-3.2) K/mm3 Maries # (Auto) 0.9 H (0.1-0.6) K/mm3 Eos # (Auto) 0.2 (0-0.3) K/mm3 Baso # (Auto) 0.0 (0.0-0.1) K/mm3 Abs Immat Gran (auto) 0.08 H (0.00-0.031) K/mm3 Absolute Neuts (auto) 8.6 H (1.3-6.7) K/mm3 Absolute Nucleated RBC 0.000 (0.0-0.012) K/mm3 Nucleated RBC % 0.0 (0.0-0.2) % PT 12.8 (11.1-14.7) Seconds INR 1.0 APTT 33.9 (22.3-36.8) Seconds Sodium 138 (137-145) mmol/L Potassium 4.1 (3.4-5.0) mmol/L Chloride 104 (98-107) mmol/L Carbon Dioxide 24 (22-30) mmol/L Anion Gap 10 (4-12) mmol/L BUN 15 (9-20) mg/dL Creatinine 1.09 (0.7-1.3) mg/dL Estim Creat Clear Calc 64 ml/min Estimated GFR > 60 (59 - ) Glucose 103 (65-110) mg/dL Calcium 9.9 (8.4-10.2) mg/dL Total Bilirubin 0.3 (0.2-1.3) mg/dL AST 26 (17-59) U/L ALT 17 (6-50) U/L Alkaline Phosphatase 82 (38-126) U/L Troponin I 0.283 H* 1.760 H* D (0.000-0.034) ng/mL Total Protein 8.1 (6.3-8.2) g/dL Albumin 4.6 (3.5-5.1) g/dL Lipase 66 (23-300) U/L Imaging Data Radiologist's impression: ITS Impressions Chest X-Ray 12/20/24 05:49 Impression: Normal chest. ECG Data EKG #1: ECG completion date: 12/20/24 ECG completion time: 04:14 EKG Interpretation: normal rate (62), sinus rhythm, non-specific ST changes and RBBB Critical Care Time Critical Care Time Critical Care Time: Yes Total Critical Care Time: 35 Discharge Plan Discharge Clinical Impression: Non-ST elevation GA (NSTEMI) Patient Disposition: Still a Patient Condition: Stable Patient Language: Spanish Prescriptions: No Action metoprolol succinate 25 mg tablet extended release 24 hr 25 mg PO DAILY Qty: 30 1RF mirtazapine 45 mg tablet 45 mg PO HS PRN (Reason: sleep) sertraline 100 mg tablet 200 mg PO DAILY fluticasone propion-salmeterol [Advair HFA] 45-21 mcg/actuation Hfa Aerosol Inhaler 2 puff inhalation Q12HRT Qty: 1 0RF levofloxacin 750 mg tablet 750 mg PO DAILY Qty: 2 0RF albuterol sulfate [Ventolin HFA] 90 mcg/actuation HFA aerosol inhaler 2 puff inhalation QID PRN (Reason: shortness of breath or wheezing) Qty: 8.5 1RF dexamethasone 6 mg tablet 6 mg PO DAILY Qty: 7 0RF
--- OUTSIDE RECORDS SUMMARY | 2024-12-20 07:34 | XMS_ITS | Clinical Summary ---
Author Organization 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 Test Performed by: [facility] [address] [place] [address] Physical Therapy Supervisor: Isidro Saxena M.D. Ph.D.; CLIA# [id number] Blood 08/24/2022 11:4 1 AM CDT 08/24/2022 11:55 AM CDT Jian Iverson MD LAB BLOOD ORDERABLES Final Resu lt BOBBI [address] [facility] Department of Laboratories [place], [place] [id number] * Hepatitis C (HCV) RNA PCR, quantitative (07/07/2018 11:43 AM ROUGHER HELPER) HCV RNA IU/mL Not Detected IU/mL HCV [...] and Cellular Tissue-Based Products (HCT/P). Performed by [email or web address], [address] [place] [address], [facility] [address] [email or web address], Kristian Farley MD, Lab. Director 07/07/2018 11:4 3 AM ROUGHER HELPER 07/07/2018 12:24 PM ROUGHER HELPER us Nishant Evans MD LAB MICROBIOLOGY - GENERAL ORDERABLES Final Result [facility] HISTORICAL RESULTS * CT Abdomen Pelvis WO [...] Galvez M.D. NC:rusty 11:14 AM 11:14 AM [facility] [EOD] Procedure Note Provider, MD [...] Galvez M.D. NC:rusty 11:14 AM 11:14 AM [facility] [EOD] Historical Provider MD JIANG CT PROCEDURES Final R esult from Last 3 Months or Most Recently Relevant to Health Maintenance Insurance [facility] Care Teams Automotive Sales Executive Relationship Specialty Start Date End Date Jian Iverson MD PCP - General Family Medicine 08/24/22
--- OUTSIDE RECORDS SUMMARY | 2024-12-20 07:34 | XMS_ITS | Referral Summary ---
Author Organization [facility] Address [address] [place] [phone] Care Team Providers Care Fitness Trainer Name Role Phone Jian Iverson MD Primary Care Provider [phone] Allergies Active Allergy Reactions Criticality Noted Date [...] on file Legal Sex Male 2:25 AM AIR INTELLIGENCE OFFICER Gender Identity Not on file Sexual Orientation [...] RNA, QUANTITATIVE, PCR Routine 07/07/2018 11:43 AM AIR INTELLIGENCE OFFICER CT ABDOMEN PELVIS WO CONTRAST Routine 02/02/2015 [...] absence of malignant disease. Test Performed by: [id number] [place] [address] Rubber Cutter And Shape Carver: Isidro Saxena M.D. Ph.D.; CLIA# [id number] Blood 08/24/2022 11:4 1 AM CDT 08/24/2022 11:55 AM CDT us Jian Iverson MD LAB BLOOD ORDERABLES Final Resu lt [facility]OBBI [address] [facility] Department [place] [address] * Hepatitis C (HCV) RNA PCR, quantitative (07/07/2018 11:43 AM AIR INTELLIGENCE OFFICER) Pathologist [facility] HCV RNA IU/mL Not Detected IU/mL 07/09/2018 4:08 PM AIR INTELLIGENCE OFFICER [facility] HISTORICAL RESULTS HCV RNA log IU/mL [...] and Cellular Tissue-Based Products (HCT/P). Performed by [employer], [address] [place] [id number] [email or web address], Kristian Farley MD, Lab. Director 07/07/2018 11:4 3 AM AIR INTELLIGENCE OFFICER 07/07/2018 12:24 PM AIR INTELLIGENCE OFFICER us Nishant Evans MD LAB MICROBIOLOGY - GENERAL ORDERABLES Final Result Performing Organization Address City/[facility]/ZIP Co de Phone Number [facility] HISTORICAL RESULTS * CT Abdomen Pelvis [...] Galvez M.D. NC:rusty 11:14 AM 11:14 AM [facility] [EOD] Procedure Note Provider, MD Cruzito - [...] Most Recently Relevant to Health Maintenance Insurance [facility] Care Teams Fitness Trainer Relationship Specialty Start Date End Date Jian Iverson MD PCP - General Family Medicine 08/24/22
[2024-12-20] MEDS: ASPIRIN 81 MG CHEWABLE TABLET 324 MG PO (07:39)
[2024-12-20] MEDS: NITROGLYCERIN SL 0.4 MG TABLET SUBLINGUAL (07:43)
[2024-12-20 07:45] LABS: Troponin I 1.760 ng/mL (0.000-0.034)
[2024-12-20] MEDS: HEPARIN SOD/D5W 100 UNITS/ML 25,000 UNITS/250 ML BAG 10 UNITS IV CONT (07:51)
--- OUTSIDE RECORDS SUMMARY | 2024-12-20 08:34 | XMS_ITS | Clinical Summary ---
Author Organization [facility] Address [address] [place] [phone] Care Team Providers Care Tilting Saw Operator Name Role Phone Jian Iverson MD Primary Care Provider [phone] Allergies Active Allergy Reactions Criticality Noted Date [...] on file Legal Sex Male 2:25 AM VICE PRESIDENT BUSINESS DEVELOPMENT Gender Identity Not on file Sexual Orientation [...] RNA, QUANTITATIVE, PCR Routine 07/07/2018 11:43 AM VICE PRESIDENT BUSINESS DEVELOPMENT CT ABDOMEN PELVIS WO CONTRAST Routine 02/02/2015 [...] absence of malignant disease. Test Performed by: [facility] [address] [place] [address] Bottle Washer Machine: Iisdro Saxena M.D. Ph.D.; CLIA# [id number] Blood 08/24/2022 11:4 1 AM CDT 08/24/2022 11:55 AM CDT Jian Iverson MD LAB BLOOD ORDERABLES Final Resu lt [facility]OBBI [address] [facility] Department of Laboratories [place], [place] [id number] * Hepatitis C (HCV) RNA PCR, quantitative (07/07/2018 11:43 AM VICE PRESIDENT BUSINESS DEVELOPMENT) HCV RNA IU/mL Not Detected IU/mL HCV [...] and Cellular Tissue-Based Products (HCT/P). Performed by [employer], [address] [place] [address], [facility] [place] [address] [email or web address], Kristian Farley MD, Lab. Director 07/07/2018 11:4 3 AM VICE PRESIDENT BUSINESS DEVELOPMENT 07/07/2018 12:24 PM VICE PRESIDENT BUSINESS DEVELOPMENT us Nishant Evans MD LAB MICROBIOLOGY - GENERAL ORDERABLES Final Result [facility] HISTORICAL RESULTS * CT Abdomen Pelvis WO [...] Galvez M.D. NC:rusty 11:14 AM 11:14 AM [facility] [EOD] Procedure Note Provider, MD Cruzito [...] Galvez M.D. NC:rusty 11:14 AM 11:14 AM [facility] [EOD] Historical Provider MD JIANG CT PROCEDURES Final R esult from Last 3 Months or Most Recently Relevant to Health Maintenance Insurance [facility] Care Teams Tilting Saw Operator Relationship Specialty Start Date End Date Jian Iverson MD PCP - General Family Medicine 08/24/22
--- NOTE | 2024-12-20 08:38 | ADMGEN ---
This patient, Terrance Chauhan, was admitted to IMU Room 205-02. Patient/family oriented to hospital policies and general routines including ID bracelet, bed and alarms, visiting hours, pain management, procedures, bathroom and other care routines, personal items, smoking policy, room service/diet, and visiting hours. Information on how to activate the Rapid Response Team has been discussed. Patient/Family are encouraged to report perceived risks to care and to ask questions if they do not understand what they are told or what they should do.
[2024-12-20 10:30] LABS: Troponin I 3.970 ng/mL (0.000-0.034)
--- NOTE | 2024-12-20 14:22 | P.CONCA_ITS ---
Assessment and Plan Assessment and plan (1) Non-ST elevation PA (NSTEMI): Code(s): I21.4 - Non-ST elevation (NSTEMI) myocardial infarction Status: Acute Plan This is a 64-year-old man with a previous history of paroxysmal atrial fib and chronic heavy tobacco use. He presents now with acute coronary syndrome significant ischemic chest pain that was going on yesterday evening following which there was moderate troponin rise. His ECG does not show any acute ischemic changes his bifascicular block is not new. In this situation he should undergo diagnostic angiography. He is appropriate been placed on a heparin drip in the emergency room. He should also be treated with aspirin and statins. He is bradycardic so I am not going to start a beta-olive at this time. Obviously I spoke to the gentleman at some length about the importance of smoking cessation. I will see start steroid pretreatment this evening for anticipation for coronary angiogram tomorrow Cordell Solo MD [facility] History of Present Illness History of Present Illness Consult date/time: 12/20/24 14:22 Reason For Visit: NSTEMI Narrative: This is a 64-year-old man I am seeing at the request of the hospitalist this afternoon because of apparent non ST elevation PA. He is not known to have coronary disease prior to this. He came to the emergency room this morning because of significant pain that he was having yesterday. He states starting about 5:00 p.m. yesterday while he was at home he was having a dull burning sharp like pain in the left precordium that radiated into the medial aspect of his left arm down to the almost to the wrist. He had this symptom consistently for a number of hours it would wax and wane but did not resolve. It finally resolved in the credit control manager hours today he was is feeling poorly after this episode and decided he should come to the emergency room for evaluation. He had 2 electrocardiograms down there which shows sinus rhythm with bifascicular block without any acute ischemic changes and his bifascicular block is not new based on prior tracings. His troponin levels however were found to be elevated at 0.7, 1.2 and then 3.9. He does not have any complaints currently intravenous heparin is running telemetry shows sinus bradycardia. He was resting comfortably in bed when I came in the room to see him. He does have a history of atrial fibrillation he saw my partner Dr. RAMOS in consultation for this in 2023. His atrial fibrillation was self-limited and he was placed on beta- olive therapy with metoprolol. He did not follow up in the office after that event. It sounds like he is not likely to follow-up with medical care recommendations up until this point in his life. He is a heavy cigarette smoker for about 50 years. He denies any history of hypertension diabetes or dyslipidemia. Review of Systems 2 Constitutional: Constitutional: Reports lethargy Eyes: Eyes: Reports no additional eye complaints ENT: Reports system reviewed and no additional complaints, except as documented Cardiovascular: Cardiovascular: Reports as per HPI Respiratory: Respiratory: Reports dyspnea on exertion Gastrointestinal: Gastrointestinal: Reports no additional gastrointestinal complaints Musculoskeletal: Musculoskeletal: Reports back pain Integumentary/Breasts: Skin/Breast: Reports system reviewed and no additional complaints, except as docu Neurologic: Reports system reviewed and no additional complaints, except as documented Endocrine: Endocrine: Reports no additional endocrine complaints Hematologic/Lymphatic: Hematologic/Lymphatic: Reports no additional hematologic/lymphatic complaints Allergic/Immunologic: Allergic/Immunologic: Reports no additional allergic/immunologic complaints [facility] Past Medical History Medical History Tobacco abuse Family History Family History (Updated 12/20/24 @ 11:25 by JODY CRENSHAW) Father Acute myocardial infarction Cerebrovascular accident Mother History of blood clots Diabetes mellitus Congestive heart failure Hypertension Cerebrovascular accident Other Acute myocardial infarction Afib Grandparent Afib Social History Social History Social History: Surrogate medical decision maker: Hannah Chauhan, mother. Code status: Full code. Smoking packs per day: 1 Smoking cigarettes per day: 20.0 Years smoked: 50 Smoking pack-years: 50.00 Smoking status: Current every day smoker Tobacco type: cigarettes Alcohol intake: never Substance use: never Substance use type: does not use Do You Feel Safe in your Home?: Yes Lack of Transportation: No Lack of Food: Never True Current Housing: I Have Housing Concerned About Future Housing: No Difficulty Paying Gas/Electric Bills: No Difficulty Paying for Meds: No Currently Unemployed: No Education: Grade School Difficulty w/ Childcare or Family Care: No Spiritual care concerns: No Meds Home Medications and Allergies Home Medications ?Medication ?Instructions ?Recorded ?Confirmed ?Type mirtazapine 45 mg tablet 45 mg PO HS PRN sleep 06/01/24 12/20/24 History sertraline 100 mg tablet 200 mg PO DAILY 06/01/24 12/20/24 History albuterol sulfate 90 mcg/actuation 2 puff inhalation QID PRN 06/05/24 12/20/24 Rx aerosol inhaler (Ventolin HFA) shortness of breath or wheezing #8.5 grams fluticasone propionate 45 2 puff inhalation Q12HRT #1 g 06/05/24 12/20/24 Rx mcg-salmeterol 21 mcg/actuation HFA inhaler (Advair HFA) pantoprazole 40 mg tablet,delayed 80 mg PO DAILY 12/20/24 12/20/24 History release penicillin V potassium 500 mg 500 mg PO Q12H 12/20/24 12/20/24 History tablet Allergies Allergy/AdvReac Type Severity Reaction Status Date / Time amoxicillin Allergy Severe Swelling Verified 06/01/24 16:29 of Lip/Tongue/Throat Iodinated Contrast Media Allergy Swelling Verified 06/01/24 16:29 of Lip/Tongue/Throat Vital Signs Vital Signs - 24 hr 12/20/24 04:18 12/20/24 04:18 12/20/24 04:46 Temperature Pulse Rate 69 67 61 Respiratory Rate 13 13 Blood Pressure 127/73 118/76 Pulse Oximetry 97 94 Oxygen Delivery 12/20/24 05:01 12/20/24 05:16 12/20/24 05:31 Temperature Pulse Rate 59 L 65 59 L Respiratory Rate 14 18 18 Blood Pressure 120/77 131/84 122/75 Pulse Oximetry 94 95 95 Oxygen Delivery 12/20/24 05:46 12/20/24 07:10 12/20/24 07:10 Temperature 36.7 C Pulse Rate 57 L 68 Respiratory Rate 20 21 H Blood Pressure 130/79 119/71 Pulse Oximetry 94 96 96 Oxygen Delivery Room Air 12/20/24 07:55 12/20/24 08:35 12/20/24 08:47 Temperature 36.6 C 36.6 C 36.8 C Pulse Rate 68 57 L 69 Respiratory Rate 14 16 16 Blood Pressure 126/71 114/66 126/76 Pulse Oximetry 95 97 95 Oxygen Delivery 12/20/24 10:00 12/20/24 12:00 12/20/24 12:00 Temperature 36.4 C L Pulse Rate 55 L 58 L 53 L Respiratory Rate 18 Blood Pressure 111/67 Pulse Oximetry 100 Oxygen Delivery Exam 2 Const: General: comfortable and no acute distress Other: Well-developed well-nourished white male appears to be his stated age no distress at this time HENMT: Mouth: Yes moist mucous membranes Eyes: Sclera: sclerae normal Neck: Neck: supple and no JVD Resp: Effort & Inspection: normal respiratory effort Auscultation: clear to auscultation bilaterally Cardio: Rate: regular rate Rhythm: regular rhythm Other: No audible cardiac murmur at this time GI: GI Palp: Yes Soft to palpation Auscultation: normal bowel sounds Skin: General skin exam: normal color Neuro: Other: Alert and oriented x3 Extrem: Other: No edema, good perfusion Results Labs and Meds 12/20/24 04:17 12/20/24 04:17 Lab results: Cardiac Enzymes 12/20/24 12/20/24 12/20/24 Range/Units 04:17 06:55 09:53 AST 26 (17-59) U/L Troponin I 0.283 H* 1.760 H* D 3.970 H* D (0.000-0.034) ng/mL Coagulation 12/20/24 Range/Units 04:17 PT 12.8 (11.1-14.7) Seconds APTT 33.9 (22.3-36.8) Seconds CBC 12/20/24 Range/Units 04:17 WBC 11.9 H (4.5-10.0) K/mm3 RBC 4.66 (4.6-6.20) M/mm3 Hgb 15.3 D (14.0-18.0) g/dL Hct 45.5 (42.0-52.0) % Plt Count 188 (150-375) k/mm3 Lymph # (Auto) 2.09 (0.9-3.2) K/mm3 [place] # (Auto) 0.9 H (0.1-0.6) K/mm3 Eos # (Auto) 0.2 (0-0.3) K/mm3 Baso # (Auto) 0.0 (0.0-0.1) K/mm3 Comprehensive Metabolic Panel 12/20/24 Range/Units 04:17 Sodium 138 (137-145) mmol/L Potassium 4.1 (3.4-5.0) mmol/L Chloride 104 (98-107) mmol/L Carbon Dioxide 24 (22-30) mmol/L BUN 15 (9-20) mg/dL Creatinine 1.09 (0.7-1.3) mg/dL Glucose 103 (65-110) mg/dL Calcium 9.9 (8.4-10.2) mg/dL AST 26 (17-59) U/L ALT 17 (6-50) U/L Alkaline Phosphatase 82 (38-126) U/L Total Protein 8.1 (6.3-8.2) g/dL Albumin 4.6 (3.5-5.1) g/dL Patient Weight 12/20/24 23:59 Weight 81.3 kg
[2024-12-20 14:53] LABS: Partial Thromboplastin Time 56.6 Seconds (22.3-36.8)
--- NOTE | 2024-12-20 16:11 | PM.IMHP ---
H&P: HPI History of Present Illness Date/Time: 12/20/24 16:11 Chief Complaint: Chest pain Narrative: 64 yo M with pMH of COPD presented to [facility] ER on account of chest pain. Noted symptoms started yesterday at about 5 pm, left sided stabbing pain with radiation to the Left arm, 8/10 in intensity. Denies any SOB, vomiting, abd pain, diarrhea, focal symptoms. ER eval ntoable for NC 55 EKG no acute changes labs notable for WBC 11.9, Troponin 1.76 repeat 3.97. CXR no acute changes Review of Systems Review of Systems: All other systems were reviewed and negative except as noted in the HPI above [facility] Past Medical History Medical History Tobacco abuse Family History Family History (Updated 12/20/24 @ 11:25 by JODY CRENSHAW) Father Acute myocardial infarction Cerebrovascular accident Mother History of blood clots Diabetes mellitus Congestive heart failure Hypertension Cerebrovascular accident Other Acute myocardial infarction Afib Grandparent Afib Social History Social History Social History: Surrogate medical decision maker: Hannah Chauhan, mother. Code status: Full code. Smoking packs per day: 1 Smoking cigarettes per day: 20.0 Years smoked: 50 Smoking pack-years: 50.00 Smoking status: Current every day smoker Tobacco type: cigarettes Alcohol intake: never Substance use: never Substance use type: does not use Do You Feel Safe in your Home?: Yes Lack of Transportation: No Lack of Food: Never True Current Housing: I Have Housing Concerned About Future Housing: No Difficulty Paying Gas/Electric Bills: No Difficulty Paying for Meds: No Currently Unemployed: No Education: Grade School Difficulty w/ Childcare or Family Care: No Spiritual care concerns: No Meds Home Medications and Allergies Home Medications ?Medication ?Instructions ?Recorded ?Confirmed ?Type mirtazapine 45 mg tablet 45 mg PO HS PRN sleep 06/01/24 12/20/24 History sertraline 100 mg tablet 200 mg PO DAILY 06/01/24 12/20/24 History albuterol sulfate 90 mcg/actuation 2 puff inhalation QID PRN 06/05/24 12/20/24 Rx aerosol inhaler (Ventolin HFA) shortness of breath or wheezing #8.5 grams fluticasone propionate 45 2 puff inhalation Q12HRT #1 g 06/05/24 12/20/24 Rx mcg-salmeterol 21 mcg/actuation HFA inhaler (Advair HFA) pantoprazole 40 mg tablet,delayed 80 mg PO DAILY 12/20/24 12/20/24 History release penicillin V potassium 500 mg 500 mg PO Q12H 12/20/24 12/20/24 History tablet Allergies Allergy/AdvReac Type Severity Reaction Status Date / Time amoxicillin Allergy Severe Swelling Verified 06/01/24 16:29 of Lip/Tongue/Throat Iodinated Contrast Media Allergy Swelling Verified 06/01/24 16:29 of Lip/Tongue/Throat Vital Signs Vital Signs - 24 hr 12/20/24 04:18 12/20/24 04:18 12/20/24 04:46 Temperature Pulse Rate 69 67 61 Respiratory Rate 13 13 Blood Pressure 127/73 118/76 Pulse Oximetry 97 94 Oxygen Delivery 12/20/24 05:01 12/20/24 05:16 12/20/24 05:31 Temperature Pulse Rate 59 L 65 59 L Respiratory Rate 14 18 18 Blood Pressure 120/77 131/84 122/75 Pulse Oximetry 94 95 95 Oxygen Delivery 12/20/24 05:46 12/20/24 07:10 12/20/24 07:10 Temperature 98.0 F Pulse Rate 57 L 68 Respiratory Rate 20 21 H Blood Pressure 130/79 119/71 Pulse Oximetry 94 96 96 Oxygen Delivery Room Air 12/20/24 07:55 12/20/24 08:35 12/20/24 08:47 Temperature 97.9 F 97.9 F 98.2 F Pulse Rate 68 57 L 69 Respiratory Rate 14 16 16 Blood Pressure 126/71 114/66 126/76 Pulse Oximetry 95 97 95 Oxygen Delivery 12/20/24 10:00 12/20/24 12:00 12/20/24 12:00 Temperature 97.5 F L Pulse Rate 55 L 58 L 53 L Respiratory Rate 18 Blood Pressure 111/67 Pulse Oximetry 100 Oxygen Delivery Exam Narrative: General: alert and comfortable Eyes: EOMI, PERRLA ENNT External ears normal, Neck is supple, no masses, Respiratory systems: Clear to auscultation Cardiovascular S1, S2, normal rhythm, no murmur, rub, or gallop; no thrill or palpable murmurs on palpation. Gastrointestinal: soft, non-tender, and non-distended abdomen with no masses; BS present Skin: no rash, lesions, ulcerations, subcutaneous nodules or induration Musculoskeletal: no abnormality and no tenderness, normal ROM Neurologic: Alert and oriented x3, non focal Mental Status Exam: normal affect H&P: Results Labs Labs: Short CBC 12/20/24 Range/Units 04:17 WBC 11.9 H (4.5-10.0) K/mm3 Hgb 15.3 D (14.0-18.0) g/dL Hct 45.5 (42.0-52.0) % Plt Count 188 (150-375) k/mm3 BMP 12/20/24 04:17 Sodium 138 Potassium 4.1 Chloride 104 Carbon Dioxide 24 BUN 15 Creatinine 1.09 Glucose 103 Calcium 9.9 Cardiac Enzymes 12/20/24 12/20/24 12/20/24 Range/Units 04:17 06:55 09:53 Troponin I 0.283 H* 1.760 H* D 3.970 H* D (0.000-0.034) ng/mL Liver Function 12/20/24 Range/Units 04:17 Total Bilirubin 0.3 (0.2-1.3) mg/dL AST 26 (17-59) U/L ALT 17 (6-50) U/L Alkaline Phosphatase 82 (38-126) U/L Albumin 4.6 (3.5-5.1) g/dL Assessment and Plan Assessment and plan (1) Non-ST elevation [place] (NSTEMI): Code(s): I21.4 - Non-ST elevation (NSTEMI) myocardial infarction Status: Acute Plan NSTEMI presented with chest with significant Troponin elevation EKG no acute ST-T changes A1c, Lipid panel, ECHO Aspirin, Statin and heparin infusion Cardiology following COPD Smokes about 1PPD Counseled about smoking cessationi PRN duoneb DVT prophylaxis on Heparin infusion Full code SDM: Mother Hannah Chauhan
[2024-12-20 21:32] LABS: Cholesterol 171 mg/dL (0-200); HDL Direct 39 mg/dL; Triglycerides 164 mg/dL (<150)
[2024-12-20] MEDS: ALBUTEROL SULFATE (*SP) AEROSOL 1 PUFF 2 PUFF INHALATION (21:32)
[2024-12-20 21:33] LABS: Partial Thromboplastin Time 81.0 Seconds (22.3-36.8)
[2024-12-21] VITALS (35 sets, daily range): BP systolic 94–144; BP diastolic 61–99; PULSE 53–97; RESP 12–24; TEMP 36.3–36.9; O2SAT 93–100
[2024-12-21 03:52] LABS: Hematocrit 46.2 % (42.0-52.0); Hemoglobin 15.1 g/dL (14.0-18.0); Immature Granulocyte Percent A 0.9 % (0-0.5); Lymphocytes Absolute Auto 0.77 K/mm3 (0.9-3.2); Mean Corpuscular HGB Conc 32.7 g/dl (32-36); Mean Corpuscular Hemoglobin 32.9 pg (26-34); Mean Corpuscular Volume 100.7 fl (80-100); Nucleated Red Blood Cells Absolute Auto 0.000 K/mm3 (0.0-0.012); Nucleated Red Blood Cells Perc 0.0 % (0.0-0.2); Platelet Count Result 184 k/mm3 (150-375); Red Blood Count 4.59 M/mm3 (4.6-6.20); White Blood Count 9.9 K/mm3 (4.5-10.0)
[2024-12-21 04:04] LABS: Hemoglobin A1C 6.0 % (<5.7)
[2024-12-21 04:07] LABS: Partial Thromboplastin Time 71.4 Seconds (22.3-36.8)
[2024-12-21 04:28] LABS: Alanine Aminotransferase 27 U/L (6-50); Albumin Level 4.6 g/dL (3.5-5.1); Alkaline Phosphatase 78 U/L (38-126); Anion Gap 7 mmol/L (4-12); Aspartate Amino Transferase 62 U/L (17-59); Bilirubin,Total 0.5 mg/dL (0.2-1.3); Blood Urea Nitrogen 13 mg/dL (9-20); Calcium 9.5 mg/dL (8.4-10.2); Carbon Dioxide 23 mmol/L (22-30); Chloride 103 mmol/L (98-107); Cholesterol 200 mg/dL (0-200); Estimated CRCL calculation 78 ml/min; Estimated Glomerular Filt Rate > 60; Glucose 133 mg/dL (65-110); HDL Direct 49 mg/dL; Magnesium 2.1 mg/dL (1.6-2.3); Potassium 4.9 mmol/L (3.4-5.0); Sodium 133 mmol/L (137-145); Total Protein 8.0 g/dL (6.3-8.2); Triglycerides 49 mg/dL (<150); Troponin I 3.100 ng/mL (0.000-0.034)
[2024-12-21] MEDS: HEPARIN SOD/D5W 100 UNITS/ML 25,000 UNITS/250 ML BAG 12 UNITS IV CONT (05:55)
--- NOTE | 2024-12-21 09:44 | WPDHPUPDATE1 ---
History and Physical Update Update Date/Time: 12/21/24 09:08 History and Physical has been reviewed, including an updated exam of the patient. There are NO changes in the patient's condition. Risks, benefits, and alternatives have been discussed and questions answered. Patient agrees to proceed with procedure.
[2024-12-21] MEDS: FLUTICASONE/SALMETEROL 45-21 MCG INHALER 1 PUFF 2 PUFF INHALATION ×2 (09:45→20:29)
--- NOTE | 2024-12-21 09:45 | WPDMODSED ---
Moderate Sedation Note-Pt Data Patient Data Allergies Allergy/AdvReac Type Severity Reaction Status Date / Time amoxicillin Allergy Severe Swelling Verified 06/01/24 16:29 of Lip/Tongue/Throat Iodinated Contrast Media Allergy Swelling Verified 06/01/24 16:29 of Lip/Tongue/Throat Home Medications ?Medication ?Instructions ?Recorded ?Confirmed ?Type mirtazapine 45 mg tablet 45 mg PO HS PRN sleep 06/01/24 12/20/24 History sertraline 100 mg tablet 200 mg PO DAILY 06/01/24 12/20/24 History albuterol sulfate 90 mcg/actuation 2 puff inhalation QID PRN 06/05/24 12/20/24 Rx aerosol inhaler (Ventolin HFA) shortness of breath or wheezing #8.5 grams fluticasone propionate 45 2 puff inhalation Q12HRT #1 g 06/05/24 12/20/24 Rx mcg-salmeterol 21 mcg/actuation HFA inhaler (Advair HFA) pantoprazole 40 mg tablet,delayed 80 mg PO DAILY 12/20/24 12/20/24 History release penicillin V potassium 500 mg 500 mg PO Q12H 12/20/24 12/20/24 History tablet Current Medications: Active Medications Albuterol (Albuterol Sulfate (*Sp) Aerosol 1 Puff) 2 puff INHALATION QID PRN PRN Reason: shortness of breath or wheezing Last Admin: 12/20/24 21:32 Dose: 2 puff Aspirin (Aspirin 81 Mg Enteric Tablet) 81 mg PO QAM [facility] Heparin Sodium (Porcine) (Heparin Sodium 5,000 Units/Ml Vial) 4,000 units IV PUSH PRN PRN PRN Reason: aPTT less than 55 seconds Heparin Sodium (Porcine) (Heparin Sodium 5,000 Units/Ml Vial) 3,500 units IV PUSH PRN PRN PRN Reason: aPTT 55 - 70 seconds Last Admin: 12/20/24 15:23 Dose: 3,500 units Heparin Sodium/Dextrose (Heparin Sodium/D5w 100 Units/Ml) 25,000 units in 250 mls @ 12 mls/hr IV CONT .[id number] [facility]; Protocol Last Admin: 12/21/24 05:55 Dose: 1,200 units/hr, 12 mls/hr Nitroglycerin (Nitroglycerin Sl 0.4 Mg Tablet) 0.4 mg SUBLINGUAL Q5MIN PRN PRN Reason: Chest Pain Ondansetron HCl (Ondansetron Inj 4 Mg/2 Ml Vial) 4 mg IV PUSH Q4H PRN PRN Reason: Nausea Perflutren Lipid Microsphere (Perflutren Lipid Microspheres 1.5 Ml Vial Diluted To 10 Ml Total Volume) 0 ml IV PUSH ONCE PRN; Protocol PRN Reason: adequate visualization Stop: 12/23/24 16:17 Rosuvastatin Calcium (Rosuvastatin 20 Mg Tablet) 20 mg PO QAM KATTY Fluticasone/Salmeterol (Fluticasone/Salmeterol 45-21 Mcg Inhaler 1 Puff) 2 puff INHALATION Q12HRT KATTY Sedation/Anesthesia: No previous sedation/anesthesia problems (including family history). [facility] Past Medical History Medical History Tobacco abuse Family History Family History (Updated 12/20/24 @ 11:25 by JODY CRENSHAW) Father Acute myocardial infarction Cerebrovascular accident Mother History of blood clots Diabetes mellitus Congestive heart failure Hypertension Cerebrovascular accident Other Acute myocardial infarction Afib Grandparent Afib Social History Social History Social History: Surrogate medical decision maker: Hannah Chauhan, mother. Code status: Full code. Smoking packs per day: 1 Smoking cigarettes per day: 20.0 Years smoked: 50 Smoking pack-years: 50.00 Smoking status: Current every day smoker Tobacco type: cigarettes Alcohol intake: never Substance use: never Substance use type: does not use Do You Feel Safe in your Home?: Yes Lack of Transportation: No Lack of Food: Never True Current Housing: I Have Housing Concerned About Future Housing: No Difficulty Paying Gas/Electric Bills: No Difficulty Paying for Meds: No Currently Unemployed: No Education: Grade School Difficulty w/ Childcare or Family Care: No Spiritual care concerns: No Mod Sed Physical Exam Physical Exam Pre Procedural Exam: Normal: Lungs, Heart Size, Heart Rate and Heart Rhythm Hours since solid foods: 12 Hours since liquid intake: 12 Mallampati Classification: class II Internal Medicine - PN: Obj Da Vital Signs Vital Signs: Vital Signs - 24 hr 12/20/24 10:00 12/20/24 12:00 12/20/24 12:00 Temperature 36.4 C L Pulse Rate 55 L 58 L 53 L Respiratory Rate 18 Blood Pressure 111/67 Pulse Oximetry 100 Oxygen Delivery 12/20/24 14:00 12/20/24 16:00 12/20/24 16:00 Temperature 36.6 C Pulse Rate 53 L 53 L 55 L Respiratory Rate 16 Blood Pressure 117/64 Pulse Oximetry 97 Oxygen Delivery 12/20/24 18:00 12/20/24 20:00 12/20/24 20:00 Temperature Pulse Rate 63 57 L Respiratory Rate Blood Pressure Pulse Oximetry Oxygen Delivery Room Air 12/20/24 20:25 12/20/24 21:36 12/20/24 22:00 Temperature 36.8 C Pulse Rate 55 L 83 63 Respiratory Rate 16 16 Blood Pressure 130/74 Pulse Oximetry 97 Oxygen Delivery 12/20/24 23:40 12/21/24 00:00 12/21/24 00:00 Temperature 36.8 C Pulse Rate 67 60 Respiratory Rate 16 Blood Pressure 110/60 Pulse Oximetry 99 Oxygen Delivery Room Air 12/21/24 02:00 12/21/24 04:00 12/21/24 04:00 Temperature Pulse Rate 53 L 58 L Respiratory Rate Blood Pressure Pulse Oximetry Oxygen Delivery Room Air 12/21/24 04:18 12/21/24 06:00 12/21/24 08:00 Temperature 36.9 C 36.4 C Pulse Rate 57 L 57 L 55 L Respiratory Rate 16 18 Blood Pressure 116/61 132/77 Pulse Oximetry 96 96 Oxygen Delivery Intake/Output Intake/Output: Intake & Output 12/18/24 12/19/24 12/20/24 12/21/24 23:59 23:59 23:59 23:59 Intake Total 748.7 1545 Balance 748.7 1545 Meds/Results Medications: Active Medications Generic Name Dose Route Start Last Admin Trade Name Freq PRN Reason Stop Dose Admin Albuterol 2 puff 12/20/24 20:47 12/20/24 21:32 Albuterol Sulfate (*Sp) Aerosol 1 Puff INHALATION 2 puff QID PRN Administration shortness of breath or wheezing Aspirin 81 mg 12/21/24 09:00 Aspirin 81 Mg [facility]ic [facility] Heparin Sodium (Porcine) 4,000 units 12/20/24 07:29 Heparin Sodium 5,000 Units/Ml Vial IV PUSH PRN PRN aPTT less than 55 seconds Heparin Sodium (Porcine) 3,500 units 12/20/24 07:29 12/20/24 15:23 Heparin Sodium 5,000 Units/Ml Vial IV PUSH 3,500 units PRN PRN Administration aPTT 55 - 70 seconds Heparin Sodium/Dextrose 25,000 units in 250 mls @ 12 mls/hr 12/20/24 07:30 12/21/24 05:55 Heparin Sodium/D5w 100 Units/Ml IV CONT 1,200 units/hr .[id number] KATTY 12 mls/hr Administration Protocol 1,200 UNITS/HR Nitroglycerin 0.4 mg 12/20/24 07:39 Nitroglycerin Sl 0.4 Mg Tablet SUBLINGUAL Q5MIN PRN Chest Pain Ondansetron HCl 4 mg 12/20/24 07:39 Ondansetron Inj 4 Mg/2 Ml Vial IV PUSH Q4H PRN Nausea Perflutren Lipid Microsphere 0 ml 12/20/24 16:16 Perflutren Lipid Microspheres 1.5 Ml Vial Diluted To 10 Ml Total Volume IV PUSH 12/23/24 16:17 ONCE PRN adequate visualization Protocol Rosuvastatin Calcium 20 mg 12/21/24 09:00 Rosuvastatin 20 Mg Tablet PO QAM KATTY Fluticasone/Salmeterol 2 puff 12/21/24 08:00 Fluticasone/Salmeterol 45-21 Mcg Inhaler 1 Puff INHALATION Q12HRT [facility] Radiology Results: ITS Impressions Chest X-Ray 12/20/24 05:49 Impression: Normal chest. Labs 12/21/24 03:38 12/21/24 03:38 Labs: Laboratory Results - last 24 hr 12/20/24 12/20/24 12/20/24 09:53 14:37 21:11 WBC RBC Hgb Hct MCV MCH MCHC RDW Plt Count MPV Immature Gran % (Auto) Neut % (Auto) Lymph % (Auto) [place] % (Auto) Eos % (Auto) Baso % (Auto) Lymph # (Auto) [place] # (Auto) Eos # (Auto) Baso # (Auto) Abs Immat Gran (auto) Absolute Neuts (auto) Absolute Nucleated RBC Nucleated RBC % APTT 56.6 H 81.0 H Sodium Potassium Chloride Carbon Dioxide Anion Gap BUN Creatinine Estim Creat Clear Calc Estimated GFR Glucose Hemoglobin A1c Calcium Magnesium Total Bilirubin AST ALT Alkaline Phosphatase Troponin I 3.970 H* D Total Protein Albumin Triglycerides 164 H Cholesterol 171 LDL Cholesterol Direct 98 HDL Direct 39 12/21/24 03:38 WBC 9.9 RBC 4.59 L Hgb 15.1 Hct 46.2 MCV 100.7 H MCH 32.9 MCHC 32.7 RDW 13.2 Plt Count 184 MPV 10.1 Immature Gran % (Auto) 0.9 H Neut % (Auto) 89.3 H Lymph % (Auto) 7.7 L [place] % (Auto) 1.7 L Eos % (Auto) 0.1 Baso % (Auto) 0.3 Lymph # (Auto) 0.77 L [place] # (Auto) 0.2 Eos # (Auto) 0.0 Baso # (Auto) 0.0 Abs Immat Gran (auto) 0.09 H Absolute Neuts (auto) 8.9 H Absolute Nucleated RBC 0.000 Nucleated RBC % 0.0 APTT 71.4 H Sodium 133 L Potassium 4.9 Chloride 103 Carbon Dioxide 23 Anion Gap 7 BUN 13 Creatinine 0.88 Estim Creat Clear Calc 78 Estimated GFR > 60 Glucose 133 H Hemoglobin A1c 6.0 H Calcium 9.5 Magnesium 2.1 Total Bilirubin 0.5 AST 62 H ALT 27 Alkaline Phosphatase 78 Troponin I 3.100 H* Total Protein 8.0 Albumin 4.6 Triglycerides 49 Cholesterol 200 LDL Cholesterol Direct 116 HDL Direct 49 ASA Classification/Sedation ASA Classification/Sedation ASA Class: III Emergent: No Risks: Risks, benefits and alternatives explained and patient/family accepted plan for sedation. Patient re-evaluated immediately prior to sedation.
[2024-12-21] MEDS: ROSUVASTATIN 20 MG TABLET PO (10:08)
[2024-12-21] MEDS: diphenhydrAMINE HCl CAP 25 MG CAPSULE 50 MG PO (10:08)
[2024-12-21] MEDS: ASPIRIN 81 MG ENTERIC TABLET PO (10:08)
--- NOTE | 2024-12-21 12:23 | P.PCNCC_ITS ---
Cardiac Cath Procedure Note Date of procedure:: 12/21/24 Performing physician:: CATHETERIZATION LABORATORY REPORT Procedure Date: 12/21/2024 Referring Physician: Dr. Solo Anesthesia: Versed and Fentanyl were ordered and given in my presence at 1124, procedure ended at 1210. Supervision of nurse, Hina Peck monitored moderate sedation with 2mg Versed and 250mcg Fentanyl was provided for 46 minutes. Pre-op Diagnosis: Non ST-elevation NJ Post-op Diagnosis: Non-STEMI Procedure(s): Left heart catheterization with coronary angiography Percutaneous coronary intervention Intravascular ultrasound Access Site: Right radial artery Brief History and Clinical Indications: 64-year-old man with paroxysmal atrial fibrillation presented with chest discomfort whose clinical presentation was consistent with non ST elevation NJ is now here to define his coronary anatomy with possible PCI. All risks, benefits and alternatives to left heart catheterization with or without percutaneous coronary intervention was discussed at length with the avinash ent. Risk of complications including but not limited to bleeding, infection, arrhythmia, stroke, worsening kidney function, blood loss, groin hematoma, limb loss, emergency coronary artery bypass grafting, and even were discussed with the patient and all questions were answered. The patient understood and wished to proceed. Time out called, patient name, date of , medical record number, allergies, procedure performed, identify Music Executive, patient and staff member concurred with accurate data, procedure carried on. Findings: LEFT HEART CATHETERIZATION FINDINGS: 1. Left main: The left main coronary artery is widely patent without any significant obstructive disease. 2. Left anterior descending: The LAD has diffuse 10-20% stenosis in the proximal to mid segments. The mid LAD after the takeoff of the 2nd diagonal has a segment of myocardial bridging. The remainder of the LAD has luminal irregularities. The diagonal branches are free of angiographic high-grade stenosis. 3. Left circumflex: The left circumflex artery is a large caliber vessel that provides 2 significant OM branches. The proximal left circumflex has 20% stenosis prior to the takeoff of the OM 2 which has a 99% stenosis. 4. Right coronary artery: The RCA is a large dominant vessel with mild diffuse 10-20% stenosis 5. Left ventricle: A. End-diastolic pressure 12 mmHg. B. LV gram deferred. C. No significant gradient across aortic valve on catheter pullback. 6. Opening AO pressure 105/76 and closing AO pressure 140/71 Description of Procedure: Informed consent signed and placed in the chart. Patient transferred to ear mold laboratory technician room. Prepped and draped in usual sterile fashion. 2% lidocaine injected subcutaneously in right wrist area. 22-gauge venipuncture catheter used to access the right radial artery with the Seldinger technique. 6-FR slender sheath placed in right radial artery. Nitroglycerin 200mcg, Verapamil 2.5mg, and Heparin 5000U was given intraarterial through the sheath. J wire advanced under fluoroscopy 5F JL3.5 diagnostic catheter engaged Left Main Coronary Artery. 5F JR4 diagnostic catheter engaged Right Coronary Artery Multiple orthogonal angiogram obtained and reviewed 5F JR4 diagnostic catheter crossed aortic valve to obtain LVEDP, LV angiogram deferred. Procedure Description for PCI: Heparin was used for anticoagulation (ACT maintained above 250) Patient loaded with heparin at 70 units/kg. 6F EBU 3.5 guide catheter was used to intubate the LMCA. A 0.014 Runthrough coronary wire was passed in to the distal OM2. The lesion was pre-dilated with a 3.0x20 mm balloon inflated to nominal pressures. A 3.5 x 26mm [place] Garvin UMAIR was successfully deployed into OM1 with resulting slow flow. Nicardipine 300mcg IC and Nitroglycerin 200mcg IC was given with mandaeism of normal flow. IVUS was performed showing areas of stent underexpansion as well as vulnerable plaque morphology at the proximal edge of the stent for which a 4.5 x 20mm NC balloon was used and inflated to high TERESA. Follow-up angiogram demonstrated plaque shift in the proximal edge of the stent which was covered with a 4.0 x 22mm [place] Garvin UMAIR. The overlapped stent region was post-dilated with the stent balloon to 4.3mm diameter with excellent angiographic results. An additional nicardipine 300mcg IC was delivered. All intracoronary equipment was removed under fluoroscopy and final angiography demonstrated excellent results. Pre-procedure - EVA 3 flow Post-procedure - EVA 3 flow No angiographic complications identified. Assessment: Successful IVUS guided PCI of the LCx into the OM2 with overlapping 3.5 x 26mm and 4.0 x 22mm [place] Garvin UMAIR with excellent angiographic results. Post Operative Condition: Stable No significant blood loss Disposition: Floor Plan: Continue aspirin 81 mg p.o. daily indefinitely. Continue Plavix 75 mg p.o. daily for 1 year. Continue rosuvastatin 20 mg every evening. Patient can be discharged today however would ensure that has both his aspirin and Plavix prior to discharge. Felix Gonzalez Interventional Cardiology
[2024-12-21] MEDS: NITROGLYCERIN SL 0.4 MG TABLET SUBLINGUAL (12:35)
[2024-12-21] MEDS: SODIUM CHLORIDE 0.9% IV 1,000 ML 125 ML IV CONT (13:51)
--- NOTE | 2024-12-21 14:50 | P.PNIM_ITS ---
Progress Note: A&P Assessment and Plan (1) Non-ST elevation NC (NSTEMI): Code(s): I21.4 - Non-ST elevation (NSTEMI) myocardial infarction Status: Acute Plan NSTEMI presented with chest with significant Troponin elevation EKG no acute ST-T changes A1c, Lipid panel, ECHO Aspirin, Statin and heparin infusion For cardiac cath today Cardiology following COPD Smokes about 1PPD Counseled about smoking cessationi PRN duoneb DVT prophylaxis on Heparin infusion Full code Subjective Date/time seen: 12/21/24 14:50 Interval history: Comfortable at bedside Review of Systems Review of Systems: All other systems were reviewed and negative except as noted in the HPI above Exam Narrative: General: alert and comfortable Eyes: EOMI, PERRLA ENNT External ears normal, Neck is supple, no masses, Respiratory systems: Clear to auscultation Cardiovascular S1, S2, normal rhythm, no murmur, rub, or gallop; no thrill or palpable murmurs on palpation. Gastrointestinal: soft, non-tender, and non-distended abdomen with no masses; BS present Skin: no rash, lesions, ulcerations, subcutaneous nodules or induration Musculoskeletal: no abnormality and no tenderness, normal ROM Neurologic: Alert and oriented x3, non focal Mental Status Exam: normal affect Objective Data Vital Signs Vital Signs: Vital Signs - 24 hr 12/20/24 16:00 12/20/24 16:00 12/20/24 18:00 Temperature 98 F Pulse Rate 53 L 55 L 63 Pulse Rate [Right Radial Palpation] Respiratory Rate 16 Blood Pressure 117/64 Pulse Oximetry 97 Oxygen Delivery 12/20/24 20:00 12/20/24 20:00 12/20/24 20:25 Temperature 98.2 F Pulse Rate 57 L 55 L Pulse Rate [Right Radial Palpation] Respiratory Rate 16 Blood Pressure 130/74 Pulse Oximetry 97 Oxygen Delivery Room Air 12/20/24 21:36 12/20/24 22:00 12/20/24 23:40 Temperature 98.3 F Pulse Rate 83 63 67 Pulse Rate [Right Radial Palpation] Respiratory Rate 16 16 Blood Pressure 110/60 Pulse Oximetry 99 Oxygen Delivery 12/21/24 00:00 12/21/24 00:00 12/21/24 02:00 Temperature Pulse Rate 60 53 L Pulse Rate [Right Radial Palpation] Respiratory Rate Blood Pressure Pulse Oximetry Oxygen Delivery Room Air 12/21/24 04:00 12/21/24 04:00 12/21/24 04:18 Temperature 98.5 F Pulse Rate 58 L 57 L Pulse Rate [Right Radial Palpation] Respiratory Rate 16 Blood Pressure 116/61 Pulse Oximetry 96 Oxygen Delivery Room Air 12/21/24 06:00 12/21/24 08:00 12/21/24 08:00 Temperature 97.6 F Pulse Rate 57 L 55 L 65 Pulse Rate [Right Radial Palpation] Respiratory Rate 18 Blood Pressure 132/77 Pulse Oximetry 96 Oxygen Delivery 12/21/24 09:46 12/21/24 09:49 12/21/24 09:51 Temperature Pulse Rate 68 58 L 57 L Pulse Rate [Right Radial Palpation] Respiratory Rate 19 18 17 Blood Pressure Pulse Oximetry 96 Oxygen Delivery Room Air 12/21/24 10:00 12/21/24 12:30 12/21/24 12:30 Temperature Pulse Rate 58 L 68 Pulse Rate [Right Radial Palpation] 74 Respiratory Rate 12 Blood Pressure 124/82 Pulse Oximetry 94 Oxygen Delivery Room Air 12/21/24 12:45 12/21/24 12:45 12/21/24 13:00 Temperature Pulse Rate 60 Pulse Rate [Right Radial Palpation] 60 69 Respiratory Rate 16 Blood Pressure 96/81 L Pulse Oximetry 95 Oxygen Delivery Room Air 12/21/24 13:00 12/21/24 13:15 12/21/24 13:15 Temperature Pulse Rate 69 68 Pulse Rate [Right Radial Palpation] 68 Respiratory Rate 20 16 Blood Pressure 144/85 H 136/86 Pulse Oximetry 96 95 Oxygen Delivery Room Air Room Air 12/21/24 13:30 12/21/24 13:30 12/21/24 13:45 Temperature Pulse Rate 57 L Pulse Rate [Right Radial Palpation] 57 L 87 Respiratory Rate 15 Blood Pressure 137/87 Pulse Oximetry 93 Oxygen Delivery Room Air 12/21/24 13:45 12/21/24 14:00 12/21/24 14:00 Temperature Pulse Rate 87 85 Pulse Rate [Right Radial Palpation] 85 Respiratory Rate 20 18 Blood Pressure 94/70 L 97/73 L Pulse Oximetry 93 97 Oxygen Delivery Room Air Room Air 12/21/24 14:15 12/21/24 14:15 Temperature Pulse Rate 82 Pulse Rate [Right Radial Palpation] 82 Respiratory Rate 14 Blood Pressure 94/68 L Pulse Oximetry 97 Oxygen Delivery Room Air Intake/Output Intake/Output: Intake & Output 12/18/24 12/19/24 12/20/24 12/21/24 23:59 23:59 23:59 23:59 Intake Total 748.7 1545 Balance 748.7 1545 Meds/Results Medications: Active Medications Generic Name Dose Route Start Last Admin Trade Name Freq PRN Reason Stop Dose Admin Albuterol 2 puff 12/20/24 20:47 12/20/24 21:32 Albuterol Sulfate (*Sp) Aerosol 1 Puff INHALATION 2 puff QID PRN Administration shortness of breath or wheezing Aspirin 81 mg 12/21/24 09:00 12/21/24 10:08 Aspirin 81 Mg Enteric Tablet PO 81 mg QAM KATTY Administration Clopidogrel Bisulfate 75 mg 12/22/24 09:00 Clopidogrel Bisulfate 75 Mg Tablet PO QAM KATTY Sodium Chloride 1,000 mls @ 125 mls/hr 12/21/24 12:21 12/21/24 13:51 Normal Saline Iv IV CONT 12/21/24 20:20 125 mls/hr .Q8H ONE Administration Nitroglycerin 0.4 mg 12/20/24 07:39 12/21/24 12:35 Nitroglycerin Sl 0.4 Mg Tablet SUBLINGUAL 0.4 mg Q5MIN PRN Administration Chest Pain Ondansetron HCl 4 mg 12/20/24 07:39 Ondansetron Inj 4 Mg/2 Ml Vial IV PUSH Q4H PRN Nausea Perflutren Lipid Microsphere 0 ml 12/20/24 16:16 Perflutren Lipid Microspheres 1.5 Ml Vial Diluted To 10 Ml Total Volume IV PUSH 12/23/24 16:17 ONCE PRN adequate visualization Protocol Rosuvastatin Calcium 20 mg 12/21/24 09:00 12/21/24 10:08 Rosuvastatin 20 Mg Tablet PO 20 mg QAM KATTY Administration Fluticasone/Salmeterol 2 puff 12/21/24 08:00 12/21/24 09:45 Fluticasone/Salmeterol 45-21 Mcg Inhaler 1 Puff INHALATION 2 puff Q12HRT KATTY Administration Radiology Results: ITS Impressions Chest X-Ray 12/20/24 05:49 Impression: Normal chest. Labs Labs: Laboratory Results - last 24 hr 12/20/24 12/20/2425 14:37 21:11 03:38 WBC 9.9 RBC 4.59 L Hgb 15.1 Hct 46.2 MCV 100.7 H MCH 32.9 MCHC 32.7 RDW 13.2 Plt Count 184 MPV 10.1 Immature Gran % (Auto) 0.9 H Neut % (Auto) 89.3 H Lymph % (Auto) 7.7 L [place] % (Auto) 1.7 L Eos % (Auto) 0.1 Baso % (Auto) 0.3 Lymph # (Auto) 0.77 L [place] # (Auto) 0.2 Eos # (Auto) 0.0 Baso # (Auto) 0.0 Abs Immat Gran (auto) 0.09 H Absolute Neuts (auto) 8.9 H Absolute Nucleated RBC 0.000 Nucleated RBC % 0.0 APTT 56.6 H 81.0 H 71.4 H Activ Coag Time Kaolin Sodium 133 L Potassium 4.9 Chloride 103 Carbon Dioxide 23 Anion Gap 7 BUN 13 Creatinine 0.88 Estim Creat Clear Calc 78 Estimated GFR > 60 Glucose 133 H Hemoglobin A1c 6.0 H Calcium 9.5 Magnesium 2.1 Total Bilirubin 0.5 AST 62 H ALT 27 Alkaline Phosphatase 78 Troponin I 3.100 H* Total Protein 8.0 Albumin 4.6 Triglycerides 164 H 49 Cholesterol 171 200 LDL Cholesterol Direct 98 116 HDL Direct 39 49 12/21/24 11:59 WBC RBC Hgb Hct MCV MCH MCHC RDW Plt Count MPV Immature Gran % (Auto) Neut % (Auto) Lymph % (Auto) [place] % (Auto) Eos % (Auto) Baso % (Auto) Lymph # (Auto) [place] # (Auto) Eos # (Auto) Baso # (Auto) Abs Immat Gran (auto) Absolute Neuts (auto) Absolute Nucleated RBC Nucleated RBC % APTT Activ Coag Time Kaolin 279 H Sodium Potassium Chloride Carbon Dioxide Anion Gap BUN Creatinine Estim Creat Clear Calc Estimated GFR Glucose Hemoglobin A1c Calcium Magnesium Total Bilirubin AST ALT Alkaline Phosphatase Troponin I Total Protein Albumin Triglycerides Cholesterol LDL Cholesterol Direct HDL Direct
[2024-12-22] VITALS (22 sets, daily range): BP systolic 109–138; BP diastolic 60–72; PULSE 56–77; RESP 16–20; TEMP 36.4–37.3; O2SAT 93–99
--- NOTE | 2024-12-22 | ECHO_ITS ---
Patient Info Name: Terrance Chauhan Age: 64 years : 1960 Gender: Male Ht: 71 in Wt: 182 lbs BSA: 2.04 m2 HR: 60 bpm BP: 121 / 64 mmHg Heart Rhythm: Sinus Rhythm Technical Quality: Good Exam Date: 12/22/2024 10:13 AM Patient Status: I Admit Date: 12/20/2024 Exam Type: CA echo dop color flow w con Complete two-dimensional, color flow and Doppler transthoracic echocardiogram is performed with contrast to opacify the left ventricle and to improve the deliniation of the left ventricle endocardial borders. Staff Referring Physician: Flaca Barnard Numerical Control Programmer: Iona Perez Attending Provider: Ifeoma Galvan Contrast/Agitated Saline Contrast/Ag. Saline: Definity Amount: 2.00 ml Administered By: Iona Perez Existing IV Access: Yes IV Access Condition: patent with no signs of infiltration Summary 1. Mild concentric LVH with vigorous systolic function. 2. Grade 1 diastolic noncompliance. 3. Trivial MR. Left Ventricle Left ventricular chamber dimension is normal. Left ventricular systolic function is hyperdynamic, estimated at >70. There is mild concentric increased left ventricular wall thickness. The left ventricular diastolic function is grade I diastolic dysfunction. Right Ventricle Right ventricular chamber dimension is normal. Left Atria Left atrial chamber dimension is normal. Right Atria Right atrial chamber dimension is normal. Aortic Valve The aortic valve is normal. Pulmonic Valve The pulmonic valve is normal. Mitral Valve The mitral valve has normal leaflets. There is trace mitral valve regurgitation. Tricuspid Valve The tricuspid valve leaflets are normal. Pericardium/Pleural The pericardium appears normal. Aorta The aortic root size at the sinus of Valsalva is normal. Left Ventricular Outflow Tract Name Value Normal LVOT 2D LVOT Diameter 2.0 cm LVOT Doppler LVOT Peak Velocity 135 cm/s LVOT Peak Gradient 7 mmHg LVOT Mean Gradient 4 mmHg LVOT VTI 26 cm LVOT VTI/AV VTI Ratio 0.7 LVOT Stroke Volume 83 ml LVOT CO 5.0 l/min LVOT CI 2.5 l/min/m2 Mitral Valve Name Value Normal MV Diastolic Function MV E Peak Velocity 80 cm/s MV A Peak Velocity 66 cm/s MV E/A 1.2 MV Decel Time (PW) 213 ms MV Annular TDI MV E/e' (Septal) 12.1 Tricuspid Valve Name Value Normal TV Regurgitation Doppler TR Peak Velocity 237 cm/s TR Peak Gradient 22 mmHg Estimated PAP/RSVP RA Pressure 10 mmHg <=5 PA Systolic Pressure 32 mmHg <36 RV Systolic Pressure 32 mmHg <36 TV Annular TDI TV Lateral Shanon s' Velocity 13.2 cm/s >=9.5 Aortic Valve Name Value Normal AV Doppler AV Peak Velocity 193 cm/s AV Peak Gradient 15 mmHg AV Mean Gradient 7 mmHg AV VTI 35 cm AV Area (Cont Eq VTI) 2.4 cm2 >=3.0 AV Area (Cont Eq Dm) 2.3 cm2 AV DI (Dm) 0.70 AV Regurgitation 2D LVOT Area 3.2 cm2 Ventricles Name Value Normal LV Dimensions 2D/MM IVS Diastolic Thickness (2D) 1.1 cm 0.6-1.0 LVID Diastole (2D) 3.7 cm 4.2-5.8 LVIW Diastolic Thickness (2D) 1.1 cm 0.6-1.0 LVID Systole (2D) 2.5 cm 2.5-4.0 LVOT Diameter 2.0 cm LV Mass (2D Cubed) 132.28 g 88.00-224.00 LV Mass Index (2D Cubed) 65 g/m2 49-115 Relative Wall Thickness (2D) 0.61 <=0.42 LV Fractional Shortening/Ejection Fraction 2D/MM LV Fractional Shortening (2D) 33 % 25-43 LV EF (2D Teichholz) 62 % LV Diastolic Volume (4C MOD) 97 ml LV EF (4C MOD) 65 % LV Diastolic Volume (2C MOD) 105 ml LV EF (2C MOD) 63 % LV Diastolic Volume (BP MOD) 103 ml 62-150 LV Diastolic Volume Index (BP MOD) 50 ml/m2 34-74 LV Systolic Volume (BP MOD) 36 ml 21-61 LV Systolic Volume Index (BP MOD) 18 ml/m2 11-31 LV EF (BP MOD) 65 % 52-72 LV Diastolic Length (4C) 7.8 cm LV Systolic Length (4C) 6.4 cm LV Stroke Volume (4C MOD) 62 ml Atria Name Value Normal LA Dimensions LA Volume (4C A-L) 58 ml LA Volume (BP A-L) 77 ml RA Dimensions RA Area (4C) 21.6 cm2 <=18.0 Report Signatures
--- NOTE | 2024-12-22 03:07 | ECG_ITS ---
Test Date: 2024-12-22 03:12:58 Measurements Intervals [place] Rate: 61 P: 66 [place]: 164 QRS: -61 QRSD: 159 T: 100 QT: 425 QTc: 431 Interpretive Statements SINUS RHYTHM RIGHT BUNDLE BRANCH BLOCK LEFT ANTERIOR FASCICULAR BLOCK LEFT VENTRICULAR HYPERTROPHY AND ST-T CHANGE CONSIDER HIGH LATERAL INFARCT, AGE INDETERMINATE T WAVE ABNORMALITY IN LATERAL LEADS- CONSIDER ISCHEMIA ABNORMAL ECG Compared to ECG 12/20/2024 07:30:21 NO SIGNIFICANT CHANGE Electronically Signed On 12-22-2024 06:27:10 CDT by Chu Yo D.O.
[2024-12-22] MEDS: NITROGLYCERIN SL 0.4 MG TABLET SUBLINGUAL ×2 (03:18→03:23)
[2024-12-22 03:36] LABS: Hematocrit 40.3 % (42.0-52.0); Hemoglobin 13.4 g/dL (14.0-18.0); Immature Granulocyte Percent A 0.9 % (0-0.5); Lymphocytes Absolute Auto 1.93 K/mm3 (0.9-3.2); Mean Corpuscular HGB Conc 33.3 g/dl (32-36); Mean Corpuscular Hemoglobin 32.5 pg (26-34); Mean Corpuscular Volume 97.8 fl (80-100); Nucleated Red Blood Cells Absolute Auto 0.000 K/mm3 (0.0-0.012); Nucleated Red Blood Cells Perc 0.0 % (0.0-0.2); Platelet Count Result 187 k/mm3 (150-375); Red Blood Count 4.12 M/mm3 (4.6-6.20); White Blood Count 15.9 K/mm3 (4.5-10.0)
[2024-12-22 03:48] LABS: Alanine Aminotransferase 31 U/L (6-50); Albumin Level 4.0 g/dL (3.5-5.1); Alkaline Phosphatase 73 U/L (38-126); Anion Gap 7 mmol/L (4-12); Aspartate Amino Transferase 71 U/L (17-59); Bilirubin,Total 0.3 mg/dL (0.2-1.3); Blood Urea Nitrogen 15 mg/dL (9-20); Calcium 9.0 mg/dL (8.4-10.2); Carbon Dioxide 22 mmol/L (22-30); Chloride 107 mmol/L (98-107); Estimated CRCL calculation 82 ml/min; Estimated Glomerular Filt Rate > 60; Glucose 107 mg/dL (65-110); Magnesium 2.1 mg/dL (1.6-2.3); Potassium 3.9 mmol/L (3.4-5.0); Sodium 136 mmol/L (137-145); Total Protein 6.9 g/dL (6.3-8.2)
[2024-12-22 03:59] LABS: Troponin I 6.920 ng/mL (0.000-0.034)
--- NOTE | 2024-12-22 04:03 | P.PNCROSS_ITS ---
Event Note Event Note Event Note: Patient admitted to the hospital with NSTEMI and underwent cardiac catheterizat ion with 2 stents placed on 12/21/24. RN contacted me when patient complained of chest pain. Patient told nurse that he ate a sandwhich before bed and the pain felt like acid reflux but a bit different. EKG obtained. My independent interpretation of 12 Lead EKG is sinus rhythm rate of 61, LA 164, QRS duration 159, QTC 429, QRS axis -61, RBBB with left axis deviation = bifascicular block which is essentially unchanged from prior EKG. No STEMI. Pain was improved with one nitroglycerin sublingual and relieved completely with a second sublingual nitro. Troponin returned at 6.9. Will trend again and repeat EKG in 3 hours.
--- NOTE | 2024-12-22 07:00 | ECG_ITS ---
Test Date: 2024-12-22 06:58:26 Measurements Intervals [place] Rate: 55 P: 48 [place]: 155 QRS: -61 QRSD: 151 T: 122 QT: 462 QTc: 443 Interpretive Statements SINUS BRADYCARDIA RIGHT BUNDLE BRANCH BLOCK LEFT ANTERIOR FASCICULAR BLOCK LEFT VENTRICULAR HYPERTROPHY AND ST-T CHANGE CONSIDER HIGH LATERAL INFARCT, AGE INDETERMINATE T WAVE ABNORMALITY IN LATERAL LEADS- CONSIDER ISCHEMIA ABNORMAL ECG Compared to ECG 12/22/2024 03:12:58 HEART RATE HAS DECREASED Electronically Signed On 12-22-2024 07:59:22 CDT by Chu Yo D.O.
[2024-12-22 07:24] LABS: Troponin I 9.210 ng/mL (0.000-0.034)
--- NOTE | 2024-12-22 10:00 | ECG_ITS ---
Test Date: 2024-12-22 10:00:27 Measurements Intervals [place] Rate: 64 P: 67 [place]: 156 QRS: -68 QRSD: 146 T: 117 QT: 399 QTc: 413 Interpretive Statements SINUS RHYTHM RIGHT BUNDLE BRANCH BLOCK LEFT ANTERIOR FASCICULAR BLOCK LEFT VENTRICULAR HYPERTROPHY AND ST-T CHANGE CONSIDER HIGH LATERAL INFARCT, AGE INDETERMINATE CANNOT R/O SEPTAL INFARCT, AGE INDETERMINATE T WAVE ABNORMALITY IN LATERAL LEADS- CONSIDER ISCHEMIA ABNORMAL ECG Compared to ECG 12/22/2024 06:58:26 HEART RATE HAS INCREASED Electronically Signed On 12-22-2024 10:03:50 CDT by Chu Yo D.O.
[2024-12-22] MEDS: PERFLUTREN LIPID MICROSPHERES 1.5 ML VIAL DILUTED TO 10 ML TOTAL VOLUME IV PUSH (10:40)
--- NOTE | 2024-12-22 10:48 | PM.PNCARD ---
Progress Note: A&P Assessment and Plan (1) Non-ST elevation [place] (NSTEMI): Code(s): I21.4 - Non-ST elevation (NSTEMI) myocardial infarction Status: Acute Plan 64-year-old man with: Ischemic heart disease with acute coronary syndrome status post successful PCI to circumflex OM 2 branch yesterday. Patient will be kept of course on dual anti-platelet therapy. His sinus rate is in the 50 so I will not resume beta-olive at this time. Will add some oral nitrates because of the lingering ischemic type pain that was going on yesterday and through the night. Because of this I do not believe it is prudent to discharge him from the hospital today. He understands and agrees with this. Obviously smoking cessation is also extremely important. It is heart rate increases then I would also resume metoprolol treatment. Cordell Solo MD [facility] Subjective Date/time seen: Date of service: 12/22/24 10:48 Interval history: Follow-up visit in this 64-year-old man with: Newly diagnosed coronary artery disease patient presented with acute coronary syndrome. Catheterization yesterday demonstrated high-grade stenosis in circumflex OM 2 branch which was treated successfully with 2 overlapping drug-eluting stents. Patient had some ischemic type chest pain and overnight at about 3:00 a.m. resolved with nitrates. ECG did not suggest acute stent thrombosis. He is comfortable this morning. Patient also has diagnosis of paroxysmal AFib which was identified earlier this year with intermittent palpitations. Had previously been on beta-olive treatment for this and did not follow up in the office. Exam Const: General: comfortable and no acute distress HENMT: Face/Nose/Sinus: Normal nares present Eyes: Sclera: sclerae normal and scleral abnormality Neck: Neck: supple and no JVD Resp: Effort & Inspection: normal respiratory effort Auscultation: clear to auscultation bilaterally Cardio: Rate: regular rate and bradycardic GI: GI Palp: Yes Soft to palpation Auscultation: normal bowel sounds Skin: General skin exam: normal color Neuro: Other: Alert and oriented x3 Extrem: General: normal to inspection Objective Data Vital Signs Vital Signs: Vital Signs - 24 hr 12/21/24 12:30 12/21/24 12:30 12/21/24 12:45 Temperature Pulse Rate 68 Pulse Rate [Right Radial Palpation] 74 60 Respiratory Rate 12 Blood Pressure 124/82 Pulse Oximetry 94 Oxygen Delivery Room Air 12/21/24 12:45 12/21/24 13:00 12/21/24 13:00 Temperature Pulse Rate 60 69 Pulse Rate [Right Radial Palpation] 69 Respiratory Rate 16 20 Blood Pressure 96/81 L 144/85 H Pulse Oximetry 95 96 Oxygen Delivery Room Air Room Air 12/21/24 13:15 12/21/24 13:15 12/21/24 13:30 Temperature Pulse Rate 68 Pulse Rate [Right Radial Palpation] 68 57 L Respiratory Rate 16 Blood Pressure 136/86 Pulse Oximetry 95 Oxygen Delivery Room Air 12/21/24 13:30 12/21/24 13:45 12/21/24 13:45 Temperature Pulse Rate 57 L 87 Pulse Rate [Right Radial Palpation] 87 Respiratory Rate 15 20 Blood Pressure 137/87 94/70 L Pulse Oximetry 93 93 Oxygen Delivery Room Air Room Air 12/21/24 14:00 12/21/24 14:00 12/21/24 14:15 Temperature Pulse Rate 85 Pulse Rate [Right Radial Palpation] 85 82 Respiratory Rate 18 Blood Pressure 97/73 L Pulse Oximetry 97 Oxygen Delivery Room Air 12/21/24 14:15 12/21/24 14:30 12/21/24 14:30 Temperature Pulse Rate 82 85 Pulse Rate [Right Radial Palpation] 85 Respiratory Rate 14 15 Blood Pressure 94/68 L 130/78 Pulse Oximetry 97 97 Oxygen Delivery Room Air Room Air 12/21/24 14:45 12/21/24 14:45 12/21/24 15:00 Temperature Pulse Rate 90 Pulse Rate [Right Radial Palpation] 90 84 Respiratory Rate 16 Blood Pressure 132/76 Pulse Oximetry 97 Oxygen Delivery Room Air 12/21/24 15:00 12/21/24 15:15 12/21/24 15:15 Temperature Pulse Rate 81 79 Pulse Rate [Right Radial Palpation] 79 Respiratory Rate 18 16 Blood Pressure 134/78 127/83 Pulse Oximetry 99 99 Oxygen Delivery Room Air Room Air 12/21/24 15:30 12/21/24 15:30 12/21/24 15:45 Temperature Pulse Rate 68 62 Pulse Rate [Right Radial Palpation] 68 Respiratory Rate 16 16 Blood Pressure 124/68 126/67 Pulse Oximetry 96 96 Oxygen Delivery Room Air Room Air 12/21/24 15:45 12/21/24 16:00 12/21/24 16:00 Temperature Pulse Rate 65 Pulse Rate [Right Radial Palpation] 62 65 Respiratory Rate 16 Blood Pressure 131/73 Pulse Oximetry 94 Oxygen Delivery Room Air 12/21/24 16:15 12/21/24 16:15 12/21/24 16:30 Temperature Pulse Rate 66 Pulse Rate [Right Radial Palpation] 68 67 Respiratory Rate 16 Blood Pressure 135/76 Pulse Oximetry 94 Oxygen Delivery Room Air 12/21/24 16:30 12/21/24 16:45 12/21/24 16:45 Temperature Pulse Rate 67 67 Pulse Rate [Right Radial Palpation] 67 Respiratory Rate 15 17 Blood Pressure 137/69 141/76 H Pulse Oximetry 95 94 Oxygen Delivery Room Air Room Air 12/21/24 16:45 12/21/24 17:22 12/21/24 18:00 Temperature 36.8 C Pulse Rate 80 74 97 Pulse Rate [Right Radial Palpation] Respiratory Rate 20 Blood Pressure 139/75 Pulse Oximetry 97 Oxygen Delivery 12/21/24 18:30 12/21/24 20:00 12/21/24 20:00 Temperature 36.3 C L 36.6 C Pulse Rate 71 80 Pulse Rate [Right Radial Palpation] Respiratory Rate 24 H 18 Blood Pressure 127/99 H 135/62 Pulse Oximetry 100 96 Oxygen Delivery Room Air 12/21/24 20:00 12/21/24 20:30 12/21/24 20:37 Temperature Pulse Rate 77 80 80 Pulse Rate [Right Radial Palpation] Respiratory Rate 18 18 Blood Pressure Pulse Oximetry 96 Oxygen Delivery Room Air 12/21/24 22:00 12/22/24 00:00 12/22/24 00:00 Temperature 37.1 C Pulse Rate 72 77 66 Pulse Rate [Right Radial Palpation] Respiratory Rate 16 Blood Pressure 129/62 Pulse Oximetry 99 Oxygen Delivery 12/22/24 00:00 12/22/24 02:00 12/22/24 03:18 Temperature Pulse Rate 66 Pulse Rate [Right Radial Palpation] Respiratory Rate Blood Pressure 138/72 Pulse Oximetry Oxygen Delivery Room Air 12/22/24 03:23 12/22/24 04:00 12/22/24 04:00 Temperature Pulse Rate 61 Pulse Rate [Right Radial Palpation] Respiratory Rate Blood Pressure 114/68 Pulse Oximetry Oxygen Delivery Room Air 12/22/24 04:00 12/22/24 06:00 12/22/24 08:00 Temperature 37.3 C Pulse Rate 66 60 70 Pulse Rate [Right Radial Palpation] Respiratory Rate 18 Blood Pressure 121/64 Pulse Oximetry 98 Oxygen Delivery 12/22/24 08:00 12/22/24 08:08 Temperature 36.5 C Pulse Rate 60 Pulse Rate [Right Radial Palpation] Respiratory Rate 18 Blood Pressure 136/70 Pulse Oximetry 97 Oxygen Delivery Room Air Intake/Output Intake/Output: Intake & Output 12/19/24 12/20/24 12/21/24 12/22/24 23:59 23:59 23:59 23:59 Intake Total 748.7 1545 480 Output Total 0 Balance 748.7 1545 480 Meds/Results Medications: Active Medications Generic Name Dose Route Start Last Admin Trade Name Freq PRN Reason Stop Dose Admin Albuterol 2 puff 12/20/24 20:47 12/20/24 21:32 Albuterol Sulfate (*Sp) Aerosol 1 Puff INHALATION 2 puff QID PRN Administration shortness of breath or wheezing Aspirin 81 mg 12/21/24 09:00 12/21/24 10:08 Aspirin 81 Mg Enteric Tablet PO 81 mg QAM [facility] Administration Clopidogrel Bisulfate 75 mg 12/22/24 09:00 Clopidogrel Bisulfate 75 Mg Tablet PO QAM [facility] Nitroglycerin 0.4 mg 12/20/24 07:39 12/22/24 03:23 Nitroglycerin Sl 0.4 Mg Tablet SUBLINGUAL 0.4 mg Q5MIN PRN Administration Chest Pain Ondansetron HCl 4 mg 12/20/24 07:39 Ondansetron Inj 4 Mg/2 Ml Vial IV PUSH Q4H PRN Nausea Perflutren Lipid Microsphere 0 ml 12/20/24 16:16 Perflutren Lipid Microspheres 1.5 Ml Vial Diluted To 10 Ml Total Volume IV PUSH 12/23/24 16:17 ONCE PRN adequate visualization Protocol Rosuvastatin Calcium 20 mg 12/21/24 09:00 12/21/24 10:08 Rosuvastatin 20 Mg Tablet PO 20 mg QAM [facility] Administration Fluticasone/Salmeterol 2 puff 12/21/24 08:00 12/22/24 09:05 Fluticasone/Salmeterol 45-21 Mcg Inhaler 1 Puff INHALATION Not Given Q12HRT [facility] Radiology Results: ITS Impressions Chest X-Ray 12/20/24 05:49 Impression: Normal chest. Labs Labs: Laboratory Results - last 24 hr 12/21/24 12/22/24 12/22/24 11:59 03:31 06:27 WBC 15.9 H RBC 4.12 L Hgb 13.4 L Hct 40.3 L MCV 97.8 MCH 32.5 MCHC 33.3 RDW 13.2 Plt Count 187 MPV 9.7 Immature Gran % (Auto) 0.9 H Neut % (Auto) 78.7 H Lymph % (Auto) 12.2 L [place] % (Auto) 7.8 Eos % (Auto) 0.2 Baso % (Auto) 0.2 Lymph # (Auto) 1.93 [place] # (Auto) 1.2 H Eos # (Auto) 0.0 Baso # (Auto) 0.0 Abs Immat Gran (auto) 0.14 H Absolute Neuts (auto) 12.5 H Absolute Nucleated RBC 0.000 Nucleated RBC % 0.0 Activ Coag Time Kaolin 279 H Sodium 136 L Potassium 3.9 Chloride 107 Carbon Dioxide 22 Anion Gap 7 BUN 15 Creatinine 0.84 Estim Creat Clear Calc 82 Estimated GFR > 60 Glucose 107 Calcium 9.0 Magnesium 2.1 Total Bilirubin 0.3 AST 71 H ALT 31 Alkaline Phosphatase 73 Troponin I 6.920 H* 9.210 H* D Total Protein 6.9 Albumin 4.0
[2024-12-22] MEDS: CLOPIDOGREL BISULFATE 75 MG TABLET PO (10:54)
[2024-12-22] MEDS: ASPIRIN 81 MG ENTERIC TABLET PO (10:54)
[2024-12-22] MEDS: ROSUVASTATIN 20 MG TABLET PO (10:54)
--- NOTE | 2024-12-22 10:54 | IVDEFINITY ---
Prior to administration of IV Definity the patient was educated on the risks and benefits of the imaging enhancing agent including potential adverse side effects. The patient verbalized understanding. Allergies were verified. No exclusion criteria were identified and at least one of the following inclusion criteria were met: 1) physician request, 2) patient technically difficult to image (per the [place] [employer] guidelines of two or more segments not discernable within the apical view), or 3) questionable left ventricular function. ?
[2024-12-22 10:58] LABS: Troponin I 10.000 ng/mL (0.000-0.034)
[2024-12-22] MEDS: ISOSORBIDE MONONITRATE 30 MG TAB.ER.24H PO (10:58)
--- NOTE | 2024-12-22 12:39 | P.PNIM_ITS ---
Progress Note: A&P Assessment and Plan (1) Non-ST elevation [place] (NSTEMI): Code(s): I21.4 - Non-ST elevation (NSTEMI) myocardial infarction Status: Acute Plan NSTEMI s/p PCI to circumflex OM 2 still having chest pain today EKG no acute ST-T changes A1c 6.0 , LDL 116 Aspirin, plavix and Crestor continue Nitrate for chest pain per cards Trend troponin, f/u ECHO Cardiology following COPD Smokes about 1PPD Counseled about smoking cessation PRN duoneb Prediabetes A1c 6.0 will discharge on Metformin DVT prophylaxis on Sq Lovenox Subjective Date/time seen: 12/22/24 12:39 Interval history: Comfortable at bedside Review of Systems Review of Systems: All other systems were reviewed and negative except as noted in the HPI above Exam Narrative: General: alert and comfortable Eyes: EOMI, PERRLA ENNT External ears normal, Neck is supple, no masses, Respiratory systems: Clear to auscultation Cardiovascular S1, S2, normal rhythm, no murmur, rub, or gallop; no thrill or palpable murmurs on palpation. Gastrointestinal: soft, non-tender, and non-distended abdomen with no masses; BS present Skin: no rash, lesions, ulcerations, subcutaneous nodules or induration Musculoskeletal: no abnormality and no tenderness, normal ROM Neurologic: Alert and oriented x3, non focal Mental Status Exam: normal affect Objective Data Vital Signs Vital Signs: Vital Signs - 24 hr 12/21/24 12:45 12/21/24 12:45 12/21/24 13:00 Temperature Pulse Rate 60 Pulse Rate [Right Radial Palpation] 60 69 Respiratory Rate 16 Blood Pressure 96/81 L Pulse Oximetry 95 Oxygen Delivery Room Air 12/21/24 13:00 12/21/24 13:15 12/21/24 13:15 Temperature Pulse Rate 69 68 Pulse Rate [Right Radial Palpation] 68 Respiratory Rate 20 16 Blood Pressure 144/85 H 136/86 Pulse Oximetry 96 95 Oxygen Delivery Room Air Room Air 12/21/24 13:30 12/21/24 13:30 12/21/24 13:45 Temperature Pulse Rate 57 L Pulse Rate [Right Radial Palpation] 57 L 87 Respiratory Rate 15 Blood Pressure 137/87 Pulse Oximetry 93 Oxygen Delivery Room Air 12/21/24 13:45 12/21/24 14:00 12/21/24 14:00 Temperature Pulse Rate 87 85 Pulse Rate [Right Radial Palpation] 85 Respiratory Rate 20 18 Blood Pressure 94/70 L 97/73 L Pulse Oximetry 93 97 Oxygen Delivery Room Air Room Air 12/21/24 14:15 12/21/24 14:15 12/21/24 14:30 Temperature Pulse Rate 82 Pulse Rate [Right Radial Palpation] 82 85 Respiratory Rate 14 Blood Pressure 94/68 L Pulse Oximetry 97 Oxygen Delivery Room Air 12/21/24 14:30 12/21/24 14:45 12/21/24 14:45 Temperature Pulse Rate 85 90 Pulse Rate [Right Radial Palpation] 90 Respiratory Rate 15 16 Blood Pressure 130/78 132/76 Pulse Oximetry 97 97 Oxygen Delivery Room Air Room Air 12/21/24 15:00 12/21/24 15:00 12/21/24 15:15 Temperature Pulse Rate 81 Pulse Rate [Right Radial Palpation] 84 79 Respiratory Rate 18 Blood Pressure 134/78 Pulse Oximetry 99 Oxygen Delivery Room Air 12/21/24 15:15 12/21/24 15:30 12/21/24 15:30 Temperature Pulse Rate 79 68 Pulse Rate [Right Radial Palpation] 68 Respiratory Rate 16 16 Blood Pressure 127/83 124/68 Pulse Oximetry 99 96 Oxygen Delivery Room Air Room Air 12/21/24 15:45 12/21/24 15:45 12/21/24 16:00 Temperature Pulse Rate 62 65 Pulse Rate [Right Radial Palpation] 62 Respiratory Rate 16 16 Blood Pressure 126/67 131/73 Pulse Oximetry 96 94 Oxygen Delivery Room Air Room Air 12/21/24 16:00 12/21/24 16:15 12/21/24 16:15 Temperature Pulse Rate 66 Pulse Rate [Right Radial Palpation] 65 68 Respiratory Rate 16 Blood Pressure 135/76 Pulse Oximetry 94 Oxygen Delivery Room Air 12/21/24 16:30 12/21/24 16:30 12/21/24 16:45 Temperature Pulse Rate 67 Pulse Rate [Right Radial Palpation] 67 67 Respiratory Rate 15 Blood Pressure 137/69 Pulse Oximetry 95 Oxygen Delivery Room Air 12/21/24 16:45 12/21/24 16:45 12/21/24 17:22 Temperature 98.2 F Pulse Rate 67 80 74 Pulse Rate [Right Radial Palpation] Respiratory Rate 17 20 Blood Pressure 141/76 H 139/75 Pulse Oximetry 94 97 Oxygen Delivery Room Air 12/21/24 18:00 12/21/24 18:30 12/21/24 20:00 Temperature 97.4 F L 97.8 F Pulse Rate 97 71 80 Pulse Rate [Right Radial Palpation] Respiratory Rate 24 H 18 Blood Pressure 127/99 H 135/62 Pulse Oximetry 100 96 Oxygen Delivery 12/21/24 20:00 12/21/24 20:00 12/21/24 20:30 Temperature Pulse Rate 77 80 Pulse Rate [Right Radial Palpation] Respiratory Rate 18 Blood Pressure Pulse Oximetry Oxygen Delivery Room Air 12/21/24 20:37 12/21/24 22:00 12/22/24 00:00 Temperature 98.7 F Pulse Rate 80 72 77 Pulse Rate [Right Radial Palpation] Respiratory Rate 18 16 Blood Pressure 129/62 Pulse Oximetry 96 99 Oxygen Delivery Room Air 12/22/24 00:00 12/22/24 00:00 12/22/24 02:00 Temperature Pulse Rate 66 66 Pulse Rate [Right Radial Palpation] Respiratory Rate Blood Pressure Pulse Oximetry Oxygen Delivery Room Air 12/22/24 03:18 12/22/24 03:23 12/22/24 04:00 Temperature Pulse Rate Pulse Rate [Right Radial Palpation] Respiratory Rate Blood Pressure 138/72 114/68 Pulse Oximetry Oxygen Delivery Room Air 12/22/24 04:00 12/22/24 04:00 12/22/24 06:00 Temperature 99.1 F Pulse Rate 61 66 60 Pulse Rate [Right Radial Palpation] Respiratory Rate 18 Blood Pressure 121/64 Pulse Oximetry 98 Oxygen Delivery 12/22/24 08:00 12/22/24 08:00 12/22/24 08:08 Temperature 97.7 F Pulse Rate 70 60 Pulse Rate [Right Radial Palpation] Respiratory Rate 18 Blood Pressure 136/70 Pulse Oximetry 97 Oxygen Delivery Room Air 12/22/24 10:00 12/22/24 11:55 12/22/24 12:00 Temperature 97.5 F L Pulse Rate 71 56 L Pulse Rate [Right Radial Palpation] Respiratory Rate 20 Blood Pressure 119/70 Pulse Oximetry 98 Oxygen Delivery Room Air 12/22/24 12:00 Temperature Pulse Rate 62 Pulse Rate [Right Radial Palpation] Respiratory Rate Blood Pressure Pulse Oximetry Oxygen Delivery Intake/Output Intake/Output: Intake & Output 12/19/24 12/20/24 12/21/24 12/22/24 23:59 23:59 23:59 23:59 Intake Total 748.7 1545 480 Output Total 0 Balance 748.7 1545 480 Meds/Results Medications: Active Medications Generic Name Dose Route Start Last Admin Trade Name Freq PRN Reason Stop Dose Admin Albuterol 2 puff 12/20/24 20:47 12/20/24 21:32 Albuterol Sulfate (*Sp) Aerosol 1 Puff INHALATION 2 puff QID PRN Administration shortness of breath or wheezing Aspirin 81 mg 12/21/24 09:00 12/22/24 10:54 Aspirin 81 Mg Enteric Tablet PO 81 mg QAM [facility] Administration Clopidogrel Bisulfate 75 mg 12/22/24 09:00 12/22/24 10:54 Clopidogrel Bisulfate 75 Mg Tablet PO 75 mg QAM [facility] Administration Isosorbide Mononitrate 30 mg 12/22/24 11:00 12/22/24 10:58 Isosorbide Mononitrate 30 Mg Tab.Er.24h PO 30 mg QAM [facility] Administration Nitroglycerin 0.4 mg 12/20/24 07:39 12/22/24 03:23 Nitroglycerin Sl 0.4 Mg Tablet SUBLINGUAL 0.4 mg Q5MIN PRN Administration Chest Pain Ondansetron HCl 4 mg 12/20/24 07:39 Ondansetron Inj 4 Mg/2 Ml Vial IV PUSH Q4H PRN Nausea Rosuvastatin Calcium 20 mg 12/21/24 09:00 12/22/24 10:54 Rosuvastatin 20 Mg Tablet PO 20 mg QAM [facility] Administration Fluticasone/Salmeterol 2 puff 12/21/24 08:00 12/22/24 09:05 Fluticasone/Salmeterol 45-21 Mcg Inhaler 1 Puff INHALATION Not Given Q12HRT [facility] Radiology Results: ITS Impressions Chest X-Ray 12/20/24 05:49 Impression: Normal chest. Labs Labs: Laboratory Results - last 24 hr 12/22/24 12/22/24 12/22/24 03:31 06:27 10:05 WBC 15.9 H RBC 4.12 L Hgb 13.4 L Hct 40.3 L MCV 97.8 MCH 32.5 MCHC 33.3 RDW 13.2 Plt Count 187 MPV 9.7 Immature Gran % (Auto) 0.9 H Neut % (Auto) 78.7 H Lymph % (Auto) 12.[address] % (Auto) 7.8 Eos % (Auto) 0.2 Baso % (Auto) 0.2 Lymph # (Auto) 1.93 Lane # (Auto) 1.2 H Eos # (Auto) 0.0 Baso # (Auto) 0.0 Abs Immat Gran (auto) 0.14 H Absolute Neuts (auto) 12.5 H Absolute Nucleated RBC 0.000 Nucleated RBC % 0.0 Sodium 136 L Potassium 3.9 Chloride 107 Carbon Dioxide 22 Anion Gap 7 BUN 15 Creatinine 0.84 Estim Creat Clear Calc 82 Estimated GFR > 60 Glucose 107 Calcium 9.0 Magnesium 2.1 Total Bilirubin 0.3 AST 71 H ALT 31 Alkaline Phosphatase 73 Troponin I 6.920 H* 9.210 H* D 10.000 H* Total Protein 6.9 Albumin 4.0
[2024-12-22] MEDS: ENOXAPARIN 40 MG/0.4 ML SYRINGE SUB-Q (14:27)
[2024-12-22] MEDS: FLUTICASONE/SALMETEROL 45-21 MCG INHALER 1 PUFF 2 PUFF INHALATION (20:22)
[2024-12-22] MEDS: ACETAMINOPHEN 325 MG TABLET 650 MG PO (22:23)
[2024-12-23] VITALS (22 sets, daily range): BP systolic 91–139; BP diastolic 52–79; PULSE 53–97; RESP 16–72; TEMP 36.5–36.9; O2SAT 95–99
[2024-12-23] MEDS: CLOPIDOGREL BISULFATE 75 MG TABLET PO (08:04)
[2024-12-23] MEDS: ENOXAPARIN 40 MG/0.4 ML SYRINGE SUB-Q (08:04)
[2024-12-23] MEDS: ROSUVASTATIN 20 MG TABLET PO (08:04)
[2024-12-23] MEDS: ASPIRIN 81 MG ENTERIC TABLET PO (08:04)
[2024-12-23] MEDS: ISOSORBIDE MONONITRATE 30 MG TAB.ER.24H PO (08:04)
[2024-12-23] MEDS: ACETAMINOPHEN 325 MG TABLET 650 MG PO (08:08)
[2024-12-23 08:26] LABS: Hematocrit 39.7 % (42.0-52.0); Hemoglobin 13.3 g/dL (14.0-18.0); Immature Granulocyte Percent A 0.7 % (0-0.5); Lymphocytes Absolute Auto 1.82 K/mm3 (0.9-3.2); Mean Corpuscular HGB Conc 33.5 g/dl (32-36); Mean Corpuscular Hemoglobin 32.6 pg (26-34); Mean Corpuscular Volume 97.3 fl (80-100); Nucleated Red Blood Cells Absolute Auto 0.000 K/mm3 (0.0-0.012); Nucleated Red Blood Cells Perc 0.0 % (0.0-0.2); Platelet Count Result 174 k/mm3 (150-375); Red Blood Count 4.08 M/mm3 (4.6-6.20); White Blood Count 10.7 K/mm3 (4.5-10.0)
[2024-12-23] MEDS: FLUTICASONE/SALMETEROL 45-21 MCG INHALER 1 PUFF 2 PUFF INHALATION ×2 (08:35→21:08)
[2024-12-23 08:53] LABS: Troponin I 5.800 ng/mL (0.000-0.034)
--- NOTE | 2024-12-23 13:09 | P.PNCA_ITS ---
Progress Note: A&P Assessment and Plan (1) Non-ST elevation [place] (NSTEMI): Code(s): I21.4 - Non-ST elevation (NSTEMI) myocardial infarction Status: Acute Plan NSTEMI status post PCI to LCX with UMAIR Recurrent episodes of chest pain typical improving mild pain Mixed dyslipidemia Plan Aspirin Plavix Statin Imdur Continue to observe for one more day in the hospital Subjective Date/time seen: 12/23/24 13:09 Interval history: Reason for current or follow-up for chest pain and NSTEMI Chief complaint chest pain recurrent episodes of chest pain improving since yesterday but still present, last episode this morning lasted for few minutes, left-sided pain sharp Telemetry sinus rhythm Review of Systems Review of Systems: All systems reviewed & are unremarkable except as noted in HPI and below Exam Const: General: comfortable and no acute distress HENMT: Face/Nose/Sinus: Normal nares present Eyes: Sclera: sclerae normal and scleral abnormality Neck: Neck: supple and no JVD Resp: Effort & Inspection: normal respiratory effort Auscultation: clear to auscultation bilaterally Cardio: Rate: regular rate and bradycardic GI: GI Palp: Yes Soft to palpation Auscultation: normal bowel sounds Skin: General skin exam: normal color Neuro: Other: Alert and oriented x3 Extrem: General: normal to inspection Objective Data Vital Signs Vital Signs: Vital Signs - 24 hr 12/22/24 14:00 12/22/24 16:00 12/22/24 16:00 Temperature Pulse Rate 66 58 L Respiratory Rate Blood Pressure Pulse Oximetry Oxygen Delivery Room Air 12/22/24 16:12 12/22/24 18:00 12/22/24 20:00 Temperature 36.8 C Pulse Rate 60 65 63 Respiratory Rate 20 Blood Pressure 116/63 Pulse Oximetry 98 Oxygen Delivery 12/22/24 20:22 12/22/24 20:22 12/22/24 20:59 Temperature 36.7 C Pulse Rate 62 62 59 L Respiratory Rate 20 20 20 Blood Pressure 109/60 Pulse Oximetry 96 98 Oxygen Delivery Room Air 12/22/24 21:15 12/22/24 22:00 12/22/24 23:30 Temperature Pulse Rate 59 L 64 60 Respiratory Rate 20 18 Blood Pressure Pulse Oximetry 98 93 Oxygen Delivery Room Air Room Air 12/22/24 23:32 12/23/24 00:00 12/23/24 01:23 Temperature 36.6 C Pulse Rate 60 55 L 66 Respiratory Rate 18 Blood Pressure 118/64 Pulse Oximetry 93 Oxygen Delivery 12/23/24 03:48 12/23/24 03:56 12/23/24 04:00 Temperature 36.9 C Pulse Rate 56 L 56 L 53 L Respiratory Rate 18 18 Blood Pressure 121/52 L Pulse Oximetry 99 99 Oxygen Delivery Room Air 12/23/24 05:12 12/23/24 07:55 12/23/24 08:00 Temperature 36.9 C Pulse Rate 57 L 65 66 Respiratory Rate 20 Blood Pressure 139/75 Pulse Oximetry 95 Oxygen Delivery 12/23/24 08:34 12/23/24 08:35 12/23/24 08:36 Temperature Pulse Rate 65 65 Respiratory Rate 16 16 Blood Pressure Pulse Oximetry 95 Oxygen Delivery Room Air 12/23/24 10:00 12/23/24 11:39 12/23/24 12:00 Temperature 36.5 C Pulse Rate 85 66 64 Respiratory Rate 20 Blood Pressure 91/62 L Pulse Oximetry 98 Oxygen Delivery Intake/Output Intake/Output: Intake & Output 12/20/24 12/21/24 12/22/24 12/23/24 23:59 23:59 23:59 23:59 Intake Total 748.7 1545 1260 830 Output Total 0 1280 Balance 748.7 1545 1260 -450 Meds/Results Medications: Active Medications Generic Name Dose Route Start Last Admin Trade Name Freq PRN Reason Stop Dose Admin Acetaminophen 650 mg 12/22/24 21:27 12/23/24 08:08 Acetaminophen 325 Mg Tablet PO 650 mg Q4H PRN Administration Mild Pain (1-3) or Fever Albuterol 2 puff 12/20/24 20:47 12/20/24 21:32 Albuterol Sulfate (*Sp) Aerosol 1 Puff INHALATION 2 puff QID PRN Administration shortness of breath or wheezing Aspirin 81 mg 12/21/24 09:00 12/23/24 08:04 Aspirin 81 Mg Enteric Tablet PO 81 mg QAM [facility] Administration Clopidogrel Bisulfate 75 mg 12/22/24 09:00 12/23/24 08:04 Clopidogrel Bisulfate 75 Mg Tablet PO 75 mg QAM [facility] Administration Enoxaparin Sodium 40 mg 12/22/24 13:00 12/23/24 08:04 Enoxaparin 40 Mg/0.4 Ml Syringe SUB-Q 40 mg DAILY [facility] Administration Isosorbide Mononitrate 30 mg 12/22/24 11:00 12/23/24 08:04 Isosorbide Mononitrate 30 Mg Tab.Er.24h PO 30 mg QAM [facility] Administration Nitroglycerin 0.4 mg 12/20/24 07:39 12/22/24 03:23 Nitroglycerin Sl 0.4 Mg Tablet SUBLINGUAL 0.4 mg Q5MIN PRN Administration Chest Pain Ondansetron HCl 4 mg 12/20/24 07:39 Ondansetron Inj 4 Mg/2 Ml Vial IV PUSH Q4H PRN Nausea Rosuvastatin Calcium 20 mg 12/21/24 09:00 12/23/24 08:04 Rosuvastatin 20 Mg Tablet PO 20 mg QAM [facility] Administration Fluticasone/Salmeterol 2 puff 12/21/24 08:00 12/23/24 08:35 Fluticasone/Salmeterol 45-21 Mcg Inhaler 1 Puff INHALATION 2 puff Q12HRT [facility] Administration Radiology Results: ITS Impressions Chest X-Ray 12/23/24 08:28 IMPRESSION: 1. New opacities at the lateral left lung base which could represent atelectasis or pneumonia. Labs Labs: Laboratory Results - last 24 hr 12/23/24 12/23/24 12/23/24 08:18 08:19 10:38 WBC 10.7 H RBC 4.08 L Hgb 13.3 L Hct 39.7 L MCV 97.3 MCH 32.6 MCHC 33.5 RDW 13.2 Plt Count 174 MPV 10.0 Immature Gran % (Auto) 0.7 H Neut % (Auto) 74.3 H Lymph % (Auto) 17.0 L [place] % (Auto) 6.4 Eos % (Auto) 1.3 Baso % (Auto) 0.3 Lymph # (Auto) 1.82 [place] # (Auto) 0.7 H Eos # (Auto) 0.1 Baso # (Auto) 0.0 Abs Immat Gran (auto) 0.07 H Absolute Neuts (auto) 8.0 H Absolute Nucleated RBC 0.000 Nucleated RBC % 0.0 Lactic Acid 2.7 H 1.0 Troponin I 5.800 H*
--- NOTE | 2024-12-23 13:52 | P.PNIM_ITS ---
Progress Note: A&P Assessment and Plan (1) Non-ST elevation [place] (NSTEMI): Code(s): I21.4 - Non-ST elevation (NSTEMI) myocardial infarction Status: Acute Plan NSTEMI s/p PCI to circumflex OM 2 still having chest pain today EKG no acute ST-T changes A1c 6.0 , LDL 116 Aspirin, Plavix and Crestor continue Nitrate for chest pain per cards Troponin trending down, ECHO showed normal EF with grade 1 diastolic dysfunction Cardiology following Pneumonia CXR showed bilateral infiltrates Blood culture and MRSA pending Start on Levaquin monitor COPD Smokes about 1PPD Counseled about smoking cessation PRN duoneb Prediabetes A1c 6.0 will discharge on Metformin DVT prophylaxis on Sq Lovenox Subjective Date/time seen: 12/23/24 13:52 Interval history: Comfortable at bedside Cardiology reocmmended one more day in the hospital CXR showed PNA Review of Systems Review of Systems: All other systems were reviewed and negative except as noted in the HPI above Exam Narrative: General: alert and comfortable Eyes: EOMI, PERRLA ENNT External ears normal, Neck is supple, no masses, Respiratory systems: Clear to auscultation Cardiovascular S1, S2, normal rhythm, no murmur, rub, or gallop; no thrill or palpable murmurs on palpation. Gastrointestinal: soft, non-tender, and non-distended abdomen with no masses; BS present Skin: no rash, lesions, ulcerations, subcutaneous nodules or induration Musculoskeletal: no abnormality and no tenderness, normal ROM Neurologic: Alert and oriented x3, non focal Mental Status Exam: normal affect Objective Data Vital Signs Vital Signs: Vital Signs - 24 hr 12/22/24 14:00 12/22/24 16:00 12/22/24 16:00 Temperature Pulse Rate 66 58 L Respiratory Rate Blood Pressure Pulse Oximetry Oxygen Delivery Room Air 12/22/24 16:12 12/22/24 18:00 12/22/24 20:00 Temperature 98.2 F Pulse Rate 60 65 63 Respiratory Rate 20 Blood Pressure 116/63 Pulse Oximetry 98 Oxygen Delivery 12/22/24 20:22 12/22/24 20:22 12/22/24 20:59 Temperature 98.1 F Pulse Rate 62 62 59 L Respiratory Rate 20 20 20 Blood Pressure 109/60 Pulse Oximetry 96 98 Oxygen Delivery Room Air 12/22/24 21:15 12/22/24 22:00 12/22/24 23:30 Temperature Pulse Rate 59 L 64 60 Respiratory Rate 20 18 Blood Pressure Pulse Oximetry 98 93 Oxygen Delivery Room Air Room Air 12/22/24 23:32 12/23/24 00:00 12/23/24 01:23 Temperature 98 F Pulse Rate 60 55 L 66 Respiratory Rate 18 Blood Pressure 118/64 Pulse Oximetry 93 Oxygen Delivery 12/23/24 03:48 12/23/24 03:56 12/23/24 04:00 Temperature 98.4 F Pulse Rate 56 L 56 L 53 L Respiratory Rate 18 18 Blood Pressure 121/52 L Pulse Oximetry 99 99 Oxygen Delivery Room Air 12/23/24 05:12 12/23/24 07:55 12/23/24 08:00 Temperature 98.4 F Pulse Rate 57 L 65 66 Respiratory Rate 20 Blood Pressure 139/75 Pulse Oximetry 95 Oxygen Delivery 12/23/24 08:34 12/23/24 08:35 12/23/24 08:36 Temperature Pulse Rate 65 65 Respiratory Rate 16 16 Blood Pressure Pulse Oximetry 95 Oxygen Delivery Room Air 12/23/24 10:00 12/23/24 11:39 12/23/24 12:00 Temperature 97.7 F Pulse Rate 85 66 64 Respiratory Rate 20 Blood Pressure 91/62 L Pulse Oximetry 98 Oxygen Delivery Intake/Output Intake/Output: Intake & Output 12/20/24 12/21/24 12/22/24 12/23/24 23:59 23:59 23:59 23:59 Intake Total 748.7 1545 1260 830 Output Total 0 1280 Balance 748.7 1545 1260 -450 Meds/Results Medications: Active Medications Generic Name Dose Route Start Last Admin Trade Name Freq PRN Reason Stop Dose Admin Acetaminophen 650 mg 12/22/24 21:27 12/23/24 08:08 Acetaminophen 325 Mg Tablet PO 650 mg Q4H PRN Administration Mild Pain (1-3) or Fever Albuterol 2 puff 12/20/24 20:47 12/20/24 21:32 Albuterol Sulfate (*Sp) Aerosol 1 Puff INHALATION 2 puff QID PRN Administration shortness of breath or wheezing Aspirin 81 mg 12/21/24 09:00 12/23/24 08:04 Aspirin 81 Mg Enteric Tablet PO 81 mg QAM KATTY Administration Clopidogrel Bisulfate 75 mg 12/22/24 09:00 12/23/24 08:04 Clopidogrel Bisulfate 75 Mg Tablet PO 75 mg QAM KATTY Administration Enoxaparin Sodium 40 mg 12/22/24 13:00 12/23/24 08:04 Enoxaparin 40 Mg/0.4 Ml Syringe SUB-Q 40 mg DAILY KATTY Administration Levofloxacin/Dextrose 750 mg in 150 mls @ 100 mls/hr 12/23/24 13:55 Levaquin 750 Mg/D5w 150 Ml IVPB Q24H [facility] Isosorbide Mononitrate 30 mg 12/22/24 11:00 12/23/24 08:04 Isosorbide Mononitrate 30 Mg Tab.Er.24h PO 30 mg QAM [facility] Administration Nitroglycerin 0.4 mg 12/20/24 07:39 12/22/24 03:23 Nitroglycerin Sl 0.4 Mg Tablet SUBLINGUAL 0.4 mg Q5MIN PRN Administration Chest Pain Ondansetron HCl 4 mg 12/20/24 07:39 Ondansetron Inj 4 Mg/2 Ml Vial IV PUSH Q4H PRN Nausea Rosuvastatin Calcium 20 mg 12/21/24 09:00 12/23/24 08:04 Rosuvastatin 20 Mg Tablet PO 20 mg QAM [facility] Administration Fluticasone/Salmeterol 2 puff 12/21/24 08:00 12/23/24 08:35 Fluticasone/Salmeterol 45-21 Mcg Inhaler 1 Puff INHALATION 2 puff Q12HRT KATTY Administration Radiology Results: ITS Impressions Chest X-Ray 12/23/24 08:28 IMPRESSION: 1. New opacities at the lateral left lung base which could represent atelectasis or pneumonia. Labs Labs: Laboratory Results - last 24 hr 12/23/24 12/23/24 12/23/24 08:18 08:19 10:38 WBC 10.7 H RBC 4.08 L Hgb 13.3 L Hct 39.7 L MCV 97.3 MCH 32.6 MCHC 33.5 RDW 13.2 Plt Count 174 MPV 10.0 Immature Gran % (Auto) 0.7 H Neut % (Auto) 74.3 H Lymph % (Auto) 17.0 L [place] % (Auto) 6.4 Eos % (Auto) 1.3 Baso % (Auto) 0.3 Lymph # (Auto) 1.82 [place] # (Auto) 0.7 H Eos # (Auto) 0.1 Baso # (Auto) 0.0 Abs Immat Gran (auto) 0.07 H Absolute Neuts (auto) 8.0 H Absolute Nucleated RBC 0.000 Nucleated RBC % 0.0 Lactic Acid 2.7 H 1.0 Troponin I 5.800 H*
[2024-12-23] MEDS: levoFLOXacin 750 MG/D5W 150 ML 750 MG/150 ML BAG 100 MG IVPB (15:44)
[2024-12-23] MEDS: PANTOPRAZOLE 40 MG TABLET PO (21:48)
[2024-12-24] VITALS (8 sets, daily range): BP systolic 112–137; BP diastolic 59–72; PULSE 59–81; RESP 14–20; TEMP 36.5–36.8; O2SAT 95–98
[2024-12-24 04:59] LABS: Hematocrit 40.5 % (42.0-52.0); Hemoglobin 13.5 g/dL (14.0-18.0); Immature Granulocyte Percent A 1.2 % (0-0.5); Lymphocytes Absolute Auto 2.08 K/mm3 (0.9-3.2); Mean Corpuscular HGB Conc 33.3 g/dl (32-36); Mean Corpuscular Hemoglobin 32.3 pg (26-34); Mean Corpuscular Volume 96.9 fl (80-100); Nucleated Red Blood Cells Absolute Auto 0.000 K/mm3 (0.0-0.012); Nucleated Red Blood Cells Perc 0.0 % (0.0-0.2); Platelet Count Result 174 k/mm3 (150-375); Red Blood Count 4.18 M/mm3 (4.6-6.20); White Blood Count 10.3 K/mm3 (4.5-10.0)
[2024-12-24 05:12] LABS: Alanine Aminotransferase 31 U/L (6-50); Albumin Level 4.0 g/dL (3.5-5.1); Alkaline Phosphatase 67 U/L (38-126); Anion Gap 7 mmol/L (4-12); Aspartate Amino Transferase 43 U/L (17-59); Bilirubin,Total 0.4 mg/dL (0.2-1.3); Blood Urea Nitrogen 9 mg/dL (9-20); Calcium 9.0 mg/dL (8.4-10.2); Carbon Dioxide 25 mmol/L (22-30); Chloride 104 mmol/L (98-107); Estimated CRCL calculation 76 ml/min; Estimated Glomerular Filt Rate > 60; Glucose 91 mg/dL (65-110); Magnesium 2.1 mg/dL (1.6-2.3); Potassium 3.9 mmol/L (3.4-5.0); Sodium 136 mmol/L (137-145); Total Protein 7.0 g/dL (6.3-8.2)
[2024-12-24] MEDS: CLOPIDOGREL BISULFATE 75 MG TABLET PO (09:10)
[2024-12-24] MEDS: ROSUVASTATIN 20 MG TABLET PO (09:10)
[2024-12-24] MEDS: ISOSORBIDE MONONITRATE 30 MG TAB.ER.24H PO (09:10)
[2024-12-24] MEDS: ASPIRIN 81 MG ENTERIC TABLET PO (09:10)
[2024-12-24] MEDS: PANTOPRAZOLE 40 MG TABLET PO (09:10)
[2024-12-24] MEDS: ENOXAPARIN 40 MG/0.4 ML SYRINGE SUB-Q (09:10)
--- NOTE | 2024-12-24 12:18 | P.PNCA_ITS ---
Progress Note: A&P Assessment and Plan (1) Non-ST elevation [place] (NSTEMI): Code(s): I21.4 - Non-ST elevation (NSTEMI) myocardial infarction Status: Acute Plan NSTEMI status post PCI to LCX with UMAIR chest pain improved Mixed dyslipidemia Plan Aspirin Plavix Statin Imdur can be discharged from cardiac stand point and f/u in clinic Subjective Date/time seen: 12/24/24 12:18 Interval history: Reason for current or follow-up for chest pain and NSTEMI Chief complaint chest pain improved signficantly Telemetry sinus rhythm Review of Systems Review of Systems: All systems reviewed & are unremarkable except as noted in HPI and below Exam Const: General: comfortable and no acute distress HENMT: Face/Nose/Sinus: Normal nares present Eyes: Sclera: sclerae normal and scleral abnormality Neck: Neck: supple and no JVD Resp: Effort & Inspection: normal respiratory effort Auscultation: clear to auscultation bilaterally Cardio: Rate: regular rate and bradycardic GI: GI Palp: Yes Soft to palpation Auscultation: normal bowel sounds Skin: General skin exam: normal color Neuro: Other: Alert and oriented x3 Extrem: General: normal to inspection Objective Data Vital Signs Vital Signs: Vital Signs - 24 hr 12/23/24 14:00 12/23/24 16:00 12/23/24 16:36 Temperature 36.7 C Pulse Rate 64 69 57 L Respiratory Rate 18 Blood Pressure 121/64 Pulse Oximetry 99 Oxygen Delivery 12/23/24 18:00 12/23/24 20:00 12/23/24 20:00 Temperature 36.9 C Pulse Rate 64 64 63 Respiratory Rate 16 Blood Pressure 124/79 Pulse Oximetry 98 Oxygen Delivery 12/23/24 21:11 12/23/24 21:11 12/23/24 21:25 Temperature Pulse Rate 97 64 Respiratory Rate 72 H 16 Blood Pressure Pulse Oximetry 97 98 Oxygen Delivery Room Air Room Air 12/23/24 22:00 12/24/24 00:00 12/24/24 00:00 Temperature 36.6 C Pulse Rate 63 81 72 Respiratory Rate 16 Blood Pressure 112/68 Pulse Oximetry 95 Oxygen Delivery 12/24/24 00:26 12/24/24 02:00 12/24/24 04:00 Temperature 36.7 C Pulse Rate 81 59 L 64 Respiratory Rate 16 14 Blood Pressure 129/66 Pulse Oximetry 95 97 Oxygen Delivery Room Air 12/24/24 04:00 12/24/24 04:00 12/24/24 06:00 Temperature Pulse Rate 64 67 59 L Respiratory Rate 14 Blood Pressure Pulse Oximetry 97 Oxygen Delivery Room Air 12/24/24 08:00 12/24/24 12:00 Temperature 36.8 C 36.5 C Pulse Rate 60 77 Respiratory Rate 20 18 Blood Pressure 137/72 115/59 L Pulse Oximetry 96 98 Oxygen Delivery Intake/Output Intake/Output: Intake & Output 12/21/24 12/22/24 12/23/24 12/24/24 23:59 23:59 23:59 23:59 Intake Total 1545 1260 1570 540 Output Total 0 1280 680 Balance 1545 1260 290 -140 Meds/Results Medications: Active Medications Generic Name Dose Route Start Last Admin Trade Name Freq PRN Reason Stop Dose Admin Acetaminophen 650 mg 12/22/24 21:27 12/23/24 08:08 Acetaminophen 325 Mg Tablet PO 650 mg Q4H PRN Administration Mild Pain (1-3) or Fever Albuterol 2 puff 12/20/24 20:47 12/20/24 21:32 Albuterol Sulfate (*Sp) Aerosol 1 Puff INHALATION 2 puff QID PRN Administration shortness of breath or wheezing Aspirin 81 mg 12/21/24 09:00 12/24/24 09:10 Aspirin 81 Mg Enteric Tablet PO 81 mg QAM KATTY Administration Clopidogrel Bisulfate 75 mg 12/22/24 09:00 12/24/24 09:10 Clopidogrel Bisulfate 75 Mg Tablet PO 75 mg QAM KATTY Administration Enoxaparin Sodium 40 mg 12/22/24 13:00 12/24/24 09:10 Enoxaparin 40 Mg/0.4 Ml Syringe SUB-Q 40 mg DAILY KATTY Administration Levofloxacin/Dextrose 750 mg in 150 mls @ 100 mls/hr 12/23/24 14:00 12/23/24 17:59 Levaquin 750 Mg/D5w 150 Ml IVPB Infused Q24H KATTY Infusion Isosorbide Mononitrate 30 mg 12/22/24 11:00 12/24/24 09:10 Isosorbide Mononitrate 30 Mg Tab.Er.24h PO 30 mg QAM KATTY Administration Nitroglycerin 0.4 mg 12/20/24 07:39 12/22/24 03:23 Nitroglycerin Sl 0.4 Mg Tablet SUBLINGUAL 0.4 mg Q5MIN PRN Administration Chest Pain Ondansetron HCl 4 mg 12/20/24 07:39 Ondansetron Inj 4 Mg/2 Ml Vial IV PUSH Q4H PRN Nausea Pantoprazole Sodium 40 mg 12/23/24 20:00 12/24/24 09:10 Pantoprazole 40 Mg Tablet PO 40 mg QAM [facility] Administration Rosuvastatin Calcium 20 mg 12/21/24 09:00 12/24/24 09:10 Rosuvastatin 20 Mg Tablet PO 20 mg QAM [facility] Administration Fluticasone/Salmeterol 2 puff 12/21/24 08:00 12/24/24 08:33 Fluticasone/Salmeterol 45-21 Mcg Inhaler 1 Puff INHALATION Not Given Q12HRT [facility] Radiology Results: ITS Impressions Chest X-Ray 12/23/24 08:28 IMPRESSION: 1. New opacities at the lateral left lung base which could represent atelectasis or pneumonia. Labs Labs: Laboratory Results - last 24 hr 12/24/24 04:39 WBC 10.3 H RBC 4.18 L Hgb 13.5 L Hct 40.5 L MCV 96.9 MCH 32.3 MCHC 33.3 RDW 13.2 Plt Count 174 MPV 10.0 Immature Gran % (Auto) 1.2 H Neut % (Auto) 65.7 Lymph % (Auto) 20.1 [place] % (Auto) 10.5 H Eos % (Auto) 2.1 Baso % (Auto) 0.4 Lymph # (Auto) 2.08 [place] # (Auto) 1.1 H Eos # (Auto) 0.2 Baso # (Auto) 0.0 Abs Immat Gran (auto) 0.12 H Absolute Neuts (auto) 6.8 H Absolute Nucleated RBC 0.000 Nucleated RBC % 0.0 Sodium 136 L Potassium 3.9 Chloride 104 Carbon Dioxide 25 Anion Gap 7 BUN 9 D Creatinine 0.90 Estim Creat Clear Calc 76 Estimated GFR > 60 Glucose 91 Calcium 9.0 Magnesium 2.1 Total Bilirubin 0.4 AST 43 ALT 31 Alkaline Phosphatase 67 Total Protein 7.0 Albumin 4.0
--- NOTE | 2024-12-24 13:34 | PM.DS ---
DS: Admitting Diagnosis Discharge Date 12/24/24 Admitting Diagnosis Chest pain DS: Discharge Diagnosis Discharge Diagnosis (1) Non-ST elevation [place] (NSTEMI): Code(s): I21.4 - Non-ST elevation (NSTEMI) myocardial infarction Status: Acute (2) Suspected chronic obstructive pulmonary disease based on initial evaluation: Code(s): J44.9 - Chronic obstructive pulmonary disease, unspecified Status: Acute DS: Summary Hospital Course Hospital Course: 64 yo M with pMH of COPD presented to [facility] ER on account of chest pain. Noted symptoms started yesterday at about 5 pm, left sided stabbing pain with radiation to the Left arm, 8/10 in intensity. Denies any SOB, vomiting, abd pain, diarrhea, focal symptoms. ER eval ntoable for [facility] 55 EKG no acute changes labs notable for WBC 11.9, Troponin 1.76 repeat 3.97. CXR no acute changes. Cardiology was consulted and patient underwent cardiac cath with PCI to Circumflex OM2. Discharged on ASpirin, Plavix, Statin adn Imdur. Managed for pneumonia and discharged on Levaquin 5 more days Also started on Metformin for prediabetes, A1c 6.0. F/u with PCP in 3-5 days F/u with Cardiology as instructed Time Spent with Patient Time attestation: Total time spent providing and/or coordinating discharge services: DS: Data Data Completed and Pending Labs on day of discharge: Labs from last 24 hours 12/24/24 04:39 WBC 10.3 H RBC 4.18 L Hgb 13.5 L Hct 40.5 L MCV 96.9 MCH 32.3 MCHC 33.3 RDW 13.2 Plt Count 174 MPV 10.0 Immature Gran % (Auto) 1.2 H Neut % (Auto) 65.7 Lymph % (Auto) 20.1 [place] % (Auto) 10.5 H Eos % (Auto) 2.1 Baso % (Auto) 0.4 Lymph # (Auto) 2.08 [place] # (Auto) 1.1 H Eos # (Auto) 0.2 Baso # (Auto) 0.0 Abs Immat Gran (auto) 0.12 H Absolute Neuts (auto) 6.8 H Absolute Nucleated RBC 0.000 Nucleated RBC % 0.0 Sodium 136 L Potassium 3.9 Chloride 104 Carbon Dioxide 25 Anion Gap 7 BUN 9 D Creatinine 0.90 Estim Creat Clear Calc 76 Estimated GFR > 60 Glucose 91 Calcium 9.0 Magnesium 2.1 Total Bilirubin 0.4 AST 43 ALT 31 Alkaline Phosphatase 67 Total Protein 7.0 Albumin 4.0 Discharge Plan Discharge Attending physician on discharge: Barrera Menendez Consulting providers: Cordell Solo Discharging Clinician: Barrera Menendez Anticipated Discharge Date/Time: 12/24/24 13:31 Patient Disposition: Home Activity: as tolerated Diet: as tolerated, heart healthy and diabetic Patient Instructions: Antibiotic Form, Isosorbide Dinitrate (By mouth), Aspirin (By mouth), Clopidogrel (By mouth), Rosuvastatin (By mouth), How to Stop Smoking (GEN), Heart Healthy Diet (GEN), Cigarette Smoking and Your Health (GEN), Blood Thinners (DC), After Radial Heart Catheterization (GEN) Patient Language: [place] Stand Alone Forms: General Discharge Information Follow-up/Referrals: Cordell Solo MD [Physician] - (F/u with cardiology as instructed ) Kishor,Jian Mariee MD [Primary Care Provider] - (F/u with PCP in 3-5 days ) Discharge Medications: New aspirin 81 mg Tablet,Delayed Release (Dr/Ec) 81 mg PO QAM Qty: 90 0RF clopidogrel 75 mg Tablet 75 mg PO QAM Qty: 90 0RF rosuvastatin 20 mg Tablet 20 mg PO QHS Qty: 90 0RF isosorbide mononitrate 30 mg Tablet Extended Release 24 Hr 30 mg PO QAM 30 Days Qty: 30 0RF levofloxacin 750 mg tablet 750 mg PO DAILY 5 Days Qty: 5 0RF metformin 500 mg tablet 500 mg PO BID 30 Days Qty: 60 0RF Continued mirtazapine 45 mg tablet 45 mg PO HS PRN (Reason: sleep) sertraline 100 mg tablet 200 mg PO DAILY fluticasone propion-salmeterol [Advair HFA] 45-21 mcg/actuation Hfa Aerosol Inhaler 2 puff inhalation Q12HRT Qty: 1 0RF albuterol sulfate [Ventolin HFA] 90 mcg/actuation HFA aerosol inhaler 2 puff inhalation QID PRN (Reason: shortness of breath or wheezing) Qty: 8.5 1RF pantoprazole 40 mg tablet,delayed release (DR/EC) 80 mg PO DAILY penicillin V potassium 500 mg tablet 500 mg PO Q12H Date of admission: 12/20/24 13:42 Primary Care Provider: KishorJian Admitting Provider: Ifeoma Galvan Attending physician on admission: Ifeoma Galvan Condition: Stable
== END 2024-12-24 14:08 | disposition home or self-care (01) | DRG 174 ==
LOC: ANHED 07:45 → ANHIMU 08:27
PROVIDERS: Internal Medicine; Nurse Practitioner; Nurse Practitioner Gerontology; Specialist; Student in an Organized Health Care Education/Training Program; Admitting Provider General Practice; Emergency Provider Emergency Medicine; PCP Family Medicine; Visit Provider Internal Medicine
PROC: 4A023N7 Measurement of Cardiac Sampling and Pressure, Left Heart, Percutaneous Approach (ICD-10-PCS; CPT 93452; principal; 2024-12-21 11:30)
PROC: 027034Z Dilation of Coronary Artery, One Artery with Drug-eluting Intraluminal Device, Percutaneous Approach (ICD-10-PCS; CPT 92928; 2024-12-21 11:30)
PROC: 027035Z Dilation of Coronary Artery, One Artery with Two Drug-eluting Intraluminal Devices, Percutaneous Approach (ICD-10-PCS; 2024-12-21 11:30)
DX: I21.4 Non-ST elevation (NSTEMI) myocardial infarction (principal); I25.10 Atherosclerotic heart disease of native coronary artery without angina pectoris; J18.9 Pneumonia, unspecified organism; J44.9 Chronic obstructive pulmonary disease, unspecified; I45.2 Bifascicular block; R73.03 Prediabetes; E78.2 Mixed hyperlipidemia; F17.210 Nicotine dependence, cigarettes, uncomplicated
CPT/HCPCS: 36415; 71045; 71046; 80053; 80061; 83036; 83605; 83690; 83735; 84484; 85025; 85610; 85730; 87040; 92978; 93005; 93458; 94640; 96374; 96375; 99291; A9270; C1725; C1753; C1769; C1874; C1887; C1894; C8929; C9600; G0378; G0379; J1644; J1650; J1956; J2003; J2250; J2305; J2404; J3010; J7030; J7040; J7512; Q9957

== ENCOUNTER 2025-01-19 16:58 | Outpatient (CLI) | payer OTHER, SELFPAY ==
--- OUTSIDE RECORDS SUMMARY | 2025-01-19 17:02 | XMS_ITS | Clinical Summary ---
Author Organization [facility] Address [address] [place] [address] Care Team Providers Care Oral Therapist Name Role Phone Jian Iverson MD Primary Care Provider [phone] Allergies Active Allergy Reactions Criticality Noted Date Comments Amoxicillin Angioedema,Anaphylaxis High 03/07/2015 legs draw up Iodinated Contrast Media Anaphylaxis High 06/01/2024 Iodine Palpitations Low 03/11/2015 HEART RACING Medications hydrOXYzine (ATARAX) 50 mg tablet Take 1 tablet (50 mg total) by mouth 2 (two) times a day as needed 4 Active mirtazapine (REMERON) 45 mg tablet Take 1 tablet (45 mg total) by mouth nightly at bedtime. 4 Active sertraline (ZOLOFT) 100 mg tablet TAKE 2 TABLETS BY MOUTH ONCE DAILY IN THE MORNING 4 Active isosorbide mononitrate ER (IMDUR) 30 mg 24 hr tablet Take 1 tablet (30 mg total) by mouth daily Active varenicline tartrate (CHANTIX ISRRAEL) 0.5 mg (11)- 1 mg (42) tablet Days 1-3: 0.5 mg tablet once a day. Days 4-7: 0.5 mg tablets twice a day, once in the morning and once in the evening. Day 8 to end of treatment: 1 mg tablets twice a day, once in the morning and once in the evening. If quitting is successful after 12 weeks, continue another 12 weeks at 1 mg q12hr. 53 tablet 5 Active aspirin 81 mg enteric coated tablet Take 1 tablet (81 mg total) by mouth daily 30 tablet 11 5 08/26/20 26 Active clopidogreL (PLAVIX) 75 mg tablet Take 1 tablet (75 mg total) by mouth daily 30 tablet 01/10/20 Active rosuvastatin (CRESTOR) 20 mg tablet Take 1 tablet (20 mg total) by mouth nightly 30 tablet 01/10/20 Active aspirin 81 mg enteric coated tablet Take 1 tablet (81 mg total) by mouth daily 01/10/20 25 Discontin ued(Reord er) clopidogreL (PLAVIX) 75 mg tablet Take 1 tablet (75 mg total) by mouth daily 01/10/20 25 Discontin ued(Reord er) rosuvastatin (CRESTOR) 20 mg tablet Take 1 tablet (20 mg total) by mouth daily 01/10/20 25 Discontin ued(Reord er) Active Problems Problem Noted Date Diagnosed Date 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 Medical [facility] Cardiology [address] [place] [address] [place] [phone] Felix Gonzalez MD Coronary artery disease involving hoonah coronary artery of hoonah heart without angina pectoris (Primary Dx) 01/08/2025 1:00 PM CDT Ancillary Procedure [facility] Cardiology [address] [place] [address] [place] [phone] NSTEMI (non-ST elevated myocardial infarction) ([facility]) 12/26/2024 Orders Only [facility] Cardiology [address] [place] [address] [place] [phone] Renetta Solo MD 12/25/2024 Telephone [facility] Cardiology [address] [place] [address] [place] [phone] Renetta Solo MD 12/25/2024 Orders Only [facility] Cardiology [address] [place] [address] Andre Davies MD 12/22/[address] [facility] Cardiology [address] [place] [address] Felix Gonzalez MD 12/22/[address] [facility] Cardiology [address] [facility] [address] [place] [address] Hannah Landers MA Scheduling Appointments 12/21/2024 Orders Only [facility] [address] [place] [address] Renetta Solo MD 12/21/[address] 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 Gender Identity Not on file Sexual Orientation Not on file Obstetrics History Last Filed Vital Signs Vital Sign Reading Time Taken Comments Blood Pressure 116/56 01/09/2025 9:29 AM CDT Pulse 77 01/09/2025 9:29 AM CDT Temperature 36.7 C (98 F) 08/28/2015 3:14 PM CDT Respiratory Rate 16 01/09/2025 9:29 AM CDT Oxygen Saturation 94% 01/09/2025 9:29 AM CDT Inhaled Oxygen Concentration - - Weight 85.3 kg (188 lb) 01/09/2025 9:29 AM CDT Height 180.3 cm (5' 11) 01/09/2025 9:29 AM CDT Body Mass Index 26.22 01/09/2025 9:29 AM CDT Plan of Treatment Health Maintenance Due Date Last Done Comments Colon Cancer Screening-Colonoscopy 1960 Depression Screening 1960 Fall Risk Assessment 1960 DTaP/Tdap/Td Vaccine (1 - Tdap) 12/10/1970 Hepatitis B Screening 12/10/1977 Pneumococcal vaccine 65+ (1 of 2 - PCV) 12/10/1978 Lung Cancer Screening 12/10/2009 Zoster Vaccine (1 of 2) 12/10/2009 Prostate Cancer Screening-PSA 08/24/2024 08/24/2022, 06/18/2014 Abdominal Aortic Aneurysm (A AA) Screen 12/10/2024 02/02/2015 Well Visit 65+ 12/10/2024 Influenza Vaccine (#1) 2025 Hepatitis C Screening Completed 07/07/2018 , 05/25/2017, 05/25/2017, Additional history exists Procedures Procedure Name Priority Date/Time Associated Diagnosis Comments TRANSTHORACIC ECHO (TTE) COMPLETE W DOPPLER/CF Routine 01/08/2025 2:13 PM CDT NSTEMI (non-ST elevated myocardial infarction) (HCC) CARDIOLOGY DOCUMENT SCAN Routine 12/24/2024 11:55 AM CDT CARDIOLOGY DOCUMENT SCAN Routine 12/23/2024 11:50 AM CDT CARDIOLOGY DOCUMENT SCAN Routine 12/22/2024 4:06 PM CDT CARDIOLOGY DOCUMENT SCAN Routine 12/21/2024 12:55 PM CDT CARDIOLOGY DOCUMENT SCAN Routine 12/21/2024 12:31 PM CDT CARDIOLOGY DOCUMENT SCAN 12/21/2024 CARDIOLOGY DOCUMENT SCAN Routine 12/20/2024 9:46 AM CDT PSA, TOTAL AND FREE Routine 08/24/2022 1 1:41 AM CDT HEPATITIS C RNA, QUANTITATIVE, PCR Routine 07/07/2018 11:[address] ABDOMEN PELVIS WO CONTRAST Routine 02/02/2015 12:00 AM CDT from Last 3 Months or Most Recently Relevant to Health Maintenance Results * TRANSTHORACIC ECHO (TTE) COMPLETE W DOPPLER/CF W CONTRAST (01/08/2025 2:13 PM CDT) EF Mod BP 75 % CONS SCIMAGE Anatomical Region Laterality Modality Ultrasound 01/08/2025 1:07 PM CDT Narrative 01/08/2025 8:[address] [facility] Cardiology [address], [place] [address] [address], [place] [address] P:[phone] P:[phone] Echocardiographic Report Patient Name: ENRIKE CHAUHAN S : 1960 Study Date: 01/08/2025 1:07:34 PM Gender: M Tube Knitter: Guillermina Daniel)(CT), [facility] Location: [facility] Provider: RENETTA SOLO Height(Cm): 180 BSA: 1.97 Weight(Kg): 77.6 Heart Rate: 72 BP: 127 / 73 Quality: Good Order Provider: RENETTA SOLO PROCEDURES: Echocardiographic Report: Transthoracic echocardiogram with complete 2D, M-Mode, color Doppler examination and Definity contrast. With Strain Analysis. INDICATIONS: I21.4 Non-ST elevation (NSTEMI) myocardial infarction. MEASUREMENTS: 2D/MM Value Range Doppler Value Range EF Mod BP 75 % [ 52 - 72 ] ADELIA Vmax 2.45 cm2 [ 2.00 - 4.00 ] LV GLS -19.36 % AV Mean PG 8 mmHg LVIDd 2D 4.56 cm [ 4.20 - 5.80 ] AV Peak Dm 1.93 m/s [ 1.00 - 1.70 ] LVIDs 2D 2.52 cm [ 2.50 - 4.00 ] AV Peak PG 15 mmHg LVPWd 2D 1.23 cm [ 0.60 - 1.00 ] AV VTI 36.62 cm IVSd 2D 1.25 cm [ 0.60 - 1.00 ] LVOT Diam 1.97 cm [ 1.70 - 2.10 ] AoR Diam 2D 3.15 cm [ 3.10 - 3.70 ] LVOT Peak Dm 1.55 m/s [ 0.70 - 1.10 ] LA Volume 55.73 ml [ 18.00 - 58.00 ] LVOT VTI 29.71 cm LA Volume Index 28 cc/m2 [ 16 - 28 ] MV E Peak Dm 0.63 m/s [ 0.60 - 1.30 ] RA Volume 42.42 ml MV A Peak Dm 0.72 m/s [ 1.00 - 1.20 ] MV Decel Time 282 msec [ 104 - 258 ] PV Peak Dm 1.17 m/s [ 0.40 - 0.80 ] RV S` 13.17 mmHg Lateral E` 0.08 m/s [ 0.10 - 0.15 ] Septal E` 0.04 m/s [ 0.08 - 0.15 ] E` 0.06 m/s E/E` 10 Tapse 2.42 cm [ 1.71 - 5.00 ] 2D/MM Value Range Doppler Value Range - FINDINGS: Interpretation Site: Exam was interpreted at [facility] ER. Left Ventricle: Normal left ventricular size. Definity contrast agent used to visually enhance endocardial wall motion and contractility. Lot Number: [id number]. Normal left ventricular wall thickness. Hyperdynamic left ventricular function. No focal wall motion abnormalities. Impaired diastolic relaxation Grade I. Ejection fraction is measured at 75 %. Global Longitudinal Strain is -19 %. GLS is normal. Right Ventricle: Normal right ventricular size. Normal right ventricular systolic function. Left Atrium: The left atrium is normal in size. Right Atrium: The right atrium is normal in size. Atrial Septum: Normal atrial septum. Mitral Valve: Normal appearance of the mitral valve. Trivial regurgitation of the mitral valve. There is no hemodynamically significant mitral stenosis by Doppler. Aortic Valve: Normal appearance of the aortic valve. No evidence of hemodynamically significant aortic stenosis by Doppler. Trileaflet aortic valve. No aortic regurgitation. Tricuspid Valve: Normal appearance of the tricuspid valve. No evidence of tricuspid regurgitation. Pulmonic Valve: Normal appearance of the pulmonic valve. No evidence of pulmonic regurgitation. Pericardium: Normal pericardium with no significant pericardial effusion. Aorta: Sinus of Valsalva is normal. IVC: Normal size and normal respiratory collapse consistent with normal right atrial pressure (<5 mmHg). Pulmonary Artery: Normal pulmonary artery size. CONCLUSIONS: Normal left ventricular size. Definity contrast agent used to visually enhance endocardial wall motion and contractility. Lot Number: [id number]. Normal left ventricular wall thickness. Hyperdynamic left ventricular function. No focal wall motion abnormalities. Impaired diastolic relaxation Grade I. Ejection fraction is measured at 75 %. Global Longitudinal Strain is -19 %. GLS is normal. Trivial regurgitation of the mitral valve. Electronically Signed By: Dr. John Sharma [facility] 01/08/2025 8:44:58 PM CDT Procedure Note John Sharma MD - 01/08/2025 [facility] Cardiology [address] [facility] [address] [address] [address] [facility] [address], [place] [address] P:[phone] P:[phone] Echocardiographic Report Patient Name: ENRIKE CHAUHAN S : 1960 Study Date: 01/08/2025 1:07:34 PM Gender: M Tube Knitter: Guillermina Daniel)(CT), [facility] Location: [facility] Provider: RENETTA SOLO Height(Cm): 180 BSA: 1.97 Weight(Kg): 77.6 Heart Rate: 72 BP: 127 / 73 Quality: Good Order Provider: RENETTA SOLO PROCEDURES: Echocardiographic Report: Transthoracic echocardiogram with complete 2D, M-Mode, color Dopplerexamination and Definity contrast. With Strain Analysis. INDICATIONS: I21.4 Non-ST elevation (NSTEMI) myocardial infarction. MEASUREMENTS: 2D/MM Value Range Doppler ValueRange EF Mod BP 75 % [ 52 - 72 ] ADELIA Vmax 2.45cm2 [ 2.00 - 4.00 ] LV GLS -19.36 % AV Mean PG 8mmHg LVIDd 2D 4.56 cm [ 4.20 - 5.80 ] AV Peak Dm 1.93m/s [ 1.00 - 1.70 ] LVIDs 2D 2.52 cm [ 2.50 - 4.00 ] AV Peak PG 15mmHg LVPWd 2D 1.23 cm [ 0.60 - 1.00 ] AV VTI 36.62cm IVSd 2D 1.25 cm [ 0.60 - 1.00 ] LVOT Diam 1.97cm [ 1.70 - 2.10 ] AoR Diam 2D 3.15 cm [ 3.10 - 3.70 ] LVOT Peak Dm 1.55m/s [ 0.70 - 1.10 ] LA Volume 55.73 ml [ 18.00 - 58.00 ] LVOT VTI 29.71cm LA Volume Index 28 cc/m2 [ 16 - 28 ] MV E Peak Dm 0.63m/s [ 0.60 - 1.30 ] RA Volume 42.42 ml MV A Peak Dm 0.72m/s [ 1.00 - 1.20 ] MV Decel Time 282 msec [ 104 - 258 ] PV Peak Dm 1.17 m/s [ 0.40 - 0.80 ] RV S` 13.17 mmHg Lateral E` 0.08 m/s [ 0.10 - 0.15 ] Septal E` 0.04 m/s [ 0.08 - 0.15 ] E` 0.06 m/s E/E` 10 Tapse 2.42 cm [ 1.71 - 5.00 ] 2D/MM Value Range Doppler ValueRange - FINDINGS: Interpretation Site: Exam was interpreted at [facility] ER. Left Ventricle: Normal left ventricular size. Definity contrast agent used to visuallyenhance endocardial wall motion and contractility. Lot Number: [id number]. Normal leftventricular wall thickness. Hyperdynamic left ventricular function. No focal wall motionabnormalities. Impaired diastolic relaxation Grade I. Ejection fraction is measured at 75%. Global Longitudinal Strain is -19 %. GLS is normal. Right Ventricle: Normal right ventricular size. Normal right ventricular systolicfunction. Left Atrium: The left atrium is normal in size. Right Atrium: The right atrium is normal in size. Atrial Septum: Normal atrial septum. Mitral Valve: Normal appearance of the mitral valve. Trivial regurgitation of the mitralvalve. There is no hemodynamically significant mitral stenosis by Doppler. Aortic Valve: Normal appearance of the aortic valve. No evidence of hemodynamicallysignificant aortic stenosis by Doppler. Trileaflet aortic valve. No aortic regurgitation. Tricuspid Valve: Normal appearance of the tricuspid valve. No evidence of tricuspidregurgitation. Pulmonic Valve: Normal appearance of the pulmonic valve. No evidence of pulmonicregurgitation. Pericardium: Normal pericardium with no significant pericardial effusion. Aorta: Sinus of Valsalva is normal. IVC: Normal size and normal respiratory collapse consistent with normal rightatrial pressure (<5 mmHg). Pulmonary Artery: Normal pulmonary artery size. CONCLUSIONS: Normal left ventricular size. Definity contrast agent used to visuallyenhance endocardial wall motion and contractility. Lot Number: [id number]. Normal leftventricular wall thickness. Hyperdynamic left ventricular function. No focal wall motionabnormalities. Impaired diastolic relaxation Grade I. Ejection fraction is measured at 75%. Global Longitudinal Strain is -19 %. GLS is normal. Trivial regurgitation of the mitral valve. Electronically Signed By: Dr. John Sharma [facility] 01/08/2025 8:44:58 PM CDT Renetta Solo MD CV ECHO PROCEDURES Final Result * Cardiology Document Scan (12/24/2024 11:55 AM CDT) Anatomical Region Laterality Modality Other Result [facility] Andre Davies MD CV CARDIAC SERVICES PROCEDU RES Final Result * Cardiology Document Scan (12/23/2024 11:50 AM CDT) Anatomical Region Laterality Modality Other Result [facility] Andre Davies MD CV CARDIAC SERVICES PROCEDU RES Final Result * Cardiology Document Scan (12/22/2024 4:06 PM CDT) Anatomical Region Laterality Modality Other Result [facility] Renetta Solo MD CV CARDIAC SERVICES PROC EDURES Final Result * Cardiology Document Scan (12/21/2024 12:55 PM CDT) Anatomical Region Laterality Modality Other Felix Gonzalez MD CV CARDIAC SERVICES PROCEDURES F inal Result * Cardiology Document Scan (12/21/2024 12:31 PM CDT) Anatomical Region Laterality Modality Other Felix Gonzalez MD CV CARDIAC SERVICES PROCEDURES F inal Result * Cardiology Document Scan (12/21/2024) Anatomical Region Laterality Modality Other Renetta Solo MD CV CARDIAC SERVICES PROC EDURES Final Result * Cardiology Document Scan (12/20/2024 9:46 AM CDT) Anatomical Region Laterality Modality Other Renetta Solo MD CV CARDIAC SERVICES PROC EDURES Final Result * PSA, total and free (08/24/2022 11:41 AM CDT) Pathologist [facility] PSA-free 0.2 ng/mL [facility] PSA-Total 0.99 <=4.5 [...] absence of malignant disease. Test Performed by: [address] [address] [place] [employer] Operator: Isidro Saxena M.D. Ph.D.; CLIA# [id number] Blood 08/24/2022 11:4 1 AM CDT 08/24/2022 11:55 AM CDT us Jian Iverson MD LAB BLOOD ORDERABLES Final Resu lt [facility] [address] [facility] Department [place] [address] * Hepatitis C (HCV) RNA PCR, quantitative (07/07/2018 11:43 AM SILVERER) HCV RNA IU/mL Not Detected IU/mL 07/09/2018 4:08 PM SILVERER [facility] HISTORICAL RESULTS HCV RNA log IU/mL Not [...] and Cellular Tissue-Based Products (HCT/P). Performed by [facility], [address] [place] [id number] [email or web address], Kristian Farley MD, Lab. Director 07/07/2018 11:4 3 AM SILVERER 07/07/2018 12:24 PM SILVERER us Nishant Evans MD LAB MICROBIOLOGY - GENERAL ORDERABLES Final Result Performing Organization Address City/[facility]/ZIP Co de Phone Number [facility] HISTORICAL RESULTS * CT Abdomen Pelvis WO [...] Galvez M.D. NC:rusty 11:14 AM 11:14 AM [facility] [EOD] Procedure Note Provider, MD Cruzito [...] Galvez M.D. NC:rusty 11:14 AM 11:14 AM [facility] [EOD] us Historical Provider MD JIANG CT PROCEDURES Final R esult from Last 3 Months or Most Recently Relevant to Health Maintenance [place] [address] [facility] [place] [address] Care Teams Oral Therapist Relationship Specialty Start Date End Date Jian Iverson MD PCP - General Family Medicine 08/24/22
[2025-01-19 17:13] LABS: Hematocrit 44.3 % (42.0-52.0); Hemoglobin 14.9 g/dL (14.0-18.0); Immature Granulocyte Percent A 0.6 % (0-0.5); Lymphocytes Absolute Auto 1.57 K/mm3 (0.9-3.2); Mean Corpuscular HGB Conc 33.6 g/dl (32-36); Mean Corpuscular Hemoglobin 32.5 pg (26-34); Mean Corpuscular Volume 96.7 fl (80-100); Nucleated Red Blood Cells Absolute Auto 0.000 K/mm3 (0.0-0.012); Nucleated Red Blood Cells Perc 0.0 % (0.0-0.2); Platelet Count Result 167 k/mm3 (150-375); Red Blood Count 4.58 M/mm3 (4.6-6.20); White Blood Count 8.7 K/mm3 (4.5-10.0)
[2025-01-19 17:33] LABS: Alanine Aminotransferase 24 U/L (6-50); Albumin Level 4.7 g/dL (3.5-5.1); Alkaline Phosphatase 81 U/L (38-126); Anion Gap 9 mmol/L (4-12); Aspartate Amino Transferase 26 U/L (17-59); Bilirubin,Total 0.3 mg/dL (0.2-1.3); Blood Urea Nitrogen 8 mg/dL (9-20); Calcium 9.5 mg/dL (8.4-10.2); Carbon Dioxide 26 mmol/L (22-30); Chloride 103 mmol/L (98-107); Estimated Glomerular Filt Rate > 60; Glucose 125 mg/dL (65-110); Potassium 4.2 mmol/L (3.4-5.0); Sodium 138 mmol/L (137-145); Total Protein 8.1 g/dL (6.3-8.2)
[2025-01-19 18:04] LABS: Prostate Specific Antigen 0.3 ng/mL (< OR = 4.0)
== END 2025-01-19 16:59 | disposition home or self-care (01) ==
LOC: ANHLAB 17:00
PROVIDERS: PCP Family Medicine; Visit Provider Family Medicine
DX: J44.9 Chronic obstructive pulmonary disease, unspecified (principal); N40.0 Benign prostatic hyperplasia without lower urinary tract symptoms
CPT/HCPCS: 36415; 80053; 84153; 85025; G0103